=== PATIENT | female | born 1965 | race Caucasian/White ===

== ENCOUNTER 2021-03-16 08:50 | Emergency (ER) | payer OTHER, SELFPAY ==
--- NOTE | ~2021-03-16 | CT_ITS ---
EXAMINATION: CT ABDOMEN AND PELVIS WITH CONTRAST CLINICAL INFORMATION: Lower abdominal pain. COMPARISON: CT abdomen and pelvis with IV contrast 04/05/2018 TECHNIQUE: Multidetector volumetric images were obtained from the superior aspect of the liver through the pubic symphysis following administration 85 mL of Omnipaque 350 intravenous contrast. Sagittal and coronal reformatted images were obtained on the technologist's workstation. Oral contrast: No This CT examination was performed using dose optimization techniques as appropriate, variously including the following: *Automated exposure control *Adjustment of mA and/or kV according to patient size (this includes techniques or standardized protocols for targeted exams where dose is matched to indication/reason for exam; i.e. extremities or head) *Use of iterative reconstruction technique DLP: 342 mGy-cm FINDINGS: LUNG BASES: The visualized lung bases are unremarkable. LIVER, GALLBLADDER, AND BILIARY TREE: The liver is normal in size, shape, and attenuation. No focal hepatic lesion or biliary ductal dilatation is present. The gallbladder is unremarkable with no evidence of radiopaque gallstones, gallbladder wall thickening, or obvious pericholecystic inflammatory changes. PANCREAS: Unremarkable. SPLEEN: There is a 7 mm accessory splenule at the tip of the spleen.. ADRENAL GLANDS: Unremarkable. KIDNEYS AND URETERS: The kidneys are normal in size, shape, and attenuation. No hydronephrosis, hydroureter, or calculi seen. No perinephric stranding. BLADDER: Unremarkable. GASTROINTESTINAL TRACT: There is scattered colonic diverticulosis. There is mild mural thickening in numerous calculi seen in the sigmoid colon with mild fat stranding in the presacral space and left pelvic space suspicious for diverticulitis. There is no free air or air-fluid collection to suspect any perforation or abscess. Minimal free fluid is seen in the pelvis ABDOMINAL WALL: A small umbilical hernia containing fat is noted. LYMPH NODES: Normal. VASCULAR: Unremarkable. PELVIC VISCERA: There is minimal free fluid in the left pelvis. The uterus is anteverted and appears unremarkable. Previously seen subserosal fibroid is not well appreciated on this exam. No solid adnexal mass seen. OSSEOUS STRUCTURES: There is mild ventral spondylosis throughout the lumbar spine. CT/CT abdomen pelvis w con IMPRESSION: Colonic diverticulosis with mild mural thickening involving the sigmoid colon and mild fat stranding. Indication is minimal free fluid in the left pelvis. Findings are suspicious for diverticulitis. There is no free air or air-fluid collection to suspect perforation or abscess. No bowel obstruction seen.
[2021-03-16 08:55] VITALS: BP 137/83; PULSE 93; RESP 16; TEMP 36.9; O2SAT 99; BMI 22.1
--- NOTE | 2021-03-16 09:38 | ED.ABDPAIN ---
HPI - Abdominal Pain General Chief Complaint: Abdominal Pain Stated Complaint: abd pain Time Seen by Provider: 03/16/21 09:24 Source: patient Mode of arrival: ambulatory Limitations: no limitations History of Present Illness HPI narrative: 55-year-old female with a past medical history of diverticulitis here with complaints of lower abdominal pain for 2 weeks. No nausea, vomiting, diarrhea, urinary symptoms, fevers or chills. Feels similar to previous diverticulitis flares in the past Related Data Previous Rx's Medication Instructions Recorded fluconazole 150 mg tablet 150 mg PO Q3D #2 tab 03/16/21 (Diflucan) levofloxacin 750 mg tablet 750 mg PO DAILY 7 Days #7 tab 03/16/21 metronidazole 500 mg tablet 500 mg PO BID 7 Days #14 tab 03/16/21 ondansetron 4 mg disintegrating 4 mg PO Q6H PRN #10 tab 03/16/21 tablet oxycodone 5 mg tablet 5 mg PO Q8H PRN #10 tab 03/16/21 Allergies Allergy/AdvReac Type Severity Reaction Status Date / Time latex [LATEX] Allergy Intermediate HIVES Verified 03/16/21 08:57 peanut [PEANUT] AdvReac Mild COLD Verified 03/16/21 08:57 SORES peanuts Allergy Unknown hives Uncoded 05/23/16 00:00 Review of Systems Review of Systems Yes all other systems are reviewed and are negative Constitutional: Reports no additional constitutional complaints, Denies body ache(s), Denies chills, Denies fever(s), Denies headache(s) and Denies weakness Eyes: Reports no additional eye complaints and Denies change in vision Reports system reviewed and no additional complaints, except as documented, Denies dizziness, Denies headache(s), Denies nasal congestion, Denies nasal discharge and Denies neck pain Cardiovascular: Reports no additional cardiovascular complaints, Denies chest pain, Denies leg edema and Denies dyspnea Respiratory: Reports no additional respiratory complaints, Denies cough and Denies dyspnea Gastrointestinal: Reports no additional gastrointestinal complaints, Reports abdominal pain, Denies diarrhea, Denies nausea and Denies vomiting Genitourinary: Reports no additional female genitourinary complaints and Denies urinary incontinence Musculoskeletal: Reports no additional musculoskeletal complaints, Denies back pain, Denies arthralgias, Denies joint swelling, Denies neck pain, Denies numbness and Denies tingling Skin/Breast: Reports system reviewed and no additional complaints, except as docu and Denies rash Reports system reviewed and no additional complaints, except as documented, Denies Abnormal speech present, Denies dizziness, Denies headache(s), Denies numbness, Denies tingling and Denies weakness Physical Exam Vital Signs: Vital Signs: Last Vital Signs Temp 98.4 F 03/16/21 08:55 Pulse 93 03/16/21 08:55 Resp 16 03/16/21 08:55 BP 137/83 03/16/21 08:55 Pulse Ox 99 03/16/21 08:55 Body Mass Index 22.1 Const: General: cooperative, healthy appearing, comfortable and no acute distress Orientation/consciousness: patient oriented x3 Limitations: no limitations HENMT: Head: Yes normal to inspection Ears: hearing grossly normal bilaterally General nose exam: Normal external nose present Face and sinus: Yes normal facial exam Mouth: Normal oral and palatal mucosa present Throat: Yes posterior oropharynx normal Eyes: General: appearance normal, both eyes and all related structures Pupils: Equal, round and reactive pupils present Neck: Neck: Yes normal visual inspection Chest: Chest palpation & inspection: normal inspection of the chest Resp: Effort & Inspection: normal respiratory effort Auscultation: clear to auscultation bilaterally Cardio: Rate: regular rate Rhythm: regular rhythm Peripheral pulses: Peripheral pulses 2+ throughout GI: Inspection: Yes normal to inspection Palpation (GI): Soft to palpation and Tenderness to palpation present (GI) (Bilateral lower quadrants with guarding. No rebound) Auscultation: normal bowel sounds Back/Spine/Pelvis: Thoracic/Lumbar Spine: thoracic and lumbar spine normal to inspection Skin: General skin exam: no rashes or lesions noted Neuro: General: patient oriented x3, no focal motor deficits and normal sensation to monofilament Cranial nerves: Yes Equal, round and reactive pupils present Cognition (Neuro): normal cognition Speech: No Abnormal speech present Gait exam (Neuro): Normal gait present Motor exam (neuro): 5/5 motor strength present throughout Extrem: General: Yes normal to inspection Course Course Course Narrative: 55-year-old female here with lower abdominal pain for 2 weeks. History of diverticulitis and feels similar. On exam has tenderness. Will check labs, UA, CT 1240-CT scan consistent with diverticulitis. No evidence of perforation. Labs are normal. Pain well controlled. Tolerating p.o. with no vomiting. Will discharge patient home with antibiotics. Requesting Diflucan as she gets recurrent yeast infections. Reviewed worrisome signs and symptoms when to return to the emergency department. Comfortable discharge home. MDM - Abdominal Pain Differential Diagnosis Differential diagnosis: Likely abdominal pain and diverticulitis Medical Records Attestation: I reviewed the patient's medical records. Lab Data Attestation: I reviewed the patient's lab results. Result diagrams: 03/16/21 10:40 03/16/21 10:40 Labs: Lab Results 03/16/21 03/16/21 03/16/21 Range/Units 10:40 10:40 10:40 WBC 10.2 (4.8-10.8) X10*3/uL RBC 4.56 (4.20-5.50) X10*6/uL Hgb 13.5 (12.0-16.0) g/dl Hct 42.1 (37-47) % MCV 92.3 (80-98) fL MCH 29.6 (27.0-33.0) pg MCHC 32.1 (31.0-35.0) g/dl RDW 12.3 (11.0-16.0) % Plt Count 419 H (160-400) X10*3/uL MPV 9.6 (9.4-12.3) fL Immature Gran % (Auto) 0.4 (0.0-0.4) % Neut % (Auto) 74.8 H (45-73) % Lymph % (Auto) 12.3 L (20-40) % [place] % (Auto) 10.0 (2-11) % Eos % (Auto) 1.9 (0-4) % Baso % (Auto) 0.6 (0-2) % Lymph # (Auto) 1.3 (1.2-4.9) X10*3/uL [place] # (Auto) 1.0 (0.1-1.2) X10*3/uL Eos # (Auto) 0.2 (0.0-0.4) X10*3/uL Baso # (Auto) 0.1 (0.0-0.2) X10*3/uL Abs Immat Gran (auto) 0.04 H (0.00-0.03) X10*3/uL Absolute Neuts (auto) 7.7 (2.0-8.3) X10*3/uL Absolute Nucleated RBC 0.000 (0.0-0.012) X10*3/uL Nucleated RBC % (auto) 0.0 (0.0-0.2) /100WBC Sodium 138 (135-145) mmol/L Potassium 4.0 (3.3-5.1) mmol/L Chloride 103 (96-108) mmol/L Carbon Dioxide 28 (22-29) mmol/L Anion Gap 11 L (12-20) BUN 9 (9-16) mg/dL Creatinine 0.85 (0.5-1.4) mg/dL Estim Creat Clear Calc 62.6 Estimated GFR > 60 Random Glucose 92 (60-115) mg/dL Lactic Acid 0.8 (0.5-2.0) mmol/L Calcium 9.3 (8.4-10.2) mg/dL Total Bilirubin 0.7 (0.0-1.0) mg/dL Direct Bilirubin 0.3 (0.0-0.5) mg/dL AST 15 (5-31) U/L ALT 16 (0-31) U/L Alkaline Phosphatase 73 (39-117) U/L Total Protein 7.6 (6.5-8.0) g/dL Albumin 4.4 (3.5-5.0) g/dL Urine Color Urine Appearance Urine pH (5.0-8.0) Ur Specific [place] (1.005-1.025) Urine Protein (NEG-TRACE) MG/DL Urine Glucose (UA) (NEG) MG/DL Urine Ketones (NEG) MG/DL Urine Blood (NEG) Urine Nitrite (NEG) Ur Leukocyte Esterase (NEG) Urine Test (NEGATIVE) 03/16/21 03/16/21 Range/Units 10:40 10:40 WBC (4.8-10.8) X10*3/uL RBC (4.20-5.50) X10*6/uL Hgb (12.0-16.0) g/dl Hct (37-47) % MCV (80-98) fL MCH (27.0-33.0) pg MCHC (31.0-35.0) g/dl RDW (11.0-16.0) % Plt Count (160-400) X10*3/uL MPV (9.4-12.3) fL Immature Gran % (Auto) (0.0-0.4) % Neut % (Auto) (45-73) % Lymph % (Auto) (20-40) % [place] % (Auto) (2-11) % Eos % (Auto) (0-4) % Baso % (Auto) (0-2) % Lymph # (Auto) (1.2-4.9) X10*3/uL [place] # (Auto) (0.1-1.2) X10*3/uL Eos # (Auto) (0.0-0.4) X10*3/uL Baso # (Auto) (0.0-0.2) X10*3/uL Abs Immat Gran (auto) (0.00-0.03) X10*3/uL Absolute Neuts (auto) (2.0-8.3) X10*3/uL Absolute Nucleated RBC (0.0-0.012) X10*3/uL Nucleated RBC % (auto) (0.0-0.2) /100WBC Sodium (135-145) mmol/L Potassium (3.3-5.1) mmol/L Chloride (96-108) mmol/L Carbon Dioxide (22-29) mmol/L Anion Gap (12-20) BUN (9-16) mg/dL Creatinine (0.5-1.4) mg/dL Estim Creat Clear Calc Estimated GFR Random Glucose (60-115) mg/dL Lactic Acid (0.5-2.0) mmol/L Calcium (8.4-10.2) mg/dL Total Bilirubin (0.0-1.0) mg/dL Direct Bilirubin (0.0-0.5) mg/dL AST (5-31) U/L ALT (0-31) U/L Alkaline Phosphatase (39-117) U/L Total Protein (6.5-8.0) g/dL Albumin (3.5-5.0) g/dL Urine Color YELLOW Urine Appearance CLEAR Urine pH 6.5 (5.0-8.0) Ur Specific [place] 1.010 (1.005-1.025) Urine Protein NEG (NEG-TRACE) MG/DL Urine Glucose (UA) NEG (NEG) MG/DL Urine Ketones NEG (NEG) MG/DL Urine Blood NEG (NEG) Urine Nitrite NEG (NEG) Ur Leukocyte Esterase NEG (NEG) Urine Test NEGATIVE (NEGATIVE) Imaging Data CT scan - abdomen: Attestation: I personally reviewed and interpreted this imaging study as follows: Radiologist's impression: IMPRESSION: Colonic diverticulosis with mild mural thickening involving the sigmoid colon and mild fat stranding. Indication is minimal free fluid in the left pelvis. Findings are suspicious for diverticulitis. There is no free air or air-fluid collection to suspect perforation or abscess. No bowel obstruction seen. Discharge Plan Discharge Clinical Impression: Diverticulitis Patient Disposition: Home, Self-Care Instructions: Diverticulitis (ED), Diverticulitis Diet (ED) Additional Instructions: Return for fever, 2 or more vomiting episodes, severe pain Prescriptions: New metronidazole 500 mg tablet 500 mg PO BID 7 Days Qty: 14 RF: 0 levofloxacin 750 mg tablet 750 mg PO DAILY 7 Days Qty: 7 RF: 0 ondansetron 4 mg tablet,disintegrating 4 mg PO Q6H PRN (Reason: nausea and vomiting) Qty: 10 RF: 0 fluconazole [Diflucan] 150 mg tablet 150 mg PO Q3D Qty: 2 RF: 0 oxycodone 5 mg tablet 5 mg PO Q8H PRN (Reason: pain) Qty: 10 RF: 0 Referrals: Arina Joe MD [Primary Care Provider] - 2 days Stand Alone Forms: Work/School Release [facility] Past Medical History Attestation statement: The following information was validated with the patient. Source: old records reviewed and nursing notes reviewed Medical History (Updated 03/16/21 @ 12:28 by Cheyanne Cardenas NP) Diverticulitis Surgical History (Updated 03/16/21 @ 09:40 by Cheyanne Cardenas NP) H/O hernia repair Social History Social History Advance Directives: No
[2021-03-16 10:46] LABS: MANUAL DIFF FLAG NO
[2021-03-16] MEDS: ondansetron HCL 4 MG/2 ML VIAL IVPUSH (10:46)
[2021-03-16] MEDS: Morphine Sulfate 4 MG/ML CARTRIDGE IVPUSH (10:46)
[2021-03-16 10:48] LABS: Appearance Urine CLEAR; Color Urine YELLOW; Glucose Urine UA NEG (NEG); Leukocyte Esterase Urine NEG (NEG); Nitrite Urine NEG (NEG); PH 6.5 (5.0-8.0); Urine Blood NEG (NEG); Urine Ketones NEG (NEG); Urine Protein NEG (NEG-TRACE)
[2021-03-16 10:51] LABS: Basophils Absolute Auto 0.1 X10*3/uL (0.0-0.2); Basophils Percent Auto 0.6 % (0-2); Eosinophils Absolute Auto 0.2 X10*3/uL (0.0-0.4); Eosinophils Percent Auto 1.9 % (0-4); Hematocrit 42.1 % (37-47); Hemoglobin 13.5 g/dl (12.0-16.0); Imm Gran Abs Auto 0.04 X10*3/uL (0.00-0.03); Imm Gran Pct Auto 0.4 % (0.0-0.4); Lymphocytes Absolute Auto 1.3 X10*3/uL (1.2-4.9); Lymphocytes Percent Auto 12.3 % (20-40); Mean Corpuscular HGB Conc 32.1 g/dl (31.0-35.0); Mean Corpuscular Hemoglobin 29.6 pg (27.0-33.0); Mean Corpuscular Volume 92.3 fL (80-98); Mean Platelet Volume 9.6 fL (9.4-12.3); Neutrophils Absolute Auto 7.7 X10*3/uL (2.0-8.3); Neutrophils Percent Auto 74.8 % (45-73); Platelet Count 419 X10*3/uL (160-400); Red Blood Count 4.56 X10*6/uL (4.20-5.50); Red Cell Distribution Width 12.3 % (11.0-16.0); UPreg QC Valid YES; Urine Pregnancy NEGATIVE (NEGATIVE); White Blood Count 10.2 X10*3/uL (4.8-10.8)
[2021-03-16 11:00] LABS: Lactic Acid 0.8 mmol/L (0.5-2.0)
[2021-03-16 11:04] LABS: Alanine Aminotransferase 16 U/L (0-31); Albumin Level 4.4 g/dL (3.5-5.0); Alkaline Phosphatase 73 U/L (39-117); Anion Gap 11 (12-20); Aspartate Amino Transferase 15 U/L (5-31); Bilirubin Direct 0.3 mg/dL (0.0-0.5); Bilirubin Total 0.7 mg/dL (0.0-1.0); Blood Urea Nitrogen 9 mg/dL (9-16); Calcium 9.3 mg/dL (8.4-10.2); Carbon Dioxide 28 mmol/L (22-29); Chloride 103 mmol/L (96-108); Creatinine Clr Calc Pharmacy 62.6; Estimated Glomerular Filt Rate > 60; Glucose Random 92 mg/dL (60-115); Sodium 138 mmol/L (135-145); Total Protein 7.6 g/dL (6.5-8.0)
[2021-03-16] MEDS: iohexoL 350 MG/ML 100 ML INFUS..BTL IV (11:28)
== END 2021-03-16 12:42 | disposition home or self-care (01) ==
PROVIDERS: Nurse Practitioner Family; Emergency Provider Emergency Medicine; PCP Internal Medicine
DX: K57.32 Diverticulitis of large intestine without perforation or abscess without bleeding (principal); R10.30 Lower abdominal pain, unspecified; Z79.899 Other long term (current) drug therapy
CPT/HCPCS: 36415; 74177; 80048; 80076; 81003; 81025; 83605; 85025; 87040; 96374; 96375; 99283; 99284; J2270; J2405; Q9967

== ENCOUNTER 2021-06-01 08:10 | Inpatient (IN) | payer OTHER, SELFPAY ==
[2021-06-01] VITALS (18 sets, daily range): BP systolic 102–137; BP diastolic 53–83; PULSE 69–118; RESP 15–22; TEMP 36.6–38.5; O2SAT 97–100; BMI 21.2
--- NOTE | ~2021-06-01 | CT_ITS ---
EXAMINATION: CT ABDOMEN AND PELVIS WITH CONTRAST CLINICAL INFORMATION: Suprapubic/left lower quadrant pain. History of diverticulitis. COMPARISON: CT of the abdomen and pelvis 03/16/2021. TECHNIQUE: Multidetector volumetric images were obtained from the superior aspect of the liver through the pubic symphysis following administration 85 mL of Omnipaque 350 intravenous contrast. Sagittal and coronal reformatted images were obtained on the technologist's workstation. Oral contrast: No This CT examination was performed using dose optimization techniques as appropriate, variously including the following: *Automated exposure control *Adjustment of mA and/or kV according to patient size (this includes techniques or standardized protocols for targeted exams where dose is matched to indication/reason for exam; i.e. extremities or head) *Use of iterative reconstruction technique DLP: 347 mGy-cm FINDINGS: LUNG BASES: The visualized lung bases are unremarkable. LIVER, GALLBLADDER, AND BILIARY TREE: The liver is normal in size, shape, and attenuation. No focal hepatic lesion or biliary ductal dilatation is present. The gallbladder is unremarkable with no evidence of radiopaque gallstones, gallbladder wall thickening, or obvious pericholecystic inflammatory changes. PANCREAS: Unremarkable. SPLEEN: Unremarkable. ADRENAL GLANDS: Unremarkable. KIDNEYS AND URETERS: The kidneys are normal in size, shape, and attenuation. No hydronephrosis, hydroureter, or calculi seen. No perinephric stranding. BLADDER: Unremarkable. GASTROINTESTINAL TRACT: There is extensive sigmoid diverticulosis. There is no definite wall thickening. However, there is a localized fluid collection in the right hemipelvis adjacent to the sigmoid colon with a few bubbles of air suspicious for a localized perforated diverticulitis with small abscess. This fluid collection measures approximately 2.3 x 2.8 x 1.4 cm. There are additional scattered bubbles of free air throughout the abdomen, including around the liver. There is a small hiatal hernia. The stomach and small bowel are unremarkable. ABDOMINAL WALL: No significant hernia is appreciated. LYMPH NODES: Normal. VASCULAR: Unremarkable. PELVIC VISCERA: Unremarkable. OSSEOUS STRUCTURES: Mild lumbar spondylosis and mild osteoarthritis of both hips are again noted. CT/CT abdomen pelvis w con IMPRESSION: Findings, as described above, suspicious for a localized perforated sigmoid diverticulitis with a small adjacent abscess in the right hemipelvis and scattered bubbles of free air in the abdomen. This Critical Result was discussed with Mary Levy MD on 06/01/2021 at 11:27am.
[2021-06-01 08:36] LABS: MANUAL DIFF FLAG NO
[2021-06-01 08:37] LABS: Basophils Percent Auto 0.1 % (0-2); Hematocrit 43.3 % (37.0-47.0); Hemoglobin 14.3 g/dl (12.0-16.0); Imm Gran Abs Auto 0.02 X10*3/uL (0.00-0.03); Imm Gran Pct Auto 0.3 % (0.0-0.4); Lymphocytes Absolute Auto 0.9 X10*3/uL (1.2-4.9); Mean Corpuscular Hemoglobin 29.8 pg (27.0-33.0); Mean Corpuscular Volume 90.2 fL (80.0-98.0); Mean Platelet Volume 10.5 fL (9.4-12.3); Monocytes Absolute Auto 0.6 X10*3/uL (0.1-1.2); Monocytes Percent Auto 8.7 % (2-11); Neutrophils Absolute Auto 5.6 x10*3/uL (2.0-8.3); Neutrophils Percent Auto 78.9 % (45-73); Platelet Count 214 X10*3/uL (160-400); Red Cell Distribution Width 13.4 % (11.0-16.0); White Blood Count 7.1 X10*3/uL (4.8-10.8)
[2021-06-01 08:53] LABS: COVID-19 Test Positive (Negative)
[2021-06-01 08:54] LABS: Anion Gap 13 (12-20); Blood Urea Nitrogen 14 mg/dL (9-16); Carbon Dioxide 23 mmol/L (22-29); Chloride 103 mmol/L (96-108); Creatinine Clr Calc Pharmacy 54.7; Estimated Glomerular Filt Rate > 60; Glucose Random 129 mg/dL (60-115); Potassium 3.7 mmol/L (3.3-5.1); Sodium 135 mmol/L (135-145)
[2021-06-01 09:01] LABS: Troponin-I High Sensitivity < 3.5 ng/L (<3.5-17.0)
--- NOTE | 2021-06-01 09:01 | ED_ITS ---
HPI - Abdominal Pain General Chief Complaint: Syncope Stated Complaint: ABD PAIN X'S 3 DAYS, SYNC EPISODE THIS AM W/LOC Time Seen by Provider: 06/01/21 08:51 Source: patient Mode of arrival: ambulatory Limitations: no limitations History of Present Illness HPI narrative: Patient comes to the emergency room complaining of abdominal pain. Patient states it started approximately 3 days ago, complaining of intense cramping. Earlier this morning, patient states that she passed out due to the pain in the suprapubic area and left lower quadrant. Patient has history of diverticulitis. Patient complaining of nausea, no vomiting or diarrhea. Related Data Home Medications Medication Instructions Recorded Confirmed bupropion HCl 150 mg 24 hr tablet, 1 tab PO BEDTIME 06/01/21 06/01/21 extended release bupropion HCl 300 mg 24 hr tablet, 1 tab PO BEDTIME 06/01/21 06/01/21 extended release loratadine 10 mg tablet 10 mg PO DAILY 06/01/21 06/01/21 Allergies Allergy/AdvReac Type Severity Reaction Status Date / Time latex [LATEX] Allergy Intermediate HIVES Verified 03/16/21 08:57 peanut [PEANUT] AdvReac Mild COLD Verified 03/16/21 08:57 SORES peanuts Allergy Unknown hives Uncoded 05/23/16 00:00 Review of Systems Review of Systems Constitutional : No Weight loss, No Fever, No Chills, No Night Sweats, No Fatigue, No Malaise ENT/Mouth : No Hearing loss, No Ear Pain, No Nasal Congestion, No Sinus Pain, No Hoarseness, No sore throat, No Rhinorrhea, No Swallowing Difficulty Eyes: No Eye Pain, No Swelling, No Redness, No Foreign Body, No Discharge, No Vision Changes Cardiovascular : No Chest Pain, No SOB, No Dyspnea on Exertion, No Orthopnea, No Edema, No Palpitations Respiratory : No Cough, No Sputum, No Wheezing, No Smoke Exposure, No Dyspnea Gastrointestinal : Complaining of nausea, No Vomiting, No Diarrhea, No Constipation, complaining of suprapubic and left lower quadrant pain, No Hematochezia, No Melena Genitourinary : no irregular bleeding, No Dysuria, No Urinary Frequency, No Hematuria, No Urinary Incontinence, No Urgency, No Flank Pain, No Urinary Flow Changes, No Hesitancy Musculoskeletal : No joint pain, No Myalgias, No Joint Swelling Skin : No Skin Lesions, No rash Neuro : No Weakness, No Numbness, No Paresthesias, No Loss of Consciousness, No Dizziness, No Headache Psych : No Anxiety/Panic, No Depression, No SI/HI/AH/VH, No Social Issues, Heme/Lymph: No Bruising, No Bleeding,No Lymphadenopathy Endocrine : No Polyuria, No Polydipsia, No Temperature Intolerance Physical Exam Vital Signs: Vital Signs: Last Vital Signs Temp 101.3 F H 06/01/21 09:22 Pulse 84 06/01/21 13:15 Resp 18 06/01/21 13:15 BP 112/67 06/01/21 13:15 Pulse Ox 97 06/01/21 13:15 BMI result Body Mass Index 21.2 Const: Other: Appearance: Alert. Oriented X3. Seems to have significant abdominal pain Eyes: Pupils equal, round and reactive to light. ENT: Pharynx normal. Neck: Normal inspection. Neck supple. No lymph nodes noted. No crepitus CVS: Normal heart rate and rhythm. Pulses normal. Normal S1 and S2 Respiratory: No respiratory distress. Breath sounds normal. No Wheezing. No ral es Abdomen: Soft , pain to palpation in suprapubic and left lower quadrant, no rebound, no guarding No rigidity. No distention. Skin: Skin warmer a normal temperatureand dry. Normal skin color. Normal skin turgor. Extremities: No lower extremity edema. No lower extremity edema. No Lacerations. No Rash Neuro: Oriented X 3. No motor deficit. No sensory deficit. Moving all extermities. No slurred speech. Course Course Course Narrative: Initial temperature 99.5 degrees. On physical exam patient feels warmer than 99.5, rectal temperature shows a temperature of 101.3F Patient's COVID test is positive. Likely the source of patient's fever. Patient has no upper respiratory symptoms. All of her labs are pending. Patient is receiving IV fluids, Zofran and morphine for abdominal pain 1129: radiology report shows free air, small bubbles in the abdomen, likely a small abscesses adjacent to the sigmoid colon. Patient was started on Zosyn, surgery consult has been requested 11:38: I discussed the patient with Dr. Wilson patient was admitted by surgery patient syncopal episode likely vasovagal secondary to pain MDM - Abdominal Pain Lab Data Result diagrams: 06/01/21 08:32 06/01/21 08:32 Labs: Lab Results 06/01/21 06/01/21 06/01/21 Range/Units 08:32 08:32 08:32 WBC 7.1 (4.8-10.8) X10*3/uL RBC 4.80 (4.20-5.50) X10*6/uL Hgb 14.3 (12.0-16.0) g/dl Hct 43.3 (37.0-47.0) % MCV 90.2 (80.0-98.0) fL MCH 29.8 (27.0-33.0) pg MCHC 33.0 (31.0-35.0) g/dl RDW 13.4 (11.0-16.0) % Plt Count 214 (160-400) X10*3/uL MPV 10.5 (9.4-12.3) fL Immature Gran % (Auto) 0.3 (0.0-0.4) % Neut % (Auto) 78.9 H (45-73) % Lymph % (Auto) 12.0 L (20-40) % [place] % (Auto) 8.7 (2-11) % Eos % (Auto) 0.0 (0-4) % Baso % (Auto) 0.1 (0-2) % Lymph # (Auto) 0.9 L (1.2-4.9) X10*3/uL [place] # (Auto) 0.6 (0.1-1.2) X10*3/uL Eos # (Auto) 0.0 (0.0-0.4) X10*3/uL Baso # (Auto) 0.0 (0.0-0.2) X10*3/uL Abs Immat Gran (auto) 0.02 (0.00-0.03) X10*3/uL Absolute Neuts (auto) 5.6 (2.0-8.3) x10*3/uL Absolute Nucleated RBC 0.000 (0.0-0.012) X10*3/uL Nucleated RBC % (auto) 0.0 (0.0-0.2) /100WBC Sodium 135 (135-145) mmol/L Potassium 3.7 (3.3-5.1) mmol/L Chloride 103 (96-108) mmol/L Carbon Dioxide 23 (22-29) mmol/L Anion Gap 13 (12-20) BUN 14 (9-16) mg/dL Creatinine 0.96 (0.5-1.4) mg/dL Estim Creat Clear Calc 54.7 Estimated GFR > 60 Random Glucose 129 H (60-115) mg/dL Lactic Acid (0.5-2.0) mmol/L Calcium 9.0 (8.4-10.2) mg/dL Total Bilirubin 0.5 (0.0-1.0) mg/dL Direct Bilirubin 0.2 (0.0-0.5) mg/dL AST 21 (5-31) U/L ALT 23 (0-31) U/L Alkaline Phosphatase 47 D (39-117) U/L Troponin I High Sens < 3.5 (<3.5-17.0) ng/L Total Protein 7.0 (6.5-8.0) g/dL Albumin 4.1 (3.5-5.0) g/dL Lipase 40 (8-78) U/L Urine Color Urine Appearance Urine pH (5.0-8.0) Ur Specific [place] (1.005-1.025) Urine Protein (NEG-TRACE) MG/DL Urine Glucose (UA) (NEG) MG/DL Urine Ketones (NEG) MG/DL Urine Blood (NEG) Urine Nitrite (NEG) Ur Leukocyte Esterase (NEG) Urine RBC (0) /HPF Urine WBC (0-4) /HPF Ur Squamous Epith Cells /LPF Ur Renal Epithelial Cell /LPF Amorphous Sediment /LPF Urine Bacteria /LPF Hyaline Casts /LPF Granular Casts /LPF Urine Mucus /LPF COVID-19 (LEXI) (Negative) COVID-19 Clin Com 06/01/21 06/01/21 06/01/21 Range/Units 08:36 09:54 10:06 WBC (4.8-10.8) X10*3/uL RBC (4.20-5.50) X10*6/uL Hgb (12.0-16.0) g/dl Hct (37.0-47.0) % MCV (80.0-98.0) fL MCH (27.0-33.0) pg MCHC (31.0-35.0) g/dl RDW (11.0-16.0) % Plt Count (160-400) X10*3/uL MPV (9.4-12.3) fL Immature Gran % (Auto) (0.0-0.4) % Neut % (Auto) (45-73) % Lymph % (Auto) (20-40) % [place] % (Auto) (2-11) % Eos % (Auto) (0-4) % Baso % (Auto) (0-2) % Lymph # (Auto) (1.2-4.9) X10*3/uL [place] # (Auto) (0.1-1.2) X10*3/uL Eos # (Auto) (0.0-0.4) X10*3/uL Baso # (Auto) (0.0-0.2) X10*3/uL Abs Immat Gran (auto) (0.00-0.03) X10*3/uL Absolute Neuts (auto) (2.0-8.3) x10*3/uL Absolute Nucleated RBC (0.0-0.012) X10*3/uL Nucleated RBC % (auto) (0.0-0.2) /100WBC Sodium (135-145) mmol/L Potassium (3.3-5.1) mmol/L Chloride (96-108) mmol/L Carbon Dioxide (22-29) mmol/L Anion Gap (12-20) BUN (9-16) mg/dL Creatinine (0.5-1.4) mg/dL Estim Creat Clear Calc Estimated GFR Random Glucose (60-115) mg/dL Lactic Acid 0.9 (0.5-2.0) mmol/L Calcium (8.4-10.2) mg/dL Total Bilirubin (0.0-1.0) mg/dL Direct Bilirubin (0.0-0.5) mg/dL AST (5-31) U/L ALT (0-31) U/L Alkaline Phosphatase (39-117) U/L Troponin I High Sens (<3.5-17.0) ng/L Total Protein (6.5-8.0) g/dL Albumin (3.5-5.0) g/dL Lipase (8-78) U/L Urine Color DK YELLOW Urine Appearance HAZY Urine pH 6.0 (5.0-8.0) Ur Specific [place] 1.025 (1.005-1.025) Urine Protein 2+ H (NEG-TRACE) MG/DL Urine Glucose (UA) NEG (NEG) MG/DL Urine Ketones 15 (NEG) MG/DL Urine Blood NEG (NEG) Urine Nitrite NEG (NEG) Ur Leukocyte Esterase NEG (NEG) Urine RBC 0-2 (0) /HPF Urine WBC 0-2 (0-4) /HPF Ur Squamous Epith Cells TRACE /LPF Ur Renal Epithelial Cell TRACE /LPF Amorphous Sediment 1+ /LPF Urine Bacteria NONE /LPF Hyaline Casts 0-2 /LPF Granular Casts 0-2 /LPF Urine Mucus 1+ /LPF COVID-19 (LEXI) Positive A (Negative) COVID-19 Clin Com See Note Imaging Data CT scan - abdomen: Radiologist's impression: FINDINGS: LUNG BASES: The visualized lung bases are unremarkable.? LIVER, GALLBLADDER, AND BILIARY TREE: The liver is normal in size, shape, and attenuation. No focal hepatic lesion or biliary ductal dilatation is present. The gallbladder is unremarkable with no evidence of radiopaque gallstones, gallbladder wall thickening, or obvious pericholecystic inflammatory changes.? PANCREAS: Unremarkable.? SPLEEN: Unremarkable.? ADRENAL GLANDS: Unremarkable.? KIDNEYS AND URETERS: The kidneys are normal in size, shape, and attenuation. No hydronephrosis, hydroureter, or calculi seen. No perinephric stranding. ? BLADDER: Unremarkable.? GASTROINTESTINAL TRACT: There is extensive sigmoid diverticulosis. There is no definite wall thickening. However, there is a localized fluid collection in the right hemipelvis adjacent to the sigmoid colon with a few bubbles of air suspicious for a localized perforated diverticulitis with small abscess. This fluid collection measures approximately 2.3 x 2.8 x 1.4 cm. There are additional scattered bubbles of free air throughout the abdomen, including around the liver. There is a small hiatal hernia. The stomach and small bowel are unremarkable.? ABDOMINAL WALL: No significant hernia is appreciated.? LYMPH NODES: Normal. VASCULAR: Unremarkable. PELVIC VISCERA: Unremarkable.? OSSEOUS STRUCTURES: Mild lumbar spondylosis and mild osteoarthritis of both hips are again noted.? CT/CT abdomen pelvis w con IMPRESSION: Findings, as described above, suspicious for a localized perforated sigmoid diverticulitis with a small adjacent abscess in the right hemipelvis and scattered bubbles of free air in the abdomen. Discharge Plan Discharge Clinical Impression: Diverticulitis of colon with perforation, Vasovagal syncope Patient Disposition: Admitted As Inpatient Interventions: Admission Worksheet (ED) Last Done: 06/01/21 12:45 PMFSH Past Medical History Medical History (Updated 06/01/21 @ 16:09 by Mary Levy MD) Depression Diverticulitis Surgical History H/O hernia repair Social History Social History Patient Tobacco Use Status: Never used Tobacco Use of substances other than those prescribed or required for medical reasons: No Advance Directives: No Advance Directives Information Provided: Yes
[2021-06-01 09:14] LABS: Alanine Aminotransferase 23 U/L (0-31); Albumin Level 4.1 g/dL (3.5-5.0); Alkaline Phosphatase 47 U/L (39-117); Aspartate Amino Transferase 21 U/L (5-31); Bilirubin Direct 0.2 mg/dL (0.0-0.5); Bilirubin Total 0.5 mg/dL (0.0-1.0); Lipase 40 U/L (8-78)
--- NOTE | 2021-06-01 09:30 | ECG_ITS ---
Test Reason : syncope Blood Pressure : / mmHG Vent. Rate : 088 BPM Atrial Rate : 088 BPM P-R Int : 140 ms QRS Dur : 080 ms QT Int : 346 ms P-R-T Axes : 053 076 057 degrees QTc Int : 418 ms Normal sinus rhythm Normal ECG No previous ECGs available Referred By: Mary Levy Electronically Signed By:Justin Lentz
--- NOTE | 2021-06-01 09:36 | PC.NURSE ---
Off unit to CT scan
[2021-06-01] MEDS: iohexoL 350 MG/ML 100 ML INFUS..BTL 85 ML IV (09:40)
[2021-06-01 10:03] LABS: Appearance Urine HAZY; Color Urine DK YELLOW; Glucose Urine UA NEG (NEG); Leukocyte Esterase Urine NEG (NEG); Nitrite Urine NEG (NEG); Specific Gravity - Urine 1.025 (1.005-1.025); UACC Culture Trigger NO; Urine Blood NEG (NEG); Urine Ketones 15 MG/DL (NEG); Urine Protein 2+ MG/DL (NEG-TRACE)
[2021-06-01] MEDS: Morphine Sulfate 4 MG/ML CARTRIDGE IVPUSH (10:09)
[2021-06-01] MEDS: ondansetron HCL 4 MG/2 ML VIAL IVPUSH (10:09)
[2021-06-01] MEDS: 0.9 % Sodium Chloride 2,000 ML 999 ML IVCONT (10:09)
[2021-06-01] MEDS: Acetaminophen Supp 650 MG SUPP.RECT PR (10:10)
[2021-06-01 10:16] LABS: Amorphous Sediment Urine 1+ /LPF; Granular Casts Urine 0-2 /LPF; Hyaline Casts Urine 0-2 /LPF; Mucus Urine 1+ /LPF; RBC Urine 0-2 /HPF (0); Renal Epithelial Cells Urine TRACE /LPF; Squamous Epithelial Cell Urine TRACE /LPF; WBC Urine 0-2 /HPF (0-4)
[2021-06-01 10:21] LABS: Lactic Acid 0.9 mmol/L (0.5-2.0)
--- NOTE | 2021-06-01 11:53 | ECG_ITS ---
Test Reason : ABD PAIN Blood Pressure : / mmHG Vent. Rate : 083 BPM Atrial Rate : 083 BPM P-R Int : 124 ms QRS Dur : 084 ms QT Int : 372 ms P-R-T Axes : 037 080 047 degrees QTc Int : 437 ms Normal sinus rhythm Normal ECG When compared with ECG of 01-JUN-2021 09:24, No significant change was found Referred By: Gibran Wilson Electronically Signed By:Justin Lentz
[2021-06-01] MEDS: Piperacillin Sodium/Tazobactam 3.375 GM in 0.9 % Sodium Chloride 50 ML IV ×2 (12:39→19:47)
--- NOTE | 2021-06-01 12:56 | PM.HPGS ---
History of Present Illness History of Present Illness Date of Service: 06/02/21 Chief complaint: Perforated diverticulitis Narrative: Sherie Llanes is a 56 year old female with history of diverticulitis, came to the emergency room this morning because of lower abdominal pain. She states that this has been going on for about 3 days now. This seemed to be worsening however. She denies any diarrhea constipation. She denies GI bleed. She does admit to having chills at home. Review of her records actually show that she was seen in the ED last March, for acute diverticulitis of the sigmoid colon. She admitted to the hospital at that time. She says she had a colonoscopy in the past and this was unremarkable. She says she 1st an episode of acute diverticulitis about 2-3 years ago. She says that this is probably her 3rd episode as far she can recall. Review of Systems Constitutional: Constitutional: Reports chills and Reports fever(s) Cardiovascular: Cardiovascular: Denies chest pain, Reports syncope, Denies dyspnea and Denies dyspnea on exertion Respiratory: Respiratory: Denies cough, Denies dyspnea and Denies dyspnea on exertion Gastrointestinal: Gastrointestinal: Denies hematochezia and Denies change in bowel habits Genitourinary: Genitourinary: Denies hematuria Musculoskeletal: Musculoskeletal: Denies back pain and Denies limited range of motion Neurologic: Reports syncope, Denies focal weakness and Denies convulsions Psychiatric: Psychiatric: Denies depression and Denies mood swings PMFSH Past Medical History Medical History (Updated 06/01/21 @ 16:09 by Mary Levy MD) Depression Diverticulitis Functional capacity: independent ambulation Surgical History Surgical History H/O hernia repair Social History Social History Household Members: Family Housing: House Do you presently have visiting nurse or other home services: No Patient Tobacco Use Status: Never used Tobacco service: No Current occupational status: employed Meds Allergies Allergy/AdvReac Type Severity Reaction Status Date / Time latex [LATEX] Allergy Intermediate HIVES Verified 03/16/21 08:57 peanut [PEANUT] AdvReac Mild COLD Verified 03/16/21 08:57 SORES peanuts Allergy Unknown hives Uncoded 05/23/16 00:00 Active Medications: Current Medications Lactated Ringer's (Lr) 1,000 mls @ 100 mls/hr IVCONT .Q10H SHERIE Sodium Chloride (0.9 % Sodium Chloride Flush 3 Ml Syringe) 3 ml IVFLUSH QSHIFT HSERIE Home Medications Medication Instructions Recorded Confirmed Last Taken Type bupropion HCl 150 mg 24 hr tablet, 1 tab PO BEDTIME 06/01/21 06/01/21 Unknown History extended release bupropion HCl 300 mg 24 hr tablet, 1 tab PO BEDTIME 06/01/21 06/01/21 Unknown History extended release loratadine 10 mg tablet 10 mg PO DAILY 06/01/21 06/01/21 Unknown History Physical Exam Vital Signs: Vital Signs: Last Vital Signs Temp 101.3 F H 06/01/21 09:22 Pulse 91 06/01/21 10:11 Resp 16 06/01/21 10:11 BP 125/70 06/01/21 10:11 Pulse Ox 97 06/01/21 10:11 BMI result Body Mass Index 21.2 Const: General: no acute distress Orientation/consciousness: patient oriented x3 Neck: Neck: Yes no lymphadenopathy Resp: Auscultation: clear to auscultation bilaterally Cardio: Rhythm: regular rhythm GI: Other: significant tenderness on the lower abdomen with some guarding Palpation (GI): Soft to palpation, Tenderness to palpation present (GI) and Guarding due to palpation present (GI) Neuro: General: patient oriented x3 Results Results Labs: Short CBC 06/01/21 Range/Units 08:32 WBC 7.1 (4.8-10.8) X10*3/uL Hgb 14.3 (12.0-16.0) g/dl Hct 43.3 (37.0-47.0) % Plt Count 214 (160-400) X10*3/uL BMP 06/01/21 08:32 Sodium 135 Potassium 3.7 Chloride 103 Carbon Dioxide 23 BUN 14 Creatinine 0.96 Calcium 9.0 Liver Function 06/01/21 Range/Units 08:32 Total Bilirubin 0.5 (0.0-1.0) mg/dL Direct Bilirubin 0.2 (0.0-0.5) mg/dL AST 21 (5-31) U/L ALT 23 (0-31) U/L Alkaline Phosphatase 47 D (39-117) U/L Albumin 4.1 (3.5-5.0) g/dL Urine 06/01/21 Range/Units 09:54 Urine Color DK YELLOW Urine Appearance HAZY Urine pH 6.0 (5.0-8.0) Ur Specific [place] 1.025 (1.005-1.025) Urine Protein 2+ H (NEG-TRACE) MG/DL Urine Glucose (UA) NEG (NEG) MG/DL Abdomen CT scan report/results: report reviewed and image reviewed CT scan - pelvis: report reviewed and image reviewed Assessment and Plan (1) Diverticulitis of colon with perforation: Status: Acute 56-year-old female in the ER for lower abdominal pain. I have reviewed her CAT scan with the radiologist and this shows changes in the sigmoid consistent with diverticulitis along with a small abscess. Furthermore, there are multiple locus of air in the upper abdomen assisted with perforation. She really does not have significant leukocytosis. Her pulse rate is 91. She however significantly tender in lower abdomen along with some guarding. Furthermore, this is her 3rd episode of diverticulitis. In view of her significant tenderness the multiple locules of air in the upper abdomen, I told her that it would be best to proceed with laparotomy, sigmoid resection and likely stoma. I reviewed with her the technique of this procedure. I had a lengthy discussion with her about the risks including but not limited to bleeding, infections, injury to the urinary tract, injury to other organs including the rest of the bowel, stoma complications, inherent risks of anesthesia, as well as the benefits and alternatives. She understands and agrees to proceed. We are going to proceed with laparotomy as soon as the OR is ready. The patient is also COVID positive tested here in the ER. She denies significant respiratory complaints. I had discussed the plan with the patient's mother Kim at [phone] Quality Stroke Does the patient have a stroke diagnosis?: No VTE Prior VTE?: No VTE Risk Level:: Medical - moderate - high VTE Device Contraindication: N/A - Device Ordered VTE Drug Contraindication: N/A - Med Ordered Procedures Date of Service Date of Service: 06/01/21
--- NOTE | 2021-06-01 13:20 | PC.NURSE ---
Pt's daughter Paulina: [phone]
--- NOTE | 2021-06-01 14:28 | PC.NURSE ---
Pt to OR at this time, update provided to pt's daughter with Pt's permission.
--- NOTE | 2021-06-01 14:56 | P.CONAN_ITS ---
HPI - Anesthesia Eval Consult details Narrative: 56 F with perforated sigmoid diverticulitis . Covid postive . h/o Syncope with LOC . PMFSH Active Problems Active Problems: All Active Problems (Updated 06/01/21 @ 12:58 by Gibran Wilson MD) Depression (Acute) Diverticulitis of colon with perforation (Acute) Past Medical History Medical History (Updated 06/01/21 @ 16:09 by Mary Levy MD) Depression Diverticulitis Functional capacity: independent ambulation Family History Family history of problems with anesthesia: No Surgical History Surgical History H/O hernia repair History of Problems with Anesthesia: No Social History Social History Patient Tobacco Use Status: Never used Tobacco Use of substances other than those prescribed or required for medical reasons: No Advance Directives: No Advance Directives Information Provided: Yes Meds Allergies Allergy/AdvReac Type Severity Reaction Status Date / Time latex [LATEX] Allergy Intermediate HIVES Verified 03/16/21 08:57 peanut [PEANUT] AdvReac Mild COLD Verified 03/16/21 08:57 SORES peanuts Allergy Unknown hives Uncoded 05/23/16 00:00 Active Medications: Current Medications Lactated Ringer's (Lr) 1,000 mls @ 100 mls/hr IVCONT .Q10H [facility] Last Admin: 06/01/21 14:34 Dose: Not Given Documented by: Pharmacy Consult (Consult Rx Perform Med Rec) 1 each MISCELLANE ONCE PRN PRN Reason: Consult order Sodium Chloride (0.9 % Sodium Chloride Flush 3 Ml Syringe) 3 ml IVFLUSH QSHIFT [facility] Home Medications Medication Instructions Recorded Confirmed Last Taken Type bupropion HCl 150 mg 24 hr tablet, 1 tab PO BEDTIME 06/01/21 06/01/21 Unknown History extended release bupropion HCl 300 mg 24 hr tablet, 1 tab PO BEDTIME 06/01/21 06/01/21 Unknown History extended release loratadine 10 mg tablet 10 mg PO DAILY 06/01/21 06/01/21 Unknown History Exam Exam Date and Time: June 01, 2021 1456 Height,Weight and Vital Signs: Height 5 ft 3 in Weight 54.431 kg Last Vital Signs Temp 101.3 F H 06/01/21 09:22 Pulse 84 06/01/21 13:15 Resp 18 06/01/21 13:15 BP 112/67 06/01/21 13:15 Pulse Ox 97 06/01/21 13:15 Pertinent Lab Results Pertinent Lab Results: Laboratory Tests 06/01/21 06/01/21 06/01/21 08:32 08:32 08:32 WBC 7.1 RBC 4.80 Hgb 14.3 Hct 43.3 MCV 90.2 MCH 29.8 MCHC 33.0 RDW 13.4 Plt Count 214 MPV 10.5 Immature Gran % (Auto) 0.3 Neut % (Auto) 78.9 H Lymph % (Auto) 12.0 L [place] % (Auto) 8.7 Eos % (Auto) 0.0 Baso % (Auto) 0.1 Lymph # (Auto) 0.9 L [place] # (Auto) 0.6 Eos # (Auto) 0.0 Baso # (Auto) 0.0 Abs Immat Gran (auto) 0.02 Absolute Neuts (auto) 5.6 Absolute Nucleated RBC 0.000 Nucleated RBC % (auto) 0.0 Sodium 135 Potassium 3.7 Chloride 103 Carbon Dioxide 23 Anion Gap 13 BUN 14 Creatinine 0.96 Estim Creat Clear Calc 54.7 Estimated GFR > 60 Random Glucose 129 H Lactic Acid Calcium 9.0 Total Bilirubin 0.5 Direct Bilirubin 0.2 AST 21 ALT 23 Alkaline Phosphatase 47 D Troponin I High Sens < 3.5 Total Protein 7.0 Albumin 4.1 Lipase 40 Urine Color Urine Appearance Urine pH Ur Specific [place] Urine Protein Urine Glucose (UA) Urine Ketones Urine Blood Urine Nitrite Ur Leukocyte Esterase Urine RBC Urine WBC Ur Squamous Epith Cells Ur Renal Epithelial Cell Amorphous Sediment Urine Bacteria Hyaline Casts Granular Casts Urine Mucus COVID-19 (LEXI) COVID-19 Clin Com 06/01/21 06/01/21 06/01/21 08:36 09:54 10:06 WBC RBC Hgb Hct MCV MCH MCHC RDW Plt Count MPV Immature Gran % (Auto) Neut % (Auto) Lymph % (Auto) [place] % (Auto) Eos % (Auto) Baso % (Auto) Lymph # (Auto) [place] # (Auto) Eos # (Auto) Baso # (Auto) Abs Immat Gran (auto) Absolute Neuts (auto) Absolute Nucleated RBC Nucleated RBC % (auto) Sodium Potassium Chloride Carbon Dioxide Anion Gap BUN Creatinine Estim Creat Clear Calc Estimated GFR Random Glucose Lactic Acid 0.9 Calcium Total Bilirubin Direct Bilirubin AST ALT Alkaline Phosphatase Troponin I High Sens Total Protein Albumin Lipase Urine Color DK YELLOW Urine Appearance HAZY Urine pH 6.0 Ur Specific [place] 1.025 Urine Protein 2+ H Urine Glucose (UA) NEG Urine Ketones 15 Urine Blood NEG Urine Nitrite NEG Ur Leukocyte Esterase NEG Urine RBC 0-2 Urine WBC 0-2 Ur Squamous Epith Cells TRACE Ur Renal Epithelial Cell TRACE Amorphous Sediment 1+ Urine Bacteria NONE Hyaline Casts 0-2 Granular Casts 0-2 Urine Mucus 1+ COVID-19 (LEXI) Positive A COVID-19 Clin Com See Note Airway Mallampati Class: II TM Dist: >3cm Loose/Missing/Broken Teeth: Yes Heart: rrr Lungs: bl breath sounds Assessment and Plan Final Anesthetic Review Family History of Problems with Anesthesia: No History of Problems with Anesthesia: No NPO: Yes ASA Class: III and Emergency Patient Risk: High Procedure Risk: Intermediate Anesthetic Plan Anesthetic Plan: GA Disposition: Inp. Admit - Standard Bed
--- NOTE | 2021-06-01 15:58 | W.PM.OPN ---
Operative Note Operative Note Date of Service: 06/01/21 Narrative: Preop diagnosis: Perforated diverticulitis Postop diagnosis: Perforated diverticulitis, sigmoid Procedure: Laparotomy, sigmoid resection, end colostomy Surgeon: Gibran Wilson MD pharmaceutical assistant: ANGELI Teixeira The patient is a 56-year-old female who came to the emergency room this morning because of lower abdominal pain x3 days. Her CAT scan showed acute diverticulitis, likely with an abscess along with multiple locules of air in the upper abdomen consistent with perforated diverticulitis. I reviewed her imaging. The radiologist. She was also very tender to touch on examination on the lower abdomen. I therefore recommended were to proceed with laparotomy and likely sigmoid resection and end-colostomy. She understood the technique of the planned procedure. She was aware of the risks, benefits, and alternatives . She was brought to the operating room and placed supine on the table under general anesthesia via endotracheal tube. The patient was COVID positive on testing so COVID precautions were undertaken. The abdomen is prepped and draped in the usual sterile fashion. A Garzon catheter was inserted.A surgical time-out was done. The Patient received Cefotan 2 g IV preoperatively . A low midline incision was made on the skin using blade 10. And this was carried down through the full-thickness of skin subcutaneous fat with electrocautery. I incised the midline of the fascia as well and entered the peritoneum. I extended the incision to optimize the length of the skin incision. Bookwalter retractors were then positioned for optimal retraction. Examination of the abdominal cavity revealed murky peritoneal fluid in the pelvis. Furthermore, there was note of a strong odor of stool from the colon consistent with her perforation. The cecum was low-lying so we had to retract this with lap pads. The sigmoid was seen and this was pulled up into the field. The proximal sigmoid appeared uninflamed. However, the distal sigmoid showed significant inflammatory changes with marked edema, erythema, fibrinous exudates as well as murky fluid surrounding this. I was able to pull up the sigmoid as this was very redundant. By examining the mid to distal sigmoid, I was able to visualize what appeared to be small perforation surrounded by significant inflammatory pericolonic fat, withfibrinous exudates. There was note of what appeared to be an abscess cavity as well in the distal sigmoid near the presacral area on the right side. I suctioned this purulent appearing fluid and cultures were taken. I was able to identify the normal looking colon the mid sigmoid. I shows this as my point of transection as this appeared to be supple and was far enough from the perforated area. I created a mesenteric defect. I divided this with the GI 60 mm stapler through this mesenteric defect. I then proceeded to divide the attached mesentery of the distal sigmoid using the LigaSure to mobilize this. I also incised the thickened and inflamed peritoneum on both the left and the right side of the mesentery to allow more mobilization. I followed this incision of the peritoneum to divide the indurated and inflamed mesosigmoid using the LigaSure going distally. I was able to get past this indurated segment. However, distally, there was still note of a lot of fibrinous exudates likely reactive because of the perforation and adjacent abscess. Furthermore, the distal sigmoid was folded on itself towards the rectum so I had to release this as well with gentle dissection with electrocautery. I was able to therefore put the entire distal sigmoid at the rectosigmoid on stretch. I was able to therefore expose the entire indurated area. I continued to further divide the distal mesosigmoid until I was at the sacral curve. I was able to therefore feel for the full area of the distal sigmoid at the rectosigmoid. I divided this by clamping the proximal aspect with a bowel clamp and using the TA 60 mm stapler distally. This was divided distal to the clamp and proximal to stapler using a knife. The disease sigmoid was therefore sent as a specimen as well. There was note of some oozing from the staple line of the rectosigmoid and had to apply [id number] Dexon 3-0 sutures to control this. Once hemostasis was ensured, I proceeded to then inspect the proximal sigmoid. This was supple and did not have any significant inflammatory changes. We had enough length of the proximal sigmoid to bring out a stoma. Examined adjacent cecum earlier and this appeared to be unremarkable except for some reactive hyperemia. There were no other abscess collections. There was some localized peritonitis in the pelvis . In view of the presence of purulent fluid earlier, I positioned a 7 ALESIA drain in the pelvis just adjacent to the staple line of the rectosigmoid. This ALESIA drain brought out through an exit site at right lower quadrant and was secured to the skin with nylon 3-0 ring sutures. I copiously irrigated the pelvis then I observed for hemostasis. Once hemostasis was ensured, I proceeded to then remove the packings to bring out our colostomy. I excise a discoid piece of skin on the left lower quadrant that had been marked earlier using a blade 10. I then cauterized through the subcutaneous layer down to the fascia, and incised the fascia all the way through the rectus to create our opening for the stoma. I was able to pull up the staple line of the sigmoid with a [place] clamp through this opening. Again we had adequate length and there was no evidence of any twisting of this loop. I decided to mature the stoma after closure of the abdominal wall. We therefore changed gloves.I observed for hemostasis again in the pelvis. Once this was confirmed, I closed the fascia with a running Maxon 1 stitch. I irrigated the subcutaneous layer copiously. We then closed the skin with skin xavier. We protected the midline incision with a blue towel. I then proceeded to mature the stoma. I excised the staple line with electrocautery. I secured the wall of the sigmoid stoma to the subdermal layer with a circumferential row of Dexon 3-0 sutures. I then proceeded to insert an index finger through the and this was patent past the fascial level. The incision was infiltrated with Marcaine 0.5% for postop analgesia. Dressings were applied. A stoma appliance was also placed. The procedure was then completed. The patient tolerated the procedure well. There were no immediate complications noted. Initial and final counts of sponges and instruments were correct. Estimated blood loss was about 100 cc . The patient was extubated without difficulty. Recovery was done in the OR itself because of the patient being COVID positive.
--- NOTE | 2021-06-01 17:23 | PM.EVENT ---
Event Note Date of Service: 06/01/21 Event Note: patient seen postop - underwent laparotomy, sigmoid resection and end colostomy for perforated diverticulitis earlier appears to have adequate pain control stable vital signs abdomen soft stoma viable ALESIA drain - dark blood, acceptable amount continue pain management good urine output patient's mother updated
[2021-06-01] MEDS: 0.9 % Sodium Chloride Flush 3 ML SYRINGE IVFLUSH (19:46)
[2021-06-01] MEDS: Ketorolac Tromethamine 30 MG/ML VIAL 15 MG IVPUSH (19:46)
[2021-06-01] MEDS: buPROPion HCl XL 300 MG TAB.ER.24H PO (19:47)
[2021-06-01 20:00] LABS: Blood Urea Nitrogen 7 mg/dL (9-16); Creatinine Clr Calc Pharmacy 60.4; Estimated Glomerular Filt Rate > 60; Glucose Random 112 mg/dL (60-115)
[2021-06-01 20:11] LABS: Anion Gap 8 (12-20); Calcium 8.2 mg/dL (8.4-10.2); Carbon Dioxide 28 mmol/L (22-29); Chloride 106 mmol/L (96-108); Potassium 4.2 mmol/L (3.3-5.1); Sodium 138 mmol/L (135-145)
[2021-06-01] MEDS: Lactated Ringers 1,000 ML 100 ML IVCONT (21:24)
[2021-06-02] VITALS (10 sets, daily range): BP systolic 101–122; BP diastolic 58–73; PULSE 71–89; RESP 18–20; TEMP 36.6–37.3; O2SAT 96–99
[2021-06-02] MEDS: Piperacillin Sodium/Tazobactam 3.375 GM in 0.9 % Sodium Chloride 50 ML IV ×4 (01:30→20:27)
[2021-06-02] MEDS: Ketorolac Tromethamine 30 MG/ML VIAL 15 MG IVPUSH ×4 (01:31→20:28)
[2021-06-02] MEDS: 0.9 % Sodium Chloride Flush 3 ML SYRINGE IVFLUSH ×2 (01:31→07:24)
[2021-06-02] MEDS: Morphine Sulfate 4 MG/ML CARTRIDGE 3 MG IVPUSH ×3 (05:07→13:51)
[2021-06-02 06:25] LABS: Hematocrit 35.6 % (37.0-47.0); Hemoglobin 11.4 g/dl (12.0-16.0); Mean Corpuscular Hemoglobin 29.5 pg (27.0-33.0); Mean Corpuscular Volume 92.2 fL (80.0-98.0); Mean Platelet Volume 10.8 fL (9.4-12.3); Platelet Count 151 X10*3/uL (160-400); Red Blood Count 3.86 X10*6/uL (4.20-5.50); Red Cell Distribution Width 13.6 % (11.0-16.0); White Blood Count 7.4 X10*3/uL (4.8-10.8)
[2021-06-02] MEDS: Lactated Ringers 1,000 ML 100 ML IVCONT ×2 (06:35→20:26)
--- NOTE | 2021-06-02 07:00 | PC.NURSE ---
Addendum entered by Edmund Guzman RN 06/02/21 07:52: Morphine given for abd pain at at approx 0500 with good affect, as well as scheduled IV tylenol and toradol. Original Note: shift eval 11p-7a: ALESIA drainage at approx midnight 60ml bloody drainage, 40ml same color at 0500. Patient c/o abd tenderness - bowel sounds absent at this time. midline lower abd dressing small stain. Incen spirom - patient educated - able to do 1750ml - done x4. Minimal amt serosang drainage from new colostomy - stoma beefy red / moist.
--- NOTE | 2021-06-02 08:34 | MHC.CM.PN ---
Patient does not have a cell # listed and she did not answer at her room Ext. [phone]; CM spoke with S.O./Chris at [phone]. Patient lives in a house with her S.O. and adult Daughters and she is functionally independent and working. Home/no services is the goal for dc and CM has initiated and will follow for dc planning. PCP is Dr. Arina Joe.
[2021-06-02] MEDS: Heparin Sodium,Porcine 5,000 UNIT/ML VIAL 5000 UNIT SUBCUT ×2 (08:43→20:27)
--- NOTE | 2021-06-02 10:14 | HO.POSTANES ---
Post Anesthesia Evaluation Post Anesthesia Evaluation Vital Signs: Vital Signs Temp Pulse Resp BP Pulse Ox 06/02/21 07:43 98.9 F 73 18 102/65 98 06/02/21 05:38 71 18 122/70 06/02/21 05:00 18 112/66 06/02/21 03:53 98.9 F 77 20 101/60 99 06/02/21 00:00 98.2 F 76 18 107/64 96 Anesthesia: General Endotracheal-GETA Mental Status: Awake Pain Control: Satisfactory Nausea/Vomiting: None Hydration: Adequate Anesthesia-Related Issues: No Anes. Related Issues
--- NOTE | 2021-06-02 10:33 | P.CDIC_ITS ---
CDI Concurrent Query Documentation Clarification: PHYSICIAN'S DOCUMENTATION REQUEST Date of Query: 06/02/21 1036 Patient Name: Sherie Llanes Admit Date: 06/01/21 Dear Doctor, A review of the medical record indicates additional documentation may be needed. Please review below and update the documentation accordingly. Risk Factors/Clinical Indicators/Treatments Per Operative report 06/01/21: distal sigmoid showed significant inflammatory changes with marked edema, erythema, fibrinous Jose as well as murky fluid surrounding this. By examining the mid to distal sigmoid, able to visualize appeared to be small perforation surrounded by significant inflammatory pericolonic fat, in fibrinous exudates. Based on the above, could you clarify in the Progress Notes the appropriate diagnosis, if significant, that supports the above abnormalities and additional evaluation, monitoring, and/or treatment rendered: * Diverticulosis of colon with perforation * Diverticulosis of colon with perforation and peritonitis * Other (please specify) * Unable to determine Use of terms such as suspected, likely, concern for, or probable (associated with a specific diagnosis that is being evaluated, monitored, or treated as if it exists) are acceptable and can be coded in the inpatient setting, when documented at the time of discharge. Thank you, Kacie Jauregui RN Extension: [phone] Please use your independent medical judgment in providing your response. THIS QUERY IS PART OF THE PERMANENT MEDICAL RECORD Provider Response: Other (Diverticulitis with perforation and abscess) Other Diagnosis: Diverticulitis with perforation and abscess
--- NOTE | 2021-06-02 12:23 | PM.PNGS ---
Subjective Subjective Date of Service: 06/02/21 Interval history: Says she feels ?okay? Seems to have adequate pain control Admits to being sore on incisions Says she feels better than yesterday Physical Exam Vital Signs: Vital Signs: Last Vital Signs Temp 99.2 F 06/02/21 11:19 Pulse 74 06/02/21 11:19 Resp 18 06/02/21 11:19 BP 109/63 06/02/21 11:19 Pulse Ox 99 06/02/21 11:19 BMI result Body Mass Index 21.2 Const: General: comfortable and no acute distress Orientation/consciousness: patient oriented x3 Resp: Effort & Inspection: normal respiratory effort Cardio: Rate: regular rate GI: Other: Soft, dressings dry, ALESIA drain very scanty output serosanguineous, stoma viable, healthy looking, no significant output yet Neuro: General: patient oriented x3 Objective Data Active Medications Bupropion HCl (Bupropion Hcl Xl 300 Mg Tab.Er.24h) 300 mg PO BEDTIME [facility] Last Admin: 06/01/21 19:47 Dose: 300 mg Documented by: LITTLE Heparin Sodium (Porcine) (Heparin Sodium,Porcine 5,000 Unit/Ml Vial) 5,000 unit SUBCUT Q12H [facility] Last Admin: 06/02/21 08:43 Dose: 5,000 unit Documented by: BETH Lactated Ringer's (Lr) 1,000 mls @ 100 mls/hr IVCONT .Q10H [facility] Last Admin: 06/02/21 06:35 Dose: 100 mls/hr Documented by: HANNA Promethazine HCl 12.5 mg/ (Sodium Chloride) 50.5 mls @ 202 mls/hr IV ONCE PRN PRN Reason: Nausea and Vomiting Piperacillin Sod/Tazobactam (Sod 3.375 gm/ Sodium Chloride) 50 mls @ 100 mls/hr IV Q6H [facility] Last Infusion: 06/02/21 08:00 Dose: 0 mls/hr Documented by: BETH Acetaminophen (Ofirmev) 1,000 mg in 100 mls @ 400 mls/hr IV Q6H [facility] Stop: 06/02/21 19:14 Last Admin: 06/02/21 12:15 Dose: 400 mls/hr Documented by: BETH Ketorolac Tromethamine (Ketorolac Tromethamine 30 Mg/Ml Vial) 15 mg IVPUSH Q6H [facility] Last Admin: 06/02/21 08:43 Dose: 15 mg Documented by: BETH Morphine Sulfate (Morphine Sulfate 4 Mg/Ml Cartridge) 3 mg IVPUSH Q3H PRN; Protocol PRN Reason: Pain, Severe (Pain Scale 7-10) Last Admin: 06/02/21 10:01 Dose: 3 mg Documented by: BETH Ondansetron HCl (Ondansetron Hcl 4 Mg/2 Ml Vial) 4 mg IVPUSH Q8H PRN PRN Reason: Nausea Oxycodone HCl (Oxycodone Hcl Immed Release 5 Mg Tablet) 5 mg PO Q4H PRN PRN Reason: Pain, Moderate (Pain Scale 4-6 Oxycodone HCl (Oxycodone Hcl Immed Release 5 Mg Tablet) 10 mg PO Q4H PRN PRN Reason: Pain, Severe (Pain Scale 7-10) Pharmacy Consult (Consult Rx Perform Med Rec) 1 each MISCELLANE ONCE PRN PRN Reason: Consult order Sodium Chloride (0.9 % Sodium Chloride Flush 3 Ml Syringe) 3 ml IVFLUSH QSHIFT [facility] Last Admin: 06/02/21 07:24 Dose: 3 ml Documented by: BETH Labs CBC & Chem 7: 06/02/21 06:06 06/01/21 19:10 Labs: Laboratory Results - last 24 hr 06/01/21 06/02/21 19:10 06:06 MCV 92.2 MCH 29.5 MCHC 32.0 RDW 13.6 Plt Count 151 L D MPV 10.8 Absolute Nucleated RBC 0.000 Nucleated RBC % (auto) 0.0 Anion Gap 8 L Estim Creat Clear Calc 60.4 Estimated GFR > 60 Random Glucose 112 Calcium 8.2 L D Microbiology Microbiology Results: Microbiology 06/01/21 10:06 Blood Culture - Preliminary Blood - Venous No growth after 24 hours. 06/01/21 09:54 Blood Culture - Preliminary Blood - Venous No growth after 24 hours. 06/01/21 14:45 Gram Stain - Final Peritoneum Routine Culture - Preliminary No growth to date. Procedures Date of Service Date of Service: 06/02/21 Progress Note: A&P Assessment and plan (1) Diverticulitis of colon with perforation: Status: Acute Assessment and Plan: Status post Shayy's procedure. Pain management Continue IV Zosyn Clear liquids Await return of GI function Likely DC Garzon later Out of bed to chair Instructed on spirometry Fall Risk Details Current Medications: Current Medications Bupropion HCl (Bupropion Hcl Xl 300 Mg Tab.Er.24h) 300 mg PO BEDTIME [facility] Last Admin: 06/01/21 19:47 Dose: 300 mg Documented by: Heparin Sodium (Porcine) (Heparin Sodium,Porcine 5,000 Unit/Ml Vial) 5,000 unit SUBCUT Q12H [facility] Last Admin: 06/02/21 08:43 Dose: 5,000 unit Documented by: Lactated Ringer's (Lr) 1,000 mls @ 100 mls/hr IVCONT .Q10H [facility] Last Admin: 06/02/21 06:35 Dose: 100 mls/hr Documented by: Promethazine HCl 12.5 mg/ (Sodium Chloride) 50.5 mls @ 202 mls/hr IV ONCE PRN PRN Reason: Nausea and Vomiting Piperacillin Sod/Tazobactam (Sod 3.375 gm/ Sodium Chloride) 50 mls @ 100 mls/hr IV Q6H [facility] Last Infusion: 06/02/21 08:00 Dose: Infused Documented by: Acetaminophen (Ofirmev) 1,000 mg in 100 mls @ 400 mls/hr IV Q6H [facility] Stop: 06/02/21 19:14 Last Admin: 06/02/21 12:15 Dose: 400 mls/hr Documented by: Ketorolac Tromethamine (Ketorolac Tromethamine 30 Mg/Ml Vial) 15 mg IVPUSH Q6H [facility] Last Admin: 06/02/21 08:43 Dose: 15 mg Documented by: Morphine Sulfate (Morphine Sulfate 4 Mg/Ml Cartridge) 3 mg IVPUSH Q3H PRN; Protocol PRN Reason: Pain, Severe (Pain Scale 7-10) Last Admin: 06/02/21 10:01 Dose: 3 mg Documented by: Ondansetron HCl (Ondansetron Hcl 4 Mg/2 Ml Vial) 4 mg IVPUSH Q8H PRN PRN Reason: Nausea Oxycodone HCl (Oxycodone Hcl Immed Release 5 Mg Tablet) 5 mg PO Q4H PRN PRN Reason: Pain, Moderate (Pain Scale 4-6 Oxycodone HCl (Oxycodone Hcl Immed Release 5 Mg Tablet) 10 mg PO Q4H PRN PRN Reason: Pain, Severe (Pain Scale 7-10) Pharmacy Consult (Consult Rx Perform Med Rec) 1 each MISCELLANE ONCE PRN PRN Reason: Consult order Sodium Chloride (0.9 % Sodium Chloride Flush 3 Ml Syringe) 3 ml IVFLUSH [facility] Last Admin: 06/02/21 07:24 Dose: 3 ml Documented by: Time Spent With Patient Time: Total time spent is greater than 50% in coordination of care (as documented) at patient's floor/unit and/or counseling patient: Time with patient: 15 - 24 minutes Quality Stroke Does the patient have a stroke diagnosis?: No VTE Prior VTE?: No VTE Risk Level:: Medical - moderate - high VTE Device Contraindication: N/A - Device Ordered VTE Drug Contraindication: N/A - Med Ordered
--- NOTE | 2021-06-02 14:10 | PM.EVENT ---
Event Note Date of Service: 06/02/21 Event Note: Seen on afternoon rounds She has incisional pain but otherwise well controlled Tolerating clear liquids Stable vital signs Abdomen soft Stoma viable looking, no output yet, ALESIA drain serosanguineous Good urine output DC Garzon Out of bed to chair Doing well postoperatively so for
--- NOTE | 2021-06-02 17:11 | PC.NURSE ---
Took over care of patient at 17:10. Pt A&OX3. Pleasant and cooperative. Speech is clear and appropriate. LS-Dim. Pt denies cough/sob at this time. Pt tolerating diet. Abdominal dressing-CD&I. ALESIA drain intact with serosanguineous fluid. Ostomy intact with serosanguineous drainage. Stoma healthy red. Pt ambulating in room with steady gait. No c/o pain/N/V. IV fluids infusing as ordered. Will continue to monitor.
[2021-06-02] MEDS: buPROPion HCl XL 300 MG TAB.ER.24H PO (20:28)
[2021-06-02] MEDS: oxyCODONE HCl Immed Release 5 MG TABLET 10 MG PO (21:25)
[2021-06-03] MEDS: Piperacillin Sodium/Tazobactam 3.375 GM in 0.9 % Sodium Chloride 50 ML IV ×4 (01:52→19:19)
[2021-06-03 03:35] VITALS: BP 113/67; PULSE 79; RESP 18; TEMP 37.1; O2SAT 97
[2021-06-03] MEDS: Ketorolac Tromethamine 30 MG/ML VIAL 15 MG IVPUSH ×4 (03:35→19:18)
[2021-06-03] MEDS: Lactated Ringers 1,000 ML 100 ML IVCONT ×3 (03:37→22:44)
[2021-06-03 07:13] VITALS: BP 135/79; PULSE 100; RESP 18; TEMP 36.6; O2SAT 96
--- NOTE | 2021-06-03 08:40 | PM.PNGS ---
Subjective Subjective Date of Service: 06/07/21 Interval history: Complaints of incisional pain Describes passageof small amounts of flatus periodically from her stoma Voiding freely without Garzon catheter Tolerating clear liquids Physical Exam Vital Signs: Vital Signs: Last Vital Signs Temp 97.8 F 06/03/21 07:13 Pulse 100 06/03/21 07:13 Resp 18 06/03/21 07:13 BP 135/79 06/03/21 07:13 Pulse Ox 96 06/03/21 07:13 BMI result Body Mass Index 21.2 Const: General: comfortable and no acute distress Resp: Effort & Inspection: normal respiratory effort Cardio: Rate: regular rate GI: Other: Colostomy viable, with mild edema, small amount of stool, ALESIA drain with scanty old blood, dressings dry Palpation (GI): Soft to palpation, not firm, no guarding and not rigid Objective Data Active Medications Bupropion HCl (Bupropion Hcl Xl 300 Mg Tab.Er.24h) 300 mg PO BEDTIME [facility] Last Admin: 06/02/21 20:28 Dose: 300 mg Documented by: RAYMOND Heparin Sodium (Porcine) (Heparin Sodium,Porcine 5,000 Unit/Ml Vial) 5,000 unit SUBCUT Q12H [facility] Last Admin: 06/02/21 20:27 Dose: 5,000 unit Documented by: RAYMOND Lactated Ringer's (Lr) 1,000 mls @ 100 mls/hr IVCONT .Q10H [facility] Last Admin: 06/03/21 03:37 Dose: 100 mls/hr Documented by: RAYMOND Promethazine HCl 12.5 mg/ (Sodium Chloride) 50.5 mls @ 202 mls/hr IV ONCE PRN PRN Reason: Nausea and Vomiting Piperacillin Sod/Tazobactam (Sod 3.375 gm/ Sodium Chloride) 50 mls @ 100 mls/hr IV Q6H [facility] Last Infusion: 06/03/21 02:28 Dose: 0 mls/hr Documented by: RAYMOND Ketorolac Tromethamine (Ketorolac Tromethamine 30 Mg/Ml Vial) 15 mg IVPUSH Q6H [facility] Last Admin: 06/03/21 03:35 Dose: 15 mg Documented by: RAYMOND Morphine Sulfate (Morphine Sulfate 4 Mg/Ml Cartridge) 3 mg IVPUSH Q3H PRN; Protocol PRN Reason: Pain, Severe (Pain Scale 7-10) Last Admin: 06/02/21 13:51 Dose: 3 mg Documented by: BETH Ondansetron HCl (Ondansetron Hcl 4 Mg/2 Ml Vial) 4 mg IVPUSH Q8H PRN PRN Reason: Nausea Oxycodone HCl (Oxycodone Hcl Immed Release 5 Mg Tablet) 5 mg PO Q4H PRN PRN Reason: Pain, Moderate (Pain Scale 4-6 Oxycodone HCl (Oxycodone Hcl Immed Release 5 Mg Tablet) 10 mg PO Q4H PRN PRN Reason: Pain, Severe (Pain Scale 7-10) Last Admin: 06/02/21 21:25 Dose: 10 mg Documented by: RAYMOND Pharmacy Consult (Consult Rx Perform Med Rec) 1 each MISCELLANE ONCE PRN PRN Reason: Consult order Sodium Chloride (0.9 % Sodium Chloride Flush 3 Ml Syringe) [facility] Last Admin: 06/03/21 00:13 Dose: Not Given Documented by: RAYMOND Non-Admin Reason: IV Running Labs CBC & Chem 7: 06/02/21 06:06 06/04/21 05:51 Microbiology Microbiology Results: Microbiology 06/01/21 10:06 Blood Culture - Preliminary Blood - Venous No growth after 24 hours. 06/01/21 09:54 Blood Culture - Preliminary Blood - Venous No growth after 24 hours. 06/01/21 14:45 Gram Stain - Final Peritoneum Routine Culture - Preliminary No growth to date. Procedures Date of Service Date of Service: 06/03/21 Progress Note: A&P Assessment and plan (1) Diverticulitis of colon with perforation: Status: Acute Assessment and Plan: Status post Shayy's procedure Small amount of stool and flatus noted from her ostomy She looks well clinically Possibly advance diet later on today Out of bed and ambulate Incentive spirometry Continue IV antibiotics Dressing change today Fall Risk Details Current Medications: Current Medications Bupropion HCl (Bupropion Hcl Xl 300 Mg Tab.Er.24h) 300 mg PO BEDTIME [facility] Last Admin: 06/02/21 20:28 Dose: 300 mg Documented by: Heparin Sodium (Porcine) (Heparin Sodium,Porcine 5,000 Unit/Ml Vial) 5,000 unit SUBCUT Q12H [facility] Last Admin: 06/02/21 20:27 Dose: 5,000 unit Documented by: Lactated Ringer's (Lr) 1,000 mls @ 100 mls/hr IVCONT .Q10H [facility] Last Admin: 06/03/21 03:37 Dose: 100 mls/hr Documented by: Promethazine HCl 12.5 mg/ (Sodium Chloride) 50.5 mls @ 202 mls/hr IV ONCE PRN PRN Reason: Nausea and Vomiting Piperacillin Sod/Tazobactam (Sod 3.375 gm/ Sodium Chloride) 50 mls @ 100 mls/hr IV Q6H [facility] Last Infusion: 06/03/21 02:28 Dose: Infused Documented by: Ketorolac Tromethamine (Ketorolac Tromethamine 30 Mg/Ml Vial) 15 mg IVPUSH Q6H [facility] Last Admin: 06/03/21 03:35 Dose: 15 mg Documented by: Morphine Sulfate (Morphine Sulfate 4 Mg/Ml Cartridge) 3 mg IVPUSH Q3H PRN; Protocol PRN Reason: Pain, Severe (Pain Scale 7-10) Last Admin: 06/02/21 13:51 Dose: 3 mg Documented by: Ondansetron HCl (Ondansetron Hcl 4 Mg/2 Ml Vial) 4 mg IVPUSH Q8H PRN PRN Reason: Nausea Oxycodone HCl (Oxycodone Hcl Immed Release 5 Mg Tablet) 5 mg PO Q4H PRN PRN Reason: Pain, Moderate (Pain Scale 4-6 Oxycodone HCl (Oxycodone Hcl Immed Release 5 Mg Tablet) 10 mg PO Q4H PRN PRN Reason: Pain, Severe (Pain Scale 7-10) Last Admin: 06/02/21 21:25 Dose: 10 mg Documented by: Pharmacy Consult (Consult Rx Perform Med Rec) 1 each MISCELLANE ONCE PRN PRN Reason: Consult order Sodium Chloride (0.9 % Sodium Chloride Flush 3 Ml Syringe) 3 ml IVFLUSH QSHIFT [facility] Last Admin: 06/03/21 00:13 Dose: Not Given Documented by: Time Spent With Patient Time: Total time spent is greater than 50% in coordination of care (as documented) at patient's floor/unit and/or counseling patient: Time with patient: 15 - 24 minutes Quality Stroke Does the patient have a stroke diagnosis?: No VTE Prior VTE?: No VTE Risk Level:: Medical - moderate - high VTE Device Contraindication: N/A - Device Ordered VTE Drug Contraindication: N/A - Med Ordered
[2021-06-03] MEDS: Heparin Sodium,Porcine 5,000 UNIT/ML VIAL 5000 UNIT SUBCUT ×2 (09:17→19:18)
[2021-06-03] MEDS: 0.9 % Sodium Chloride Flush 3 ML SYRINGE IVFLUSH ×3 (09:18→19:19)
[2021-06-03] MEDS: oxyCODONE HCl Immed Release 5 MG TABLET PO (10:56)
[2021-06-03 11:24] VITALS: BP 125/76; PULSE 81; RESP 16; TEMP 37.3; O2SAT 99
[2021-06-03 16:00] VITALS: BP 125/62; PULSE 82; RESP 19; TEMP 37.1; O2SAT 98
[2021-06-03] MEDS: buPROPion HCl XL 300 MG TAB.ER.24H PO (19:19)
[2021-06-03 19:33] VITALS: BP 145/90; PULSE 76; RESP 18; TEMP 36.4; O2SAT 100
[2021-06-03 23:46] VITALS: BP 137/74; PULSE 79; RESP 18; TEMP 36.7; O2SAT 97
[2021-06-04] MEDS: oxyCODONE HCl Immed Release 5 MG TABLET PO (00:24)
[2021-06-04] MEDS: Piperacillin Sodium/Tazobactam 3.375 GM in 0.9 % Sodium Chloride 50 ML IV ×4 (00:25→20:33)
[2021-06-04 03:51] VITALS: BP 140/76; PULSE 80; RESP 18; TEMP 36.8; O2SAT 98
[2021-06-04 07:01] LABS: Anion Gap 10 (12-20); Blood Urea Nitrogen 5 mg/dL (9-16); Calcium 7.9 mg/dL (8.4-10.2); Carbon Dioxide 28 mmol/L (22-29); Chloride 105 mmol/L (96-108); Creatinine Clr Calc Pharmacy 93.8; Estimated Glomerular Filt Rate > 60; Glucose Random 83 mg/dL (60-115); Potassium 3.5 mmol/L (3.3-5.1); Sodium 139 mmol/L (135-145)
[2021-06-04 08:00] VITALS: BP 128/71; PULSE 76; RESP 18; TEMP 37.9; O2SAT 99
[2021-06-04] MEDS: Heparin Sodium,Porcine 5,000 UNIT/ML VIAL 5000 UNIT SUBCUT ×2 (09:01→20:33)
[2021-06-04] MEDS: Ketorolac Tromethamine 30 MG/ML VIAL 15 MG IVPUSH ×3 (09:01→20:33)
[2021-06-04] MEDS: 0.9 % Sodium Chloride Flush 3 ML SYRINGE IVFLUSH (09:02)
[2021-06-04] MEDS: Lactated Ringers 1,000 ML 100 ML IVCONT (10:05)
--- NOTE | 2021-06-04 10:39 | PM.PNGS ---
Subjective Subjective Date of Service: 06/04/21 Interval history: Patient reports incisional soreness. Ostomy producing gas and stool (liquid brown). She is tolerating clear liquid diet without nausea or vomiting. Physical Exam Vital Signs: Vital Signs: Last Vital Signs Temp 100.2 F 06/04/21 08:00 Pulse 76 06/04/21 08:00 Resp 18 06/04/21 08:00 BP 128/71 06/04/21 08:00 Pulse Ox 99 06/04/21 08:00 BMI result Body Mass Index 21.2 Const: General: no acute distress Nutritional Appearance: well nourished Orientation/consciousness: patient oriented x3 Limitations: no limitations Resp: Effort & Inspection: normal respiratory effort GI: Other: Midline incision is clean and intact. Small amount of ecchymosis noted around the incision ostomy in the left lower quadrant is patent and functioning well. Liquid stool noted within the bag. ALESIA drain is draining serosanguineous output. Dressings changed. Skin: Other: Warm, dry, no rash or erythema Neuro: General: patient oriented x3 Extrem: General: Yes no clubbing, cyanosis or edema Objective Data Active Medications Bupropion HCl (Bupropion Hcl Xl 300 Mg Tab.Er.24h) 300 mg PO BEDTIME [facility] Last Admin: 06/03/21 19:19 Dose: 300 mg Documented by: CARLOS Heparin Sodium (Porcine) (Heparin Sodium,Porcine 5,000 Unit/Ml Vial) 5,000 unit SUBCUT Q12H [facility] Last Admin: 06/04/21 09:01 Dose: 5,000 unit Documented by: HAYDEN Lactated Ringer's (Lr) 1,000 mls @ 100 mls/hr IVCONT .Q10H [facility] Last Admin: 06/04/21 10:05 Dose: 100 mls/hr Documented by: HAYDEN Promethazine HCl 12.5 mg/ (Sodium Chloride) 50.5 mls @ 202 mls/hr IV ONCE PRN PRN Reason: Nausea and Vomiting Piperacillin Sod/Tazobactam (Sod 3.375 gm/ Sodium Chloride) 50 mls @ 100 mls/hr IV Q6H [facility] Last Infusion: 06/04/21 10:21 Dose: 0 mls/hr Documented by: HAYDEN Ketorolac Tromethamine (Ketorolac Tromethamine 30 Mg/Ml Vial) 15 mg IVPUSH Q6H [facility] Last Admin: 06/04/21 09:01 Dose: 15 mg Documented by: HAYDEN Morphine Sulfate (Morphine Sulfate 4 Mg/Ml Cartridge) 3 mg IVPUSH Q3H PRN; Protocol PRN Reason: Pain, Severe (Pain Scale 7-10) Last Admin: 06/02/21 13:51 Dose: 3 mg Documented by: BETH Ondansetron HCl (Ondansetron Hcl 4 Mg/2 Ml Vial) 4 mg IVPUSH Q8H PRN PRN Reason: Nausea Oxycodone HCl (Oxycodone Hcl Immed Release 5 Mg Tablet) 5 mg PO Q4H PRN PRN Reason: Pain, Moderate (Pain Scale 4-6 Last Admin: 06/04/21 00:24 Dose: 5 mg Documented by: MICHELLE Oxycodone HCl (Oxycodone Hcl Immed Release 5 Mg Tablet) 10 mg PO Q4H PRN PRN Reason: Pain, Severe (Pain Scale 7-10) Last Admin: 06/02/21 21:25 Dose: 10 mg Documented by: RAYMOND Pharmacy Consult (Consult Rx Perform Med Rec) 1 each MISCELLANE ONCE PRN PRN Reason: Consult order Sodium Chloride (0.9 % Sodium Chloride Flush 3 Ml Syringe) 3 ml IVFLUSH QSHIFT [facility] Last Admin: 06/04/21 09:02 Dose: 3 ml Documented by: HAYDEN Labs CBC & Chem 7: 06/02/21 06:06 06/04/21 05:51 Labs: Laboratory Results - last 24 hr 06/04/21 05:51 Anion Gap 10 L Estim Creat Clear Calc 93.8 Estimated GFR > 60 Random Glucose 83 Calcium 7.9 L Microbiology Microbiology Results: Microbiology 06/01/21 10:06 Blood Culture - Preliminary Blood - Venous No growth after 48 hours. 06/01/21 09:54 Blood Culture - Preliminary Blood - Venous No growth after 48 hours. 06/01/21 14:45 Gram Stain - Final Peritoneum Routine Culture - Final Procedures Date of Service Date of Service: 06/04/21 Progress Note: A&P Assessment and plan (1) Diverticulitis of colon with perforation: Status: Acute (2) COVID-19: Status: Acute Assessment and Plan: 56-year-old female patient presenting with sigmoid diverticulitis with perforation status post Shayy procedure. She is tolerating a clear liquid in started passing liquid stool from her ostomy. Abdomen is soft incisional tenderness. The incision remains clean and intact. ALESIA is producing serosanguineous output. Plan to advance diet to a low residue/soft diet. Patient was encouraged to get out of bed and ambulate in her room. Should also continue incentive spirometry every hour while awake. Fall Risk Details Current Medications: Current Medications Bupropion HCl (Bupropion Hcl Xl 300 Mg Tab.Er.24h) 300 mg PO BEDTIME [facility] Last Admin: 06/03/21 19:19 Dose: 300 mg Documented by: Heparin Sodium (Porcine) (Heparin Sodium,Porcine 5,000 Unit/Ml Vial) 5,000 unit SUBCUT Q12H [facility] Last Admin: 06/04/21 09:01 Dose: 5,000 unit Documented by: Lactated Ringer's (Lr) 1,000 mls @ 100 mls/hr IVCONT .Q10H [facility] Last Admin: 06/04/21 10:05 Dose: 100 mls/hr Documented by: Promethazine HCl 12.5 mg/ (Sodium Chloride) 50.5 mls @ 202 mls/hr IV ONCE PRN PRN Reason: Nausea and Vomiting Piperacillin Sod/Tazobactam (Sod 3.375 gm/ Sodium Chloride) 50 mls @ 100 mls/hr IV Q6H [facility] Last Infusion: 06/04/21 10:21 Dose: Infused Documented by: Ketorolac Tromethamine (Ketorolac Tromethamine 30 Mg/Ml Vial) 15 mg IVPUSH Q6H [facility] Last Admin: 06/04/21 09:01 Dose: 15 mg Documented by: Morphine Sulfate (Morphine Sulfate 4 Mg/Ml Cartridge) 3 mg IVPUSH Q3H PRN; Protocol PRN Reason: Pain, Severe (Pain Scale 7-10) Last Admin: 06/02/21 13:51 Dose: 3 mg Documented by: Ondansetron HCl (Ondansetron Hcl 4 Mg/2 Ml Vial) 4 mg IVPUSH Q8H PRN PRN Reason: Nausea Oxycodone HCl (Oxycodone Hcl Immed Release 5 Mg Tablet) 5 mg PO Q4H PRN PRN Reason: Pain, Moderate (Pain Scale 4-6 Last Admin: 06/04/21 00:24 Dose: 5 mg Documented by: Oxycodone HCl (Oxycodone Hcl Immed Release 5 Mg Tablet) 10 mg PO Q4H PRN PRN Reason: Pain, Severe (Pain Scale 7-10) Last Admin: 06/02/21 21:25 Dose: 10 mg Documented by: Pharmacy Consult (Consult Rx Perform Med Rec) 1 each MISCELLANE ONCE PRN PRN Reason: Consult order Sodium Chloride (0.9 % Sodium Chloride Flush 3 Ml Syringe) 3 ml IVFLUSH [facility] Last Admin: 06/04/21 09:02 Dose: 3 ml Documented by: Time Spent With Patient Time: Total time spent is greater than 50% in coordination of care (as documented) at patient's floor/unit and/or counseling patient: Time with patient: 15 - 24 minutes Quality Stroke Does the patient have a stroke diagnosis?: No VTE Prior VTE?: No VTE Risk Level:: Medical - moderate - high VTE Device Contraindication: N/A - Device Ordered VTE Drug Contraindication: N/A - Med Ordered
[2021-06-04 11:25] VITALS: BP 139/73; PULSE 74; RESP 18; TEMP 37; O2SAT 97
[2021-06-04 15:48] VITALS: BP 127/75; PULSE 82; RESP 18; TEMP 37.3; O2SAT 97
[2021-06-04 20:00] VITALS: BP 142/82; PULSE 77; RESP 18; TEMP 37.2; O2SAT 97
[2021-06-04] MEDS: buPROPion HCl XL 300 MG TAB.ER.24H PO (20:33)
[2021-06-04 23:56] VITALS: BP 132/66; PULSE 80; RESP 18; TEMP 37; O2SAT 98
[2021-06-05] MEDS: Piperacillin Sodium/Tazobactam 3.375 GM in 0.9 % Sodium Chloride 50 ML IV ×4 (03:16→21:03)
[2021-06-05] MEDS: Ketorolac Tromethamine 30 MG/ML VIAL 15 MG IVPUSH ×4 (03:16→21:03)
[2021-06-05 03:52] VITALS: BP 115/66; PULSE 76; RESP 17; TEMP 37.2; O2SAT 96
[2021-06-05 08:00] VITALS: BP 131/78; PULSE 85; RESP 18; TEMP 36.7; O2SAT 98
[2021-06-05] MEDS: Heparin Sodium,Porcine 5,000 UNIT/ML VIAL 5000 UNIT SUBCUT ×2 (08:52→21:03)
[2021-06-05] MEDS: 0.9 % Sodium Chloride Flush 3 ML SYRINGE IVFLUSH ×3 (08:52→21:03)
--- NOTE | 2021-06-05 11:39 | PM.PNGS ---
Subjective Subjective Date of Service: 06/05/21 Interval history: The patient was able to tolerate some solid food yesterday although not much of an appetite. Denies nausea or vomiting. Abdominal pain mainly in the incision area. Ostomy is producing liquid brown stool. Physical Exam Vital Signs: Vital Signs: Last Vital Signs Temp 98.1 F 06/05/21 08:00 Pulse 85 06/05/21 08:00 Resp 18 06/05/21 08:00 BP 131/78 06/05/21 08:00 Pulse Ox 98 06/05/21 08:00 BMI result Body Mass Index 21.2 Const: General: no acute distress Orientation/consciousness: patient oriented x3 Resp: Other: Able to inspire 2500 mL of air with the incentive spirometer. Effort & Inspection: normal respiratory effort, no audible wheezes, no cough and no respiratory distress GI: Other: Soft, midline incision is clean, dry, and intact without erythema but small amount of ecchymosis. Ostomy is patent and functioning properly. ALESIA drain with serosanguineous discharge, approximately 35 cc last 24 hours. Neuro: General: patient oriented x3 Extrem: General: No edema Objective Data Active Medications Bupropion HCl (Bupropion Hcl Xl 300 Mg Tab.Er.24h) 300 mg PO BEDTIME [facility] Last Admin: 06/04/21 20:33 Dose: 300 mg Documented by: CELIO Heparin Sodium (Porcine) (Heparin Sodium,Porcine 5,000 Unit/Ml Vial) 5,000 unit SUBCUT Q12H [facility] Last Admin: 06/05/21 08:52 Dose: 5,000 unit Documented by: ENA Promethazine HCl 12.5 mg/ (Sodium Chloride) 50.5 mls @ 202 mls/hr IV ONCE PRN PRN Reason: Nausea and Vomiting Piperacillin Sod/Tazobactam (Sod 3.375 gm/ Sodium Chloride) 50 mls @ 100 mls/hr IV Q6H [facility] Last Admin: 06/05/21 08:52 Dose: 100 mls/hr Documented by: ENA Ketorolac Tromethamine (Ketorolac Tromethamine 30 Mg/Ml Vial) 15 mg IVPUSH Q6H [facility] Last Admin: 06/05/21 08:52 Dose: 15 mg Documented by: ENA Morphine Sulfate (Morphine Sulfate 4 Mg/Ml Cartridge) 3 mg IVPUSH Q3H PRN; Protocol PRN Reason: Pain, Severe (Pain Scale 7-10) Last Admin: 06/02/21 13:51 Dose: 3 mg Documented by: BETH Ondansetron HCl (Ondansetron Hcl 4 Mg/2 Ml Vial) 4 mg IVPUSH Q8H PRN PRN Reason: Nausea Oxycodone HCl (Oxycodone Hcl Immed Release 5 Mg Tablet) 5 mg PO Q4H PRN PRN Reason: Pain, Moderate (Pain Scale 4-6 Last Admin: 06/04/21 00:24 Dose: 5 mg Documented by: MICHELLE Oxycodone HCl (Oxycodone Hcl Immed Release 5 Mg Tablet) 10 mg PO Q4H PRN PRN Reason: Pain, Severe (Pain Scale 7-10) Last Admin: 06/02/21 21:25 Dose: 10 mg Documented by: RAYMOND Pharmacy Consult (Consult Rx Perform Med Rec) 1 each MISCELLANE ONCE PRN PRN Reason: Consult order Sodium Chloride (0.9 % Sodium Chloride Flush 3 Ml Syringe) [facility] Last Admin: 06/05/21 08:52 Dose: 3 ml Documented by: MEREDITH Labs CBC & Chem 7: 06/02/21 06:06 06/04/21 05:51 Procedures Date of Service Date of Service: 06/05/21 Progress Note: A&P Assessment and plan (1) Diverticulitis of colon with perforation: Status: Acute (2) Status post Shayy's procedure: Status: Acute Assessment and Plan: 56-year-old female patient status post Shayy procedure for perforated sigmoid diverticulitis. Patient is feeling improved and tolerating some solid food although her appetite is still fairly low. Will continue to monitor ALESIA and ostomy output. I encouraged out of bed and ambulation. She was doing great with the incentive spirometry. No respiratory/COVID symptoms at this time. Will need instructions on ostomy care prior to discharge. Visiting nurses anticipated as well. Fall Risk Details Current Medications: Current Medications Bupropion HCl (Bupropion Hcl Xl 300 Mg Tab.Er.24h) 300 mg PO BEDTIME [facility] Last Admin: 06/04/21 20:33 Dose: 300 mg Documented by: Heparin Sodium (Porcine) (Heparin Sodium,Porcine 5,000 Unit/Ml Vial) 5,000 unit SUBCUT Q12H [facility] Last Admin: 06/05/21 08:52 Dose: 5,000 unit Documented by: Promethazine HCl 12.5 mg/ (Sodium Chloride) 50.5 mls @ 202 mls/hr IV ONCE PRN PRN Reason: Nausea and Vomiting Piperacillin Sod/Tazobactam (Sod 3.375 gm/ Sodium Chloride) 50 mls @ 100 mls/hr IV Q6H [facility] Last Admin: 06/05/21 08:52 Dose: 100 mls/hr Documented by: Ketorolac Tromethamine (Ketorolac Tromethamine 30 Mg/Ml Vial) 15 mg IVPUSH Q6H [facility] Last Admin: 06/05/21 08:52 Dose: 15 mg Documented by: Morphine Sulfate (Morphine Sulfate 4 Mg/Ml Cartridge) 3 mg IVPUSH Q3H PRN; Protocol PRN Reason: Pain, Severe (Pain Scale 7-10) Last Admin: 06/02/21 13:51 Dose: 3 mg Documented by: Ondansetron HCl (Ondansetron Hcl 4 Mg/2 Ml Vial) 4 mg IVPUSH Q8H PRN PRN Reason: Nausea Oxycodone HCl (Oxycodone Hcl Immed Release 5 Mg Tablet) 5 mg PO Q4H PRN PRN Reason: Pain, Moderate (Pain Scale 4-6 Last Admin: 06/04/21 00:24 Dose: 5 mg Documented by: Oxycodone HCl (Oxycodone Hcl Immed Release 5 Mg Tablet) 10 mg PO Q4H PRN PRN Reason: Pain, Severe (Pain Scale 7-10) Last Admin: 06/02/21 21:25 Dose: 10 mg Documented by: Pharmacy Consult (Consult Rx Perform Med Rec) 1 each MISCELLANE ONCE PRN PRN Reason: Consult order Sodium Chloride (0.9 % Sodium Chloride Flush 3 Ml Syringe) 3 ml IVFLUSH QSHIFT [facility] Last Admin: 06/05/21 08:52 Dose: 3 ml Documented by: Time Spent With Patient Time: Total time spent is greater than 50% in coordination of care (as documented) at patient's floor/unit and/or counseling patient: Time with patient: 15 - 24 minutes Quality Stroke Does the patient have a stroke diagnosis?: No VTE Prior VTE?: No VTE Risk Level:: Medical - moderate - high VTE Device Contraindication: N/A - Device Ordered VTE Drug Contraindication: N/A - Med Ordered
[2021-06-05 16:00] VITALS: BP 142/89; PULSE 89; RESP 18; TEMP 37.4; O2SAT 99
[2021-06-05 20:00] VITALS: BP 142/63; PULSE 79; RESP 18; TEMP 37.1; O2SAT 98
[2021-06-05] MEDS: buPROPion HCl XL 300 MG TAB.ER.24H PO (21:03)
[2021-06-05 23:43] VITALS: BP 124/74; PULSE 85; RESP 18; TEMP 36.1; O2SAT 96
[2021-06-06] MEDS: Ketorolac Tromethamine 30 MG/ML VIAL 15 MG IVPUSH ×4 (03:15→20:06)
[2021-06-06] MEDS: Piperacillin Sodium/Tazobactam 3.375 GM in 0.9 % Sodium Chloride 50 ML IV ×4 (03:15→20:06)
[2021-06-06 08:00] VITALS: BP 128/76; PULSE 91; RESP 20; TEMP 37.4; O2SAT 95
--- NOTE | 2021-06-06 08:54 | PM.PNGS ---
Subjective Subjective Date of Service: 06/06/21 Interval history: Patient feels well today decreased abdominal pain. Ostomy reducing liquid stool and gas. Denies any new complaints. Would like to take a shower. Physical Exam Vital Signs: Vital Signs: Last Vital Signs Temp 99.4 F 06/06/21 08:00 Pulse 91 06/06/21 08:00 Resp 20 06/06/21 08:00 BP 128/76 06/06/21 08:00 Pulse Ox 95 06/06/21 08:00 BMI result Body Mass Index 21.2 Const: General: cooperative and no acute distress Nutritional Appearance: well nourished Orientation/consciousness: patient oriented x3 Limitations: no limitations Resp: Other: Breathing comfortably on room air, no shortness of breath GI: Other: Wounds clean, dry, and intact. Shimon-Carter with minimal discharge. ALESIA drain was removed today and dry sterile dressing applied. Ostomy is patent and functioning well. Skin: Other: Warm, dry, no rash Neuro: General: patient oriented x3 Extrem: Other: No edema Objective Data Active Medications Bupropion HCl (Bupropion Hcl Xl 300 Mg Tab.Er.24h) 300 mg PO BEDTIME [facility] Last Admin: 06/05/21 21:03 Dose: 300 mg Documented by: CELIO Heparin Sodium (Porcine) (Heparin Sodium,Porcine 5,000 Unit/Ml Vial) 5,000 unit SUBCUT Q12H [facility] Last Admin: 06/05/21 21:03 Dose: 5,000 unit Documented by: CELIO Promethazine HCl 12.5 mg/ (Sodium Chloride) 50.5 mls @ 202 mls/hr IV ONCE PRN PRN Reason: Nausea and Vomiting Piperacillin Sod/Tazobactam (Sod 3.375 gm/ Sodium Chloride) 50 mls @ 100 mls/hr IV Q6H [facility] Last Infusion: 06/06/21 04:00 Dose: 0 mls/hr Documented by: CELIO Ketorolac Tromethamine (Ketorolac Tromethamine 30 Mg/Ml Vial) 15 mg IVPUSH Q6H [facility] Last Admin: 06/06/21 03:15 Dose: 15 mg Documented by: CELIO Morphine Sulfate (Morphine Sulfate 4 Mg/Ml Cartridge) 3 mg IVPUSH Q3H PRN; Protocol PRN Reason: Pain, Severe (Pain Scale 7-10) Last Admin: 06/02/21 13:51 Dose: 3 mg Documented by: BETH Ondansetron HCl (Ondansetron Hcl 4 Mg/2 Ml Vial) 4 mg IVPUSH Q8H PRN PRN Reason: Nausea Oxycodone HCl (Oxycodone Hcl Immed Release 5 Mg Tablet) 5 mg PO Q4H PRN PRN Reason: Pain, Moderate (Pain Scale 4-6 Last Admin: 06/04/21 00:24 Dose: 5 mg Documented by: MICHELLE Oxycodone HCl (Oxycodone Hcl Immed Release 5 Mg Tablet) 10 mg PO Q4H PRN PRN Reason: Pain, Severe (Pain Scale 7-10) Last Admin: 06/02/21 21:25 Dose: 10 mg Documented by: RAYMOND Pharmacy Consult (Consult Rx Perform Med Rec) 1 each MISCELLANE ONCE PRN PRN Reason: Consult order Sodium Chloride (0.9 % Sodium Chloride Flush 3 Ml Syringe) 3 ml IVFLUSH QSHIFT [facility] Last Admin: 06/05/21 21:03 Dose: 3 ml Documented by: CELIO Labs CBC & Chem 7: 06/02/21 06:06 06/04/21 05:51 Procedures Date of Service Date of Service: 06/06/21 Progress Note: A&P Assessment and plan (1) Status post Shayy's procedure: Status: Acute (2) Diverticulitis of colon with perforation: Status: Acute Assessment and Plan: Patient continues to improve following Shayy procedure for perforated sigmoid diverticulitis. Her wounds are clean and intact. Ostomy is functioning well. ALESIA producing minimal serous fluid there for the tube was removed today. The patient may shower today. She will need instruction on ostomy care. Possible discharge in a.m.. Fall Risk Details Current Medications: Current Medications Bupropion HCl (Bupropion Hcl Xl 300 Mg Tab.Er.24h) 300 mg PO BEDTIME [facility] Last Admin: 06/05/21 21:03 Dose: 300 mg Documented by: Heparin Sodium (Porcine) (Heparin Sodium,Porcine 5,000 Unit/Ml Vial) 5,000 unit SUBCUT Q12H [facility] Last Admin: 06/05/21 21:03 Dose: 5,000 unit Documented by: Promethazine HCl 12.5 mg/ (Sodium Chloride) 50.5 mls @ 202 mls/hr IV ONCE PRN PRN Reason: Nausea and Vomiting Piperacillin Sod/Tazobactam (Sod 3.375 gm/ Sodium Chloride) 50 mls @ 100 mls/hr IV Q6H [facility] Last Infusion: 06/06/21 04:00 Dose: Infused Documented by: Ketorolac Tromethamine (Ketorolac Tromethamine 30 Mg/Ml Vial) 15 mg IVPUSH Q6H [facility] Last Admin: 06/06/21 03:15 Dose: 15 mg Documented by: Morphine Sulfate (Morphine Sulfate 4 Mg/Ml Cartridge) 3 mg IVPUSH Q3H PRN; Protocol PRN Reason: Pain, Severe (Pain Scale 7-10) Last Admin: 06/02/21 13:51 Dose: 3 mg Documented by: Ondansetron HCl (Ondansetron Hcl 4 Mg/2 Ml Vial) 4 mg IVPUSH Q8H PRN PRN Reason: Nausea Oxycodone HCl (Oxycodone Hcl Immed Release 5 Mg Tablet) 5 mg PO Q4H PRN PRN Reason: Pain, Moderate (Pain Scale 4-6 Last Admin: 06/04/21 00:24 Dose: 5 mg Documented by: Oxycodone HCl (Oxycodone Hcl Immed Release 5 Mg Tablet) 10 mg PO Q4H PRN PRN Reason: Pain, Severe (Pain Scale 7-10) Last Admin: 06/02/21 21:25 Dose: 10 mg Documented by: Pharmacy Consult (Consult Rx Perform Med Rec) 1 each MISCELLANE ONCE PRN PRN Reason: Consult order Sodium Chloride (0.9 % Sodium Chloride Flush 3 Ml Syringe) 3 ml IVFLUSH QSHIFT [facility] Last Admin: 06/05/21 21:03 Dose: 3 ml Documented by: Time Spent With Patient Time: Total time spent is greater than 50% in coordination of care (as documented) at patient's floor/unit and/or counseling patient: Time with patient: 15 - 24 minutes Quality Stroke Does the patient have a stroke diagnosis?: No VTE Prior VTE?: No VTE Risk Level:: Medical - moderate - high VTE Device Contraindication: N/A - Device Ordered VTE Drug Contraindication: N/A - Med Ordered
[2021-06-06] MEDS: Heparin Sodium,Porcine 5,000 UNIT/ML VIAL 5000 UNIT SUBCUT ×2 (09:28→22:56)
[2021-06-06] MEDS: 0.9 % Sodium Chloride Flush 3 ML SYRINGE IVFLUSH ×3 (09:28→20:06)
[2021-06-06 12:00] VITALS: BP 134/75; PULSE 83; RESP 20; TEMP 37.3; O2SAT 99
[2021-06-06 15:59] VITALS: BP 125/80; PULSE 82; RESP 18; TEMP 36.9; O2SAT 98
[2021-06-06 19:16] VITALS: BP 124/62; PULSE 76; RESP 18; TEMP 37.1; O2SAT 100
[2021-06-06] MEDS: buPROPion HCl XL 300 MG TAB.ER.24H PO (20:06)
[2021-06-07] VITALS: BP 112/72; PULSE 90; RESP 18; TEMP 36.6; O2SAT 96
[2021-06-07] MEDS: Piperacillin Sodium/Tazobactam 3.375 GM in 0.9 % Sodium Chloride 50 ML IV ×2 (01:30→10:16)
[2021-06-07 03:41] VITALS: BP 120/68; PULSE 81; RESP 18; TEMP 37.1; O2SAT 98
[2021-06-07 07:56] VITALS: BP 134/75; PULSE 88; RESP 17; TEMP 37; O2SAT 97
--- NOTE | 2021-06-07 09:45 | P.PNGS_ITS ---
Subjective Subjective Date of Service: 06/07/21 Interval history: Feels better Pain on incisions much improved Tolerating diet Stoma functioning Physical Exam Vital Signs: Vital Signs: Last Vital Signs Temp 98.6 F 06/07/21 07:56 Pulse 88 06/07/21 07:56 Resp 17 06/07/21 07:56 BP 134/75 06/07/21 07:56 Pulse Ox 97 06/07/21 07:56 BMI result Body Mass Index 21.2 Const: General: comfortable and no acute distress Resp: Effort & Inspection: normal respiratory effort Cardio: Rhythm: regular rhythm GI: Other: Incision on the midline swell healed, stoma functioning well, ALEISA drain is out Palpation (GI): Soft to palpation, not firm and no guarding Objective Data Active Medications Bupropion HCl (Bupropion Hcl Xl 300 Mg Tab.Er.24h) 300 mg PO BEDTIME [facility] Last Admin: 06/06/21 20:06 Dose: 300 mg Documented by: QUINTON Heparin Sodium (Porcine) (Heparin Sodium,Porcine 5,000 Unit/Ml Vial) 5,000 unit SUBCUT Q12H [facility] Last Admin: 06/06/21 22:56 Dose: 5,000 unit Documented by: QUINTON Promethazine HCl 12.5 mg/ (Sodium Chloride) 50.5 mls @ 202 mls/hr IV ONCE PRN PRN Reason: Nausea and Vomiting Piperacillin Sod/Tazobactam (Sod 3.375 gm/ Sodium Chloride) 50 mls @ 100 mls/hr IV Q6H [facility] Last Infusion: 06/07/21 02:19 Dose: 0 mls/hr Documented by: QUINTON Ondansetron HCl (Ondansetron Hcl 4 Mg/2 Ml Vial) 4 mg IVPUSH Q8H PRN PRN Reason: Nausea Pharmacy Consult (Consult Rx Perform Med Rec) 1 each MISCELLANE ONCE PRN PRN Reason: Consult order Sodium Chloride (0.9 % Sodium Chloride Flush 3 Ml Syringe) 3 ml IVFLUSH QSHIFT [facility] Last Admin: 06/06/21 20:06 Dose: 3 ml Documented by: QUINTON Labs CBC & Chem 7: 06/02/21 06:06 06/04/21 05:51 Microbiology Microbiology Results: Microbiology 06/01/21 10:06 Blood Culture - Final Blood - Venous No growth after 5 days. 06/01/21 09:54 Blood Culture - Final Blood - Venous No growth after 5 days. Procedures Date of Service Date of Service: 06/07/21 Progress Note: A&P Assessment and plan (1) Diverticulitis of colon with perforation: Status: Acute Assessment and Plan: Status post Shayy's procedure. Good GI function. 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 Fall Risk Details Current Medications: Current Medications Bupropion HCl (Bupropion Hcl Xl 300 Mg Tab.Er.24h) 300 mg PO BEDTIME [facility] Last Admin: 06/06/21 20:06 Dose: 300 mg Documented by: Heparin Sodium (Porcine) (Heparin Sodium,Porcine 5,000 Unit/Ml Vial) 5,000 unit SUBCUT Q12H [facility] Last Admin: 06/06/21 22:56 Dose: 5,000 unit Documented by: Promethazine HCl 12.5 mg/ (Sodium Chloride) 50.5 mls @ 202 mls/hr IV ONCE PRN PRN Reason: Nausea and Vomiting Piperacillin Sod/Tazobactam (Sod 3.375 gm/ Sodium Chloride) 50 mls @ 100 mls/hr IV Q6H [facility] Last Infusion: 06/07/21 02:19 Dose: Infused Documented by: Ondansetron HCl (Ondansetron Hcl 4 Mg/2 Ml Vial) 4 mg IVPUSH Q8H PRN PRN Reason: Nausea Pharmacy Consult (Consult Rx Perform Med Rec) 1 each MISCELLANE ONCE PRN PRN Reason: Consult order Sodium Chloride (0.9 % Sodium Chloride Flush 3 Ml Syringe) 3 ml IVFLUSH QSHIFT [facility] Last Admin: 06/06/21 20:06 Dose: 3 ml Documented by: Time Spent With Patient Time: Total time spent is greater than 50% in coordination of care (as documented) at patient's floor/unit and/or counseling patient: Time with patient: 15 - 24 minutes Quality Stroke Does the patient have a stroke diagnosis?: No VTE Prior VTE?: No VTE Risk Level:: Medical - moderate - high VTE Device Contraindication: N/A - Device Ordered VTE Drug Contraindication: N/A - Med Ordered
[2021-06-07] MEDS: Heparin Sodium,Porcine 5,000 UNIT/ML VIAL 5000 UNIT SUBCUT (10:11)
[2021-06-07] MEDS: 0.9 % Sodium Chloride Flush 3 ML SYRINGE IVFLUSH (10:16)
[2021-06-07 11:23] VITALS: BP 104/70; PULSE 99; RESP 18; TEMP 37.6; O2SAT 98
--- NOTE | 2021-06-07 12:07 | PC.NURSE ---
removed ostomy appliance and showed patient how to cut hole (to the 37.5 [place] line), cleanse skin around, applied skin prep and place pouch back on. patient states she understands and could replicate procedure.
--- NOTE | 2021-06-07 12:19 | W.MHC.F2F ---
Service Date Service Date: 06/07/21 Encounter Date of encounter: 06/07/21 Reasons for Services Signs and symptoms assessed: has colostomy after laparotomy and sigmoid resection for perforated diverticulitis Reason for group home: wound care and postoperative assessment and/or care Homebound: Leaving the home is medically contraindicated at this time without the asist of a device and/or another person due th the listed conditions above and below. Certification: Based on the above findings, I certify that this patient is confined to the home and needs intermittent group home care, physical therapy and/or speech therapy, or continues to need occupational therapy. The patient is under my care, and I have initiated the establishment of the plan of care. The patient will be followed by a physician who will periodically review the plan of care.
--- NOTE | 2021-06-07 13:01 | MHC.CM.PN ---
Female 56 Covid+ Perf Divertic s/p surgery w ostomy. She is discharged home today with Family. [facility] will provide homecare services. Discharhe info + F2F has been sent. BLS is booked as a WILL call.
--- NOTE | 2021-06-07 13:54 | PM.DS ---
DS: Providers Provider Date of Service: 06/07/21 Date of admission: 06/01/21 12:11 Primary care physician: Arina Joe MD Attending physician on admission: Gibran Wilson DS: Diagnosis Discharge Diagnosis (1) Diverticulitis of colon with perforation: Status: Acute DS: Summary Hospital Course Hospital Course: BRIEF HPI: Sherie Llanes is a 56 year old female? with history of diverticulitis, came to the emergency room this morning because of lower abdominal pain.? She states that this has been going on for about 3 days now.? This seemed to be worsening however.? She denies any diarrhea constipation.? She denies GI bleed.? She does admit to having chills at home.?Review of her records actually show that she was seen in the ED last March, for acute diverticulitis of the sigmoid colon.? She admitted to the hospital at that time. She says she had a colonoscopy in the past and this was unremarkable. She says she 1st an episode of acute diverticulitis about 2-3 years ago.? She says that this is probably her 3rd episode as far she can recall. CAT scan showed changes in the sigmoid consistent with diverticulitis along with a small abscess with multiple foci of air in the upper abdomen? consistent with perforation.? She was significantly tender in lower abdomen with some guarding. HOSPITAL COURSE: ?She was admitted to the surgical service for further treatment of the perforated diverticulitis. ?In view of her significant tenderness and the multiple locules of air in the upper abdomen, it was recommended to proceed with laparotomy, sigmoid resection and likely stoma.? She agreed to proceed. She was added onto the OR schedule emergently. She was started on IV zosyn, IVF and kept NPO. The patient was also COVID positive, asymptomatic and proper precautions were taken. On 06/01/21, a laparotomy, sigmoid resection, end colostomy was performed by Dr. Wilson without complication. The distal sigmoid showed significant inflammatory changes with marked edema, erythema, fibrinous exudate as well as murky fluid surrounding this. A ALESIA drain was placed intraoperatively. The patient tolerated the procedure well, was recovered and transferred to [facility] (covid precautions floor). She had an uncomplicated recovery course. She was doing well on POD #1. Her pain control was adequate with PRN IV/PO analgesics. She was tolerating clear liquids. Her nguyen was removed. She was ambulated. She began passing flatus via her ostomy on POD #2. Her abdomen remained benign with a clean incision and viable appearing ostomy. She was advanced to solid low residue diet on POD #3. Her ostomy began producing both flatus and stool. Her activity was increased. Her pain remained controlled on PO analgesics over the next few post operative days. Her ALESIA drain had scanty serous output and was removed. COlostomy education was performed. On the day of discharge, she was tolerating a solid diet with good pain control with a clean incision and well functioning colostomy. She completed 6 days of IV zosyn and was discharged to home with VNA services on a PO course of Augmentin BID. She is to follow up in the office with Dr. Wilson in 2 weeks for staple removal. Status at Discharge Functional status at discharge: independent ambulation Overall status at discharge: patient is progressing back to baseline Time Spent with Patient Time attestation: Total time spent providing and/or coordinating discharge services: Discharge coordination time: Greater than 30 minutes Quality: Stroke Does the patient have a stroke diagnosis?: No Physical Exam Vital Signs: Vital Signs: Last Vital Signs Temp 99.6 F 01/03/22 11:23 Pulse 99 /03/22 11:23 Resp 18 /03/22 11:23 BP 104/70 /03/22 11:23 Pulse Ox 98 /03/22 11:23 BMI result Body Mass Index 21.2 Const: General: comfortable, no acute distress and alert Orientation/consciousness: patient oriented x3 Resp: Effort & Inspection: normal respiratory effort GI: Other: ostomy pink, appliance intact Inspection: No distended and Yes incision (clean) Palpation (GI): Soft to palpation and no guarding Skin: General skin exam: no rashes or lesions noted Neuro: General: patient oriented x3 Extrem: General: Yes no clubbing, cyanosis or edema DS: Data Data Completed and Pending Completed studies during hospitalization [Text1]: 06/01/21 15:17 Surgical [PTH] Routine Colon, sigmoid, segmental resection:? Diverticular-associated segmental colitis. Discharge Plan Discharge Patient Disposition: Home Health Service Discharge Diagnosis: perforated diverticulitis s/p noel procedure Referrals: Ross IRIZARRYA [Outside] - 1 Week Gibran Wilson MD [Physician] - 2 Weeks Arina Joe MD [Primary Care Provider] - 1 Week Discharge Medications: New amoxicillin-pot clavulanate [Augmentin] 500-125 mg tablet 1 tab PO BID Qty: 10 RF: 0 (DME) colostomy bag, non-sterile 1 1/2 (12 ) misc See Rx Instructions .Route Qty: 10 RF: 2 Continued loratadine 10 mg Tablet 10 mg PO DAILY RF: 0 bupropion HCl 300 mg tablet extended release 24 hr 1 tab PO BEDTIME RF: 0 bupropion HCl 150 mg tablet extended release 24 hr 1 tab PO BEDTIME RF: 0 Discharge Orders: Discharge Order (Routine); Ordered 06/07/21 Ordered By: Gibran Wilson Diet: advance to usual diet Activity on Discharge: No heavy lifting Stand Alone Forms: Patient Portal Discharge page Activity Restrictions/Additional Instructions: If the incision area is tender, you may apply an ice pack for short intervals (No more than 20 minutes on, followed by at least 20 minutes off). Do not apply heat. Do not use creams, lotions, or topical antibiotics unless instructed to do so by your surgeon. These can cause infection or allergic reaction. Ok to shower. You have xavier closing your incision and these will be removed approximately 10-14 days after surgery. colostomy appliance: COLOPLAST #[id number] apply to colostomy q3-4 days and PRN NO HEAVY LIFTING (>10lbs). Follow up in office. ([phone]) Call Your Doctor If: -Your temperature exceeds 101.5? F -You experience excessive pain or swelling -You have an unexpected reaction to medication -You have excessive bleeding -You experience continued vomiting/nausea -Your incision begins to separate -Your incision shows signs of infection such as increased redness, swelling, excessive pain, drainage (light blood or clear fluid is normal) or heat Care Plan Goals: Return to baseline health and gradual return to activity following recovery period. Health Concerns: Perforated diverticulitis Plan of Treatment: S/p noel procedure Home with VNA PO abx F/u in office with Dr. Wilson Assessment: Doing well post op
[2021-06-07] MEDS: Acetaminophen 325 MG TABLET 650 MG PO (15:14)
--- NOTE | 2021-06-07 15:35 | PM.EVENT ---
Event Note Date of Service: 06/07/21 Event Note: Patient been doing well Was scheduled to be discharged this afternoon with visiting nurse ORQUIDEA however had backed out and would not be able to see her industrial sales manager is still trying to find says for the patient help her with stoma care at home Patient therefore is not to go home today as she is not comfortable with going home without visiting nurse services
[2021-06-07 15:45] VITALS: BP 131/80; PULSE 96; RESP 18; TEMP 36.6; O2SAT 99
== END 2021-06-07 17:00 | disposition home health service (06) | DRG 231 ==
LOC: HO.ED 12:25 → HO.EDOVER 12:40 → HO.IMC 17:34
PROVIDERS: Admitting Provider Surgery; Emergency Provider Emergency Medicine; PCP Internal Medicine; Visit Provider Surgery
PROC: 0DBN0ZZ Excision of Sigmoid Colon, Open Approach (ICD-10-PCS; CPT 49000; principal; 2021-06-01 14:30)
DX: K57.20 Diverticulitis of large intestine with perforation and abscess without bleeding (principal); U07.1 COVID-19; R55 Syncope and collapse; Z91.040 Latex allergy status; Z79.899 Other long term (current) drug therapy
CPT/HCPCS: 36415; 74177; 80048; 80076; 81001; 81003; 83605; 83690; 84484; 85025; 85027; 87040; 87071; 87205; 87635; 88307; 93005; 96361; 96365; 96375; 99024; 99285; J0131; J1100; J1170; J1885; J2250; J2270; J2370; J2405; J2543; J2550; J3010; Q9967

== ENCOUNTER 2021-06-09 09:07 | Emergency (ER) | payer OTHER, SELFPAY ==
[2021-06-09 09:43] VITALS: BP 120/80; BP 125/93; PULSE 92; RESP 16; TEMP 37.1; O2SAT 100; O2SAT 98; BMI 21.2
--- NOTE | 2021-06-09 10:35 | PM.CNGS ---
History of Present Illness Consult details Consult date: 06/09/21 Narrative: 56-year-old female who is known to me, here in the ER because of redness and drainage from her incision. She underwent emergency laparotomy, and Shayy's procedure for perforated diverticulitis last June 01, 2021. She was discharged from the hospital last June 07, 2020. She says she got out of bed this morning and notice bloody drainage from her incision along with some redness. She otherwise says that her stoma has been functioning well. She had tested positive for COVID prior to admission last week but has remained asymptomatic. Review of Systems Constitutional: Constitutional: Reports chills and Denies fever(s) Cardiovascular: Cardiovascular: Denies chest pain, Denies dyspnea and Denies dyspnea on exertion Respiratory: Respiratory: Denies cough, Denies dyspnea and Denies dyspnea on exertion Gastrointestinal: Gastrointestinal: Denies hematochezia and Denies change in bowel habits Genitourinary: Genitourinary: Denies hematuria Musculoskeletal: Musculoskeletal: Denies back pain and Denies limited range of motion Neurologic: Denies focal weakness and Denies convulsions Psychiatric: Psychiatric: Denies depression and Denies mood swings PMFSH Past Medical History Medical History Depression Diverticulitis Thyroid disease Surgical History Surgical History H/O hernia repair S/P colostomy Status post Shayy's procedure Social History Social History Household Members: Family Housing: House Do you presently have visiting nurse or other home services: No Patient Tobacco Use Status: Never used Tobacco Advance Directives: No Advance Directives Information Provided: No Patient : No service: No Current occupational status: employed Meds Allergies Allergy/AdvReac Type Severity Reaction Status Date / Time latex [LATEX] Allergy Intermediate HIVES Verified 03/16/21 08:57 peanut [PEANUT] AdvReac Mild COLD Verified 03/16/21 08:57 SORES peanuts Allergy Unknown hives Uncoded 05/23/16 00:00 Home Medications Medication Instructions Recorded Confirmed Last Taken Type bupropion HCl 150 mg 24 hr tablet, 1 tab PO BEDTIME 06/01/21 06/01/21 Unknown History extended release bupropion HCl 300 mg 24 hr tablet, 1 tab PO BEDTIME 06/01/21 06/01/21 Unknown History extended release loratadine 10 mg tablet 10 mg PO DAILY 06/01/21 06/01/21 Unknown History Physical Exam Vital Signs: Vital Signs: Last Vital Signs Temp 98.8 F 06/09/21 09:43 Pulse 92 06/09/21 09:43 Resp 16 06/09/21 09:43 BP 125/93 H 06/09/21 09:43 Pulse Ox 98 06/09/21 09:43 BMI result Body Mass Index 21.2 Const: Other: Appears anxious General: comfortable and no acute distress Resp: Effort & Inspection: normal respiratory effort GI: Other: Stoma functioning well, some redness around the midline incision mostly on the lower part, no fluctuance, scanty serosanguineous bloody drainage Results Labs Labs: All other labs normal. Assessment and Plan (1) Status post Shayy's procedure: Status: Acute She has some redness on her incision at lower aspect. I therefore released two skin xavier and probed the incision with a Q-tip. Thin serosanguineous fluid was drained. There was no pus. I applied dry gauze dressings. I instructed her to do dressing changes 2 to 3 times a day or as needed. She is still on oral antibiotics with Augmentin from postop so she is to continue this. I will see her again in the office next week. Overall, she appears to be doing very well postoperatively. Procedures Date of Service Date of Service: 06/09/21
--- NOTE | 2021-06-09 10:45 | ED.RECABL ---
HPI - Recheck/Abnormal Lab/Rx General Chief Complaint: General Medical Stated Complaint: BLEEDING FROM SURG SITE,+COVID 11 DAYS AGO Time Seen by Provider: 06/09/21 09:25 Source: patient and EMS Mode of arrival: EMS Limitations: no limitations History of Present Illness HPI narrative: 56-year-old female with a past medical history of diverticulitis who is now status post emergent Laparotomy and Shayy's procedure for perforated diverticulitis last 06/01/[address] Wilson. She was discharged from the hospital on 06/07/2020 and she reports she was feeling fine up until yesterday when she woke up she noticed some mild redness/swelling and bloody drainage from her incision site. Therefore she came here for further evaluation treatment. She denies any fevers, chills, purulent drainage or any other symptoms. She is currently on antibiotics prescribed by Dr. Wilson and is taking as prescribed. She reports that she does not have any pain medications she does not believe she was ever prescribed any pain medications. MD complaint: wound re-check Initial visit (ago): day(s) (8) Initial visit for: other (See above) Returns today for: wound recheck and request for prescription Symptoms since prior visit: worsening pain, worsening swelling, worsening redness and worsening discharge Associated symptoms: none Treatments prior to arrival: other (See above) Related Data Home Medications Medication Instructions Recorded Confirmed bupropion HCl 150 mg 24 hr tablet, 1 tab PO BEDTIME 06/01/21 06/01/21 extended release bupropion HCl 300 mg 24 hr tablet, 1 tab PO BEDTIME 06/01/21 06/01/21 extended release loratadine 10 mg tablet 10 mg PO DAILY 06/01/21 06/01/21 Previous Rx's Medication Instructions Recorded amoxicillin 500 mg-potassium 1 tab PO BID #10 tab 06/07/21 clavulanate 125 mg tablet (Augmentin) colostomy bag, non-sterile #20 ea 06/08/21 skin protectants, misc. (No Sting See Rx Instructions TOPICAL 06/08/21 Barrier Film) .COMPLEX #30 ea oxycodone 5 mg tablet 5 mg PO Q6H PRN #30 tab 06/09/21 Allergies Allergy/AdvReac Type Severity Reaction Status Date / Time latex [LATEX] Allergy Intermediate HIVES Verified 03/16/21 08:57 peanut [PEANUT] AdvReac Mild COLD Verified 03/16/21 08:57 SORES peanuts Allergy Unknown hives Uncoded 05/23/16 00:00 Review of Systems Review of Systems: Constitutional : Denies history of same, Denies any other sites involved, Denies IV drug use, Denies history of MRSA, Denies swollen glands, Denies injury, Denies Fever, Denies Chills, + Sig Pain, Denies Systemic symptoms Cardiovascular : No Chest Pain, No SOB Respiratory : No Dyspnea Gastrointestinal : No abdominal pain Musculoskeletal : No Joint Swelling Skin : + skin wound with mild surrounding erythema/bloody drainage, No skin abscess, No Foreign bodies, No spreading rash, Denies bites Neuro : No Weakness, No Numbness/tingling Psych : No SI/HI/thoughts of self injury Yes all other systems are reviewed and are negative [facility] Past Medical History Attestation statement: The following information was validated with the patient. Medical History Depression Diverticulitis Thyroid disease Surgical History H/O hernia repair S/P colostomy Status post Shayy's procedure Social History Social History Household Members: Family Housing: House Do you presently have visiting nurse or other home services: No Patient Tobacco Use Status: Never used Tobacco Advance Directives: No Advance Directives Information Provided: No Patient : No service: No Current occupational status: employed Physical Exam Vital Signs: Vital Signs: Last Vital Signs Temp 98.8 F 06/09/21 09:43 Pulse 92 06/09/21 09:43 Resp 16 06/09/21 09:43 BP 125/93 H 06/09/21 09:43 Pulse Ox 98 06/09/21 09:43 BMI result Body Mass Index 21.2 vital signs have been reviewed as normal and appeared to be correct. Blood pressure normal. Heart rate normal. Respiration rate normal. Temperature normal. Oxygen saturation normal. Appearance: Alert. Oriented X3. No acute distress. Head: Normal external exam. Normocephalic. Eyes: PERRLA. EOMI. Conjunctiva and sclera normal. Eyelids normal. ENT: Pharynx normal. Uvula midline. Moist mucous membranes. Neck: Normal inspection. Neck supple. FROM. No adenopathy. No meningeal signs. CVS: Normal heart rate and rhythm. Heart sound normal. No murmurs noted. Pulses normal throughout. Respiratory: No respiratory distress. Painless inspiration. Breath sounds normal. No wheezes/rales/rhonchi noted. Chest nontender. No accessory muscle usage noted or decreased air movement noted. Abdomen: See picture below stoma in place and functioning well. At the midline incision mostly in the lower part patient has mild redness/tenderness all patient and bloody drainage. No purulent drainage is noted on my exam. The rest of the abdomen is soft and nontender. Nondistended. No rigidity. Bowel sounds normal in all 4 quadrants. No distention noted. No organomegaly noted. No visible injury noted. No rebound tenderness. Negative Rovsing sign. Negative obturator's sign. Negative psoas sign. Negative Jasso sign. Back: No CVA tenderness. Full range of motion noted. Skin: Skin warm and dry. Normal skin color. Normal skin turgor. No rashes/lesions/lacerations noted. Extremities: Extremities exhibit normal range of motion. Extremities nontender. Neuro: Oriented X 3. No motor deficit. No sensory deficit. Reflexes normal. Normal steady gait. Course Course Course Narrative: 56-year-old female with a past medical history of diverticulitis who is now status post emergent Laparotomy and Shayy's procedure for perforated diverticulitis last 06/01/[address] Wilson. She was discharged from the hospital on 06/07/2020 and she reports she was feeling fine up until yesterday when she woke up she noticed some mild redness/swelling and bloody drainage from her incision site. Therefore she came here for further evaluation treatment. She denies any fevers, chills, purulent drainage or any other symptoms. She is currently on antibiotics prescribed by Dr. Wilson and is taking as prescribed. She reports that she does not have any pain medications she does not believe she was ever prescribed any pain medications. Dr. Wilson came and evaluated the patient and he removed 2 skin xavier and probed the incision with a Q-tip and it was only thin serosanguineous fluid was drained no purulent drainage was noted. Therefore he apply dry gauzes and he instructed her to change the dressing 2 to 3 times a day or as needed. He also instructed her to continue taking her Augmentin prescribed postop period and I will discharge her with pain meds per Dr. Wilson order. Along with instructions to follow-up as an outpatient basis as scheduled. Patient understands agrees with this plan. MDM - Recheck/Abnormal Lab/Rx Medical Records Attestation: I reviewed the patient's medical records. Discharge Plan Discharge Clinical Impression: Status post Shayy's procedure Patient Disposition: Home, Self-Care Instructions: Colostomy Care (ED), Colectomy Diet (ED), Colectomy (DC) Prescriptions: New oxycodone 5 mg tablet 5 mg PO Q6H PRN (Reason: pain) Qty: 30 RF: 0 No Action No Sting Barrier Film Pads, Medicated See Rx Instructions topical .COMPLEX Qty: 30 RF: 3 (DME) colostomy bag, non-sterile 1 1/2 (12 ) misc See Rx Instructions .Route Qty: 20 RF: 3 loratadine 10 mg Tablet 10 mg PO DAILY RF: 0 bupropion HCl 300 mg tablet extended release 24 hr 1 tab PO BEDTIME RF: 0 bupropion HCl 150 mg tablet extended release 24 hr 1 tab PO BEDTIME RF: 0 amoxicillin-pot clavulanate [Augmentin] 500-125 mg tablet 1 tab PO BID Qty: 10 RF: 0 Referrals: Gibran Wilson MD [Physician] - 2 days (As previously scheduled) Arina Joe MD [Primary Care Provider] - 2 days
== END 2021-06-09 12:24 | disposition home or self-care (01) ==
PROVIDERS: Emergency Provider Emergency Medicine; PCP Internal Medicine
DX: L76.82 Other postprocedural complications of skin and subcutaneous tissue (principal); Y83.8 Other surgical procedures as the cause of abnormal reaction of the patient, or of later complication, without mention of misadventure at the time of the procedure; Y92.009 Unspecified place in unspecified non-institutional (private) residence as the place of occurrence of the external cause; Z87.19 Personal history of other diseases of the digestive system
CPT/HCPCS: 99283

== ENCOUNTER → 2021-06-16 11:11 | Outpatient (BNVA) | payer OTHER, SELFPAY | PROVIDERS: PCP Internal Medicine; Visit Provider Surgery | DX: Z48.815 Encounter for surgical aftercare following surgery on the digestive system (principal); Z87.19 Personal history of other diseases of the digestive system | CPT/HCPCS: 99212 ==

== ENCOUNTER 2021-07-08 10:01 | Outpatient (REF) | payer OTHER, SELFPAY ==
[2021-07-08 11:31] LABS: Hematocrit 41.5 % (37.0-47.0); Hemoglobin 13.3 g/dl (12.0-16.0); Mean Corpuscular Hemoglobin 29.7 pg (27.0-33.0); Mean Corpuscular Volume 92.6 fL (80.0-98.0); Mean Platelet Volume 10.1 fL (9.4-12.3); Platelet Count 283 X10*3/uL (160-400); Red Blood Count 4.48 X10*6/uL (4.20-5.50); Red Cell Distribution Width 13.2 % (11.0-16.0); White Blood Count 4.9 X10*3/uL (4.8-10.8)
== END 2021-07-08 10:02 | disposition home or self-care (01) ==
LOC: HO.LAB 10:01
PROVIDERS: PCP Internal Medicine; Referring Provider Internal Medicine; Visit Provider Surgery
DX: Z93.3 Colostomy status (principal)
CPT/HCPCS: 36415; 85027; 99212

== ENCOUNTER → 2021-08-09 15:21 | Outpatient (BNVA) | payer OTHER, SELFPAY | PROVIDERS: PCP Internal Medicine; Referring Provider Internal Medicine; Visit Provider Surgery | DX: Z48.815 Encounter for surgical aftercare following surgery on the digestive system (principal); K57.90 Diverticulosis of intestine, part unspecified, without perforation or abscess without bleeding; Z93.3 Colostomy status | CPT/HCPCS: 99212 ==

== ENCOUNTER 2021-10-08 06:22 | Day surgery (SDC) | payer OTHER, SELFPAY ==
[2021-10-04 09:23] VITALS: BMI 21.0
--- NOTE | 2021-10-07 09:40 | HO.ANESPROP2 ---
Documented by User: Faith Perdue NP 10/07/21 09:43 HPI - Anesthesia Eval Consult details Narrative: 56yo F for Colonoscopy via rectum and stoma,poss polypectomy s/p xie 05/2021 with GA-ETT 7 (perf divertic) PMFSH Active Problems Active Problems: All Active Problems (Updated 10/04/21 @ 09:21 by Sabrina Vick RN) Diverticulitis of colon with perforation (Acute) COVID-19 (Acute) Status post Shayy's procedure (Acute) Depression (Acute) Past Medical History Medical History (Updated 10/04/21 @ 09:21 by Sabrina Vick RN) Depression Diverticulitis History of COVID-19 Thyroid disease Family History Family history of problems with anesthesia: No Surgical History Surgical History (Updated 10/04/21 @ 09:21 by Sabrina Vick RN) H/O hernia repair S/P colostomy Status post Shayy's procedure History of Problems with Anesthesia: No Social History Social History Household Members: Family Housing: House Do you presently have visiting nurse or other home services: No Patient Tobacco Use Status: Former Tobacco user Quit Date: 2011 Tobacco use type: Cigarette Years Smoked: 20 Smoked in Last 30 Days: No Use of substances other than those prescribed or required for medical reasons: No Are you DNR?: No Advance Directives: No Advance Directives Information Provided: Yes service: No Current occupational status: employed Meds Allergies Allergy/AdvReac Type Severity Reaction Status Date / Time latex [LATEX] Allergy Intermediate HIVES Verified 10/08/21 06:30 peanut [PEANUT] AdvReac Mild COLD Verified 10/08/21 06:30 SORES Home Medications Medication Instructions Recorded Confirmed Last Taken Type bupropion HCl 150 mg 24 hr tablet, 1 tab PO BEDTIME 06/01/21 10/04/21 Unknown History extended release bupropion HCl 300 mg 24 hr tablet, 1 tab PO BEDTIME 06/01/21 10/04/21 Unknown History extended release loratadine 10 mg tablet 10 mg PO DAILY PRN 06/01/21 10/04/21 Unknown History Exam Exam Date and Time: October 07, 2021 0940 Height,Weight and Vital Signs: Height 5 ft 3 in Weight 53.977 kg Pertinent Lab Results Pertinent Lab Results: Laboratory Tests 12/31/21 02/03/22 05:51 11:12 WBC 4.9 Hgb 13.3 Hct 41.5 Plt Count 283 D Sodium 139 Potassium 3.5 Chloride 105 Carbon Dioxide 28 BUN 5 L Creatinine 0.56 Assessment and Plan Assessment Anesthesia Assessment: Chart Reviewed Final Anesthetic Review Family History of Problems with Anesthesia: No History of Problems with Anesthesia: No Documented by User: Justin Gupta MD 10/08/21 07:24 [facility] Past Medical History Medical History (Updated 10/04/21 @ 09:21 by Sabrina Vick RN) Depression Diverticulitis History of COVID-19 Thyroid disease Family History Family history of problems with anesthesia: No Surgical History Surgical History (Updated 10/04/21 @ 09:21 by Sabrina Vick RN) H/O hernia repair S/P colostomy Status post Shayy's procedure History of Problems with Anesthesia: No Social History Social History Household Members: Family Housing: House Do you presently have visiting nurse or other home services: No Patient Tobacco Use Status: Former Tobacco user Quit Date: 2011 Tobacco use type: Cigarette Years Smoked: 20 Smoked in Last 30 Days: No Use of substances other than those prescribed or required for medical reasons: No Are you DNR?: No Advance Directives: No Advance Directives Information Provided: Yes service: No Current occupational status: employed Meds Allergies Allergy/AdvReac Type Severity Reaction Status Date / Time latex [LATEX] Allergy Intermediate HIVES Verified 10/08/21 06:30 peanut [PEANUT] AdvReac Mild COLD Verified 10/08/21 06:30 SORES Home Medications Medication Instructions Recorded Confirmed Last Taken Type bupropion HCl 150 mg 24 hr tablet, 1 tab PO BEDTIME 06/01/21 10/04/21 Unknown History extended release bupropion HCl 300 mg 24 hr tablet, 1 tab PO BEDTIME 06/01/21 10/04/21 Unknown History extended release loratadine 10 mg tablet 10 mg PO DAILY PRN 06/01/21 10/04/21 Unknown History Exam Airway Mallampati Class: I TM Dist: >3cm Neck ROM: Full Loose/Missing/Broken Teeth: No Heart: ok Lungs: ok Assessment and Plan Final Anesthetic Review Family History of Problems with Anesthesia: No History of Problems with Anesthesia: No NPO: Yes ASA Class: II Final Preanesthetic Review: No Changes in Pt Med Stat, Meds/Allgs Chart Reviewed, Consent Obtained/Reviewed and Anes Risks/Benef Reviewed Patient Risk: Low Procedure Risk: Low Anesthetic Plan Anesthetic Plan: MAC: and Agree w/ Assess. and Plan Disposition: Standard PACU
[2021-10-08 06:40] VITALS: BP 105/67; PULSE 76; RESP 16; TEMP 36.8; O2SAT 100
[2021-10-08] MEDS: Lactated Ringers 1,000 ML 100 ML IVCONT (06:50)
--- NOTE | 2021-10-08 07:22 | MHC.SHP ---
Pre-Procedural Eval Section A Date of Service: 10/08/21 Section B Chief Complaint: Colostomy status Details of Present Illness: had Shayy's procedure May 2021 for perforated diverticulitis; reversal planned Relevant Family History (Specify if Yes): No Relevant Social History: None Present Medications: see Short Stay Collaborative assessment Medical History: Significant History (depression) Allergies: Allergies Allergy/AdvReac Type Severity Reaction Status Date / Time latex [LATEX] Allergy Intermediate HIVES Verified 10/08/21 06:30 peanut [PEANUT] AdvReac Mild COLD Verified 10/08/21 06:30 SORES Review of Systems Sugical H&P ROS: Negative: Constitution, Cardiovascular, Respiratory, Neurological, Psychiatric, Hem-Onc, Allergic/Immunologic, Gastrointestinal, Genitourinary, Musculoskeletal, Integumentary, Endocrine and Eyes/Ears/Nose/Throat Exam Surgical H&P Exam: Normal: HEENT, Normal: Heart, Normal: Lungs, Normal: Extremities, Normal: Skin and Normal: Neurological and Significant Findings: Abdomen (colostomy on left) Plan Diagnosis/Plan: Unchanged I have reviewed the history and physical and performed a pertinent physical examination on my patient. No changes have occurred unless specified.
--- NOTE | 2021-10-08 07:54 | W.PM.OPN ---
Operative Note Operative Note Date of Service: 10/08/21 Narrative: Preop diagnosis: Status post Shayy's procedure for diverticulitis Postop diagnosis: Status post Shayy's procedure for diverticulitis, with diverticulosis seen in the left colon Procedure: Colonoscopy via the stoma and the rectum Surgeon: Gibran Wilson MD Patient is a 56 year female who had undergone emergency Shayy's procedure for perforated diverticulitis last May,. She is here for colonoscopy via the stoma the rectum in preparation for her reversal. She understood the technique of the procedure as well as the risks, benefits, and alternatives She was brought to the operating room placed in left lateral decubitus position under monitored anesthesia care. A full digital rectal exam was done. There were no palpable anal canal lesions. She did have a lot of stool balls that we had to evacuate. I then inserted the scope gently through the anus and this was advanced with insufflation all the way to the meaning of the pouch. The length of the Shayy's pouch was about 22 cm. I then proceeded to withdraw the scope with careful examination of this entire remaining distal sigmoid and rectum. There were no lesions seen. There was no diverticulosis noted in the pouch. I withdrew the scope completely. The rectal shelf in the anal canal wall both unremarkable We then positioned the patient supine. I gently inserted the scope through the stoma and this was advanced with insufflation all the cecum. The cecum was intubated. The cecum identified by visualization of the ileocecal valve as well as the appendiceal orifice. The cecal mucosa was unremarkable. The scope was gradually withdrawn with careful examination of the entire colonic mucosa being done with scope withdrawal. The patient had adequate bowel prep so it was unlikely that any lesion may have been missed. There was note of occasional diverticuli in the left colon. Otherwise, there were no polyps any lesions seen. The scope was withdrawn completely The patient tolerated the procedure well. There were no complications noted. I will therefore schedule patient for reversal of her colostomy.
[2021-10-08 08:01] VITALS: BP 97/49; PULSE 99; RESP 16; TEMP 36.2; O2SAT 96
[2021-10-08 08:16] VITALS: BP 107/75; PULSE 85; RESP 16; TEMP 36.4; O2SAT 99
[2021-10-08 08:31] VITALS: BP 109/61; PULSE 87; RESP 16; TEMP 36.3; O2SAT 99
== END 2021-10-08 08:56 | disposition home or self-care (01) ==
PROVIDERS: PCP Internal Medicine; Visit Provider Surgery
PROC: 0DJD8ZZ Inspection of Lower Intestinal Tract, Via Natural or Artificial Opening Endoscopic (ICD-10-PCS; CPT 45378; principal; 2021-10-08 07:30)
DX: Z43.3 Encounter for attention to colostomy (principal); Z87.19 Personal history of other diseases of the digestive system; K56.41 Fecal impaction; K57.30 Diverticulosis of large intestine without perforation or abscess without bleeding; E07.9 Disorder of thyroid, unspecified; Z79.899 Other long term (current) drug therapy; Z91.040 Latex allergy status; Z86.16 Personal history of COVID-19; Z87.891 Personal history of nicotine dependence
CPT/HCPCS: 44388; J2250

== ENCOUNTER → 2021-10-20 15:07 | Outpatient (BNVA) | payer OTHER, SELFPAY | PROVIDERS: PCP Internal Medicine; Referring Provider Internal Medicine; Visit Provider Surgery | DX: Z93.3 Colostomy status (principal) | CPT/HCPCS: 99212 ==

== ENCOUNTER 2021-11-30 06:37 | Inpatient (IN) | payer OTHER, SELFPAY ==
[2021-11-15 15:24] VITALS: BMI 20.9
--- NOTE | 2021-11-29 08:11 | P.CONAN_ITS ---
Documented by User: aFith Perdue NP 11/29/21 08:24 HPI - Anesthesia Eval Consult details Narrative: 56yo F for Hand assisted Exploratory Laparoscopy -reversal of colostomy,possible open,possible ileostomy s/p colo 10/2021 with MAC s/p ex lap 05/2021 with GA-ETT 7 PMFSH Active Problems Active Problems: All Active Problems (Updated 10/04/21 @ 09:21 by Sabrina Vick RN) Diverticulitis of colon with perforation (Acute) COVID-19 (Acute) Status post Shayy's procedure (Acute) Depression (Acute) Past Medical History Medical History Diverticulitis History of COVID-19 Thyroid disease Family History Family history of problems with anesthesia: No Surgical History Surgical History (Updated 11/15/21 @ 15:21 by Krysten Perez RN) H/O hernia repair Hx of colonoscopy S/P colostomy History of Problems with Anesthesia: No Social History Social History Household Members: Family Housing: House Are you a primary manager medicare marketing to a significant other at home: Yes (children) Do you presently have visiting nurse or other home services: No Patient Tobacco Use Status: Former Tobacco user Quit Date: 2011 Tobacco use type: Cigarette Years Smoked: 20 Have you been hit, kicked, punched, or otherwise hurt by someone within the past year? If so, by whom?: No Are you DNR?: No Advance Directives: No Advance Directives Information Provided: Yes Advance Directives on File: No Recently lost weight without trying: Yes How much weight loss: 2-13 pounds Patient : No service: No Current occupational status: employed Meds Allergies Allergy/AdvReac Type Severity Reaction Status Date / Time latex [LATEX] Allergy Intermediate HIVES Verified 11/15/21 15:22 peanut [PEANUT] AdvReac Mild COLD Verified 11/15/21 15:22 SORES Home Medications Medication Instructions Recorded Confirmed Last Taken Type bupropion HCl 300 mg 24 hr tablet, 450 mg PO BEDTIME 06/01/21 11/15/21 Unknown History extended release loratadine 10 mg tablet 10 mg PO DAILY PRN Allergic 06/01/21 10/04/21 Unknown History Symptoms bupropion HCl 150 mg 24 hr tablet, 1 tab PO QAM 11/30/21 11/30/21 Unknown History extended release Exam Exam Date and Time: November 29, 2021 0811 Height,Weight and Vital Signs: Height 5 ft 3 in Weight 53.524 kg Narrative Narrative: EKG 05/2021 Vent. Rate : 083 BPM ? ? Atrial Rate : 083 BPM ?? P-R Int : 124 ms? QRS Dur : 084 ms ? ? QT Int : 372 ms ? ? ? P-R-T Axes : 037 080 047 degrees ?? QTc Int : 437 ms ? Normal sinus rhythm Normal ECG When compared with ECG of 01-JUN-2021 09:24, No significant change was found Assessment and Plan Final Anesthetic Review Family History of Problems with Anesthesia: No History of Problems with Anesthesia: No Documented by User: Justin Gupta MD 11/30/21 07:32 [facility] Past Medical History Medical History Diverticulitis History of COVID-19 Thyroid disease Patient : No Family History Family history of problems with anesthesia: No Surgical History Surgical History (Updated 11/15/21 @ 15:21 by Krysten Perez RN) H/O hernia repair Hx of colonoscopy S/P colostomy History of Problems with Anesthesia: No Social History Social History Household Members: Family Housing: House Are you a primary manager medicare marketing to a significant other at home: Yes (children) Do you presently have visiting nurse or other home services: No Patient Tobacco Use Status: Former Tobacco user Quit Date: 2011 Tobacco use type: Cigarette Years Smoked: 20 Have you been hit, kicked, punched, or otherwise hurt by someone within the past year? If so, by whom?: No Are you DNR?: No Advance Directives: No Advance Directives Information Provided: Yes Advance Directives on File: No Recently lost weight without trying: Yes How much weight loss: 2-13 pounds Patient : No service: No Current occupational status: employed Meds Allergies Allergy/AdvReac Type Severity Reaction Status Date / Time latex [LATEX] Allergy Intermediate HIVES Verified 11/15/21 15:22 peanut [PEANUT] AdvReac Mild COLD Verified 11/15/21 15:22 SORES Home Medications Medication Instructions Recorded Confirmed Last Taken Type bupropion HCl 300 mg 24 hr tablet, 450 mg PO BEDTIME 06/01/21 11/15/21 Unknown History extended release loratadine 10 mg tablet 10 mg PO DAILY PRN Allergic 06/01/21 10/04/21 Unknown History Symptoms bupropion HCl 150 mg 24 hr tablet, 1 tab PO QAM 11/30/21 11/30/21 Unknown History extended release Exam Airway Mallampati Class: I TM Dist: >3cm Neck ROM: Full Loose/Missing/Broken Teeth: No Heart: ok Lungs: ok Assessment and Plan Assessment Anesthesia Assessment: Anesthesia Plan Discussed and Chart Reviewed Final Anesthetic Review Family History of Problems with Anesthesia: No History of Problems with Anesthesia: No NPO: Yes ASA Class: II Anesthetic Plan Anesthetic Plan: GA and Agree w/ Assess. and Plan Disposition: Standard PACU
[2021-11-30] VITALS (19 sets, daily range): BP systolic 125–165; BP diastolic 68–88; PULSE 63–81; RESP 11–22; TEMP 36.6–37.7; O2SAT 97–100
[2021-11-30] MEDS: Lactated Ringers 1,000 ML 100 ML IVCONT ×2 (06:39→22:06)
[2021-11-30 06:48] LABS: COVID-19 Test Negative (Negative)
--- NOTE | 2021-11-30 07:17 | PHA.MEDREC ---
Pharmacy Consult ? Medication Reconciliation Pharmacy has completed the medication reconciliation. Patients medications extracted from insurance claims with [facility].
[2021-11-30 07:18] LABS: Hematocrit 41.3 % (37.0-47.0); Hemoglobin 13.5 g/dl (12.0-16.0); Mean Corpuscular HGB Conc 32.7 g/dl (31.0-35.0); Mean Corpuscular Hemoglobin 29.8 pg (27.0-33.0); Mean Corpuscular Volume 91.2 fL (80.0-98.0); Mean Platelet Volume 10.1 fL (9.4-12.3); Platelet Count 283 X10*3/uL (160-400); Red Blood Count 4.53 X10*6/uL (4.20-5.50); Red Cell Distribution Width 12.6 % (11.0-16.0); White Blood Count 4.3 X10*3/uL (4.8-10.8)
[2021-11-30 07:26] LABS: Anion Gap 12 (12-20); Blood Urea Nitrogen 16 mg/dL (9-16); Calcium 9.4 mg/dL (8.4-10.2); Carbon Dioxide 24 mmol/L (22-29); Chloride 107 mmol/L (96-108); Creatinine Clr Calc Pharmacy 64.9; Estimated Glomerular Filt Rate > 60; Glucose Fasting 89 mg/dL (60-99); Potassium 4.2 mmol/L (3.3-5.1); Sodium 139 mmol/L (135-145)
[2021-11-30] MEDS: cefoTEtan disodium 2 GM in 0.9 % Sodium Chloride 50 ML IV (07:50)
--- NOTE | 2021-11-30 10:51 | P.OP_ITS ---
Operative Note Operative Note Date of Service: 11/30/21 Narrative: Preop diagnosis: S/P Shayy's procedure for perforated diverticulitis, with a colostomy in place Postop diagnosis: The same Procedure: Hand assisted laparoscopic reversal of an end-colostomy, end to end anastomosis, lysis of adhesions, intraop flexible sigmoidoscopy Surgeon: Gibran Wilson MD 1St special event assistant: Weston Donahue MD Asst: ANGELI Mccurdy The patient is a 56 year female who had undergone emergency laparotomy and Shayy's procedure for perforated diverticulitis. She is here for reversal of her colostomy. She had a colonoscopy via the stoma in the rectum showing diverticular disease without no other pathology. She understood the technique of hand assisted laparoscopic reversal of the end-colostomy. She was aware of the risks, benefits, and alternatives. She was brought to the operating room. She was placed in modified lithotomy position under general seizure via endotracheal tube. The abdomen was prepped and draped in the usual sterile fashion. The perineum was prepped as well. A Garzon catheter was inserted. A surgical time-out was done The patient received Cefotan 2 g IV preoperatively. I made a short midline infraumbilical incision using blade 15. This was carried down through the full-thickness of the skin subcutaneous fat. The fascia was incised. The peritoneum was entered. There were some adherent omentum in the adjacent fascia whichwe had to carefully lyse. I then positioned the Jakub wound retractor. Attached the port on to this and insufflated the abdomen via a port. A 10 mm 30 degree scope was placed through this as well and with laparoscopic visualization, I inserted a 5/12 mm port in the epigastric area on the midline. I removed the insufflating port as well as the camera and this was moved Through this epigastric port. With laparoscopic visualization, I proceeded to insert my hand through the GelPort. The patient was placed in a steep head-down and right side down position. This allowed us to view the lower abdomen. I was able to visualize the colostomy limb. There was note of some adherent omentum the lower abdomen which we had to carefully lyse as well. We therefore were able to have a good exposure of the pelvis. The uterus was seen. The rectal pouch was markedly adherent to the pelvis with a very shortened mesorectum. However, were able to identify this and visualize the staple line. This was running well to the cavity of the sacrum Once we had this identified, then proceeded to take down the colostomy. I desufflated. I made an elliptical incision around the colostomy on the skin using blade 15. And carried this incision with electrocautery until I reached the fascia. I defined the interface of the bowel wall and the fascia and continued to separate the bowel away from the fascia using a combination of sharp dissection with electrocautery as well as Metzenbaum scissors. There was note of some dense adhesions on the lateral and superior aspect of the colostomy. We had to do a lot of dissection using the Metzenbaum scissors and electrocautery until were able to free up this stoma from the fascia. I was able to reduce this at least partially. I closed the fascia with a running Maxon 1 stitch to allow as to re-insufflated I reinserted the laparoscope. I visualized the colostomy site from within the peritoneum. There was still note of a lot of dense adhesions tethering the col ostomy stump to the fascia so had to do a lot of careful dissection with the laparoscopic scissors as well as the LigaSure. Eventually, I was able to completely free up this old colostomy from the abdominal wall. These enough length to reach down the pelvis. I therefore opened desufflated again and work through the Jakub wound retractor. I pulled up the colostomy. I resected the distal most segment with electrocautery and dissected the attached mesentery with the LigaSure. I had to resect some more length in view of the presence of a few diverticuli in this segment. Eventually, I felt that we had a good stump for our anastomosis. I created a pursestring using a Prolene 2 sutures. Prior to that, had dilated this stump of colon to 8 mm. After placing the string, I positioned the anvil of the 28 mm EEA stapler and tighten the pursestring. I cleaned up the the pursestring of omentum and mesentery with sharp dissection. This appeared healthy and viable with no evidence of ischemia. I then had the 1st special event assistant Dr. Donahue insert the dilator through the rectum. We were able to advance it was the end of the rectal stump. He then inserted the 28 mm EEA apparatus and with careful depletion, were able to advance this all the way to the area of the staple line. We activated the spike. We attached the anvil to the spike and locked this in place. We then proceeded to tighten the EEA apparatus. We made sure that there was no bowel loops caught between the Circular staplers. we tested the end to end anastomosis by insufflating with a bulb syringe. The anastomosis was is in irrigation fluid. There was no bubbling seen with multiple insufflations. There was note of good distension of the proximal colon I then proceeded to do an intraop flexible sigmoidoscopy. Dr. Posada inserted the flexible scope gently passed the anastomosis all the way to about 20 cm. We then withdrew and examined the rest of the distal colon and the anastomosis. The anastomosis appeared intact without any evidence of ischemia or bleeding. We then irrigated the pelvis. I examined the tear abdomen laparoscopically. There was no evidence of any injury or bleeding with the peritoneum. I pulled the omentum down into the pelvis. We desufflated and closed the fascia with a running PDS 0 stitch. I reinforced the closure of the end-colostomy by putting additional figure-eight Maxon 1 sutures. I infiltrated all incisions with Marcaine 0.5% for postop analgesia. The midline incision and the old colostomy incision was closed with skin xavier. I position some at the form packing on the old colostomy incision I laparoscopic examined the incisions from within the abdomen and these all appeared without any bowel caught by the sutures I removed the remaining epigastric port as well as the quadrant port. I closed the skin incisions with xavier as well Dressings were applied. The procedure was then completed The patient tolerated procedure well. There were no complication noted. Initial and final counts of sponges and instruments were correct. Estimated blood loss was about 100 cc The patient was extubated out difficulty and transferred to the recovery room with stable vital signs..
--- NOTE | 2021-11-30 11:10 | P.BOP_ITS ---
Brief Operative Note Date of Service: 11/30/21 Pre-op diagnosis: s/p Shayy's procedure with colostomy Post-op diagnosis: same Procedure: Reversal of Shayy's procedure Surgeon: Gibran Wilson MD Anesthesia: GETA Was an Quilting Machine Helper used for this Procedure?: Yes Quilting Machine Helper: Weston Donahue Estimated blood loss (mL): 100 Condition: stable Disposition: PACU
[2021-11-30] MEDS: Morphine Sulfate 2 MG/ML CARTRIDGE IVPUSH ×2 (12:07→14:29)
[2021-11-30] MEDS: Lactated Ringers 1,000 ML 80 ML IVCONT (12:25)
--- NOTE | 2021-11-30 14:45 | PC.NURSE ---
1445 taking ice chips. no nausea. awake conversing. vss
--- NOTE | 2021-11-30 14:54 | PC.NURSE ---
upon transfer to inpatient medsurg-shadow stain noted to left lower midline dressing. size of golf ball. medsurg rn aware
[2021-11-30] MEDS: oxyCODONE HCl Immed Release 5 MG TABLET PO ×2 (15:41→20:34)
--- NOTE | 2021-11-30 16:59 | PM.EVENT ---
Event Note Date of Service: 11/30/21 Event Note: Seen postop Status post reversal of colostomy earlier today Says she has adequate pain control Looks well Stable vital signs Abdomen soft Good output Pain management Incentive spirometry - patient instructed how to do this Family updated earlierm- daughter Anjana [phone]
[2021-11-30] MEDS: Morphine Sulfate 2 MG/ML CARTRIDGE 3 MG IVPUSH (18:48)
[2021-11-30] MEDS: buPROPion HCl XL 150 MG TAB.ER.24H 450 MG PO (20:34)
[2021-12-01] VITALS (7 sets, daily range): BP systolic 106–146; BP diastolic 62–78; PULSE 72–88; RESP 16–18; TEMP 36.4–37.4; O2SAT 94–99
[2021-12-01] MEDS: Heparin Sodium,Porcine 5,000 UNIT/ML VIAL 5000 UNIT SUBCUT ×3 (05:44→22:22)
[2021-12-01] MEDS: Morphine Sulfate 2 MG/ML CARTRIDGE 3 MG IVPUSH ×4 (05:51→19:55)
[2021-12-01] MEDS: ondansetron HCL 4 MG/2 ML VIAL IVPUSH (05:52)
[2021-12-01 06:18] LABS: MANUAL DIFF FLAG NO
[2021-12-01 06:21] LABS: Basophils Percent Auto 0.2 % (0-2); Hematocrit 38.1 % (37.0-47.0); Hemoglobin 12.5 g/dl (12.0-16.0); Imm Gran Abs Auto 0.04 X10*3/uL (0.00-0.03); Imm Gran Pct Auto 0.4 % (0.0-0.4); Lymphocytes Absolute Auto 0.9 X10*3/uL (1.2-4.9); Lymphocytes Percent Auto 8.3 % (20-40); Mean Corpuscular HGB Conc 32.8 g/dl (31.0-35.0); Mean Corpuscular Hemoglobin 29.8 pg (27.0-33.0); Mean Corpuscular Volume 90.9 fL (80.0-98.0); Mean Platelet Volume 10.1 fL (9.4-12.3); Monocytes Percent Auto 9.4 % (2-11); Neutrophils Percent Auto 81.7 % (45-73); Platelet Count 256 X10*3/uL (160-400); Red Blood Count 4.19 X10*6/uL (4.20-5.50); Red Cell Distribution Width 12.7 % (11.0-16.0)
[2021-12-01] MEDS: Lactated Ringers 1,000 ML 100 ML IVCONT ×2 (06:44→16:07)
[2021-12-01 06:53] LABS: Anion Gap 11 (12-20); Blood Urea Nitrogen 11 mg/dL (9-16); Carbon Dioxide 24 mmol/L (22-29); Chloride 102 mmol/L (96-108); Estimated Glomerular Filt Rate > 60; Glucose Random 107 mg/dL (60-115); Potassium 4.1 mmol/L (3.3-5.1); Sodium 133 mmol/L (135-145)
[2021-12-01 07:24] LABS: Calcium 8.5 mg/dL (8.4-10.2)
--- NOTE | 2021-12-01 08:33 | PM.PNGS ---
Subjective Subjective Date of Service: 12/01/21 Interval history: Says she slept well Denies flatus Pain seems well controlled Physical Exam Vital Signs: Vital Signs: Last Vital Signs Temp 97.9 F 12/01/21 07:43 Pulse 72 12/01/21 07:43 Resp 18 12/01/21 07:43 BP 110/62 12/01/21 07:43 Pulse Ox 99 12/01/21 07:43 O2 Del Method 12/01/21 07:43 O2 Flow Rate 1 12/01/21 07:43 BMI result Body Mass Index 20.9 Const: General: comfortable and no acute distress Resp: Effort & Inspection: normal respiratory effort GI: Other: Soft, dressings dry no guarding rebound Objective Data Active Medications Bupropion HCl (Bupropion Hcl Xl 150 Mg Tab.Er.24h) 150 mg PO DAILY ON LICENSE OF [facility] Last Admin: 11/30/21 15:39 Dose: Not Given Documented By: PING Non-Admin Reason: unknown, not on unit Bupropion HCl (Bupropion Hcl Xl 150 Mg Tab.Er.24h) 450 mg PO BEDTIME ON LICENSE OF [facility] Last Admin: 11/30/21 20:34 Dose: 450 mg Documented By: PING Fentanyl (Fentanyl Citrate/Pf 100 Mcg/2 Ml Vial) 50 mcg IVPUSH Q5M PRN; Protocol PRN Reason: Pain, Severe (Pain Scale 7-10) Heparin Sodium (Porcine) (Heparin Sodium,Porcine 5,000 Unit/Ml Vial) 5,000 unit SUBCUT Q8H ON LICENSE OF [facility] Last Admin: 12/01/21 05:44 Dose: 5,000 unit Documented By: TR Lactated Ringer's (Lr) 1,000 mls @ 100 mls/hr IVCONT .Q10H ON LICENSE OF [facility] Last Admin: 12/01/21 06:44 Dose: 100 mls/hr Documented By: TR Promethazine HCl 12.5 mg/ (Sodium Chloride) 50.5 mls @ 202 mls/hr IV ONCE PRN PRN Reason: Nausea and Vomiting Acetaminophen (Ofirmev) 1,000 mg in 100 mls @ 400 mls/hr IV Q6H ON LICENSE OF [facility] Last Infusion: 12/01/21 06:24 Dose: 0 mls/hr Documented By: TR Lactated Ringer's (Lr) 1,000 mls @ 80 mls/hr IVCONT .[id number] ON LICENSE OF [facility] Last Infusion: 12/01/21 06:45 Dose: 0 mls/hr Documented By: TR Morphine Sulfate (Morphine Sulfate 2 Mg/Ml Cartridge) 2 mg IVPUSH Q5M PRN; Protocol PRN Reason: Pain, Mild (Pain Scale 1-3) Last Admin: 11/30/21 14:29 Dose: 2 mg Documented By: RENETTA Morphine Sulfate (Morphine Sulfate 2 Mg/Ml Cartridge) 3 mg IVPUSH Q3H PRN; Protocol PRN Reason: Pain, Moderate (Pain Scale 4-6 Last Admin: 12/01/21 05:51 Dose: 3 mg Documented By: TR Ondansetron HCl (Ondansetron Hcl 4 Mg/2 Ml Vial) 4 mg IVPUSH ONCE PRN PRN Reason: Nausea and Vomiting Ondansetron HCl (Ondansetron Hcl 4 Mg/2 Ml Vial) 4 mg IVPUSH Q8H PRN PRN Reason: Nausea and Vomiting Last Admin: 12/01/21 05:52 Dose: 4 mg Documented By: TR Oxycodone HCl (Oxycodone Hcl Immed Release 5 Mg Tablet) 5 mg PO Q4H PRN PRN Reason: Pain, Moderate (Pain Scale 4-6 Last Admin: 11/30/21 20:34 Dose: 5 mg Documented By: PING Sodium Chloride (0.9 % Sodium Chloride Flush 3 Ml Syringe) 3 ml IVFLUSH [facility] Last Admin: 12/01/21 00:33 Dose: Not Given Documented By: TR Non-Admin Reason: IV Running Labs CBC & Chem 7: 12/01/21 06:06 12/01/21 06:06 Labs: Laboratory Results - last 24 hr 12/01/21 12/01/21 06:06 06:06 MCV 90.9 MCH 29.8 MCHC 32.8 RDW 12.7 Plt Count 256 MPV 10.1 Immature Gran % (Auto) 0.4 Neut % (Auto) 81.7 H Lymph % (Auto) 8.3 L [place] % (Auto) 9.4 Eos % (Auto) 0.0 Baso % (Auto) 0.2 Lymph # (Auto) 0.9 L [place] # (Auto) 1.0 Eos # (Auto) 0.0 Baso # (Auto) 0.0 Abs Immat Gran (auto) 0.04 H Absolute Neuts (auto) 9.0 H Absolute Nucleated RBC 0.000 Nucleated RBC % (auto) 0.0 Anion Gap 11 L Estim Creat Clear Calc 73.0 Estimated GFR > 60 Random Glucose 107 Calcium 8.5 D Procedures Date of Service Date of Service: 12/01/21 Progress Note: A&P Assessment and plan (1) Status post Shayy's procedure: Status: Acute Assessment and Plan: Status post hand assisted laparoscopic reversal of her colostomy Encouraged to get out of bed,ambulate Incentive spirometry Pain management DC Garzon later today Doing well postop Time Spent With Patient Time: Total time spent is greater than 50% in coordination of care (as documented) at patient's floor/unit and/or counseling patient: Quality Stroke Does the patient have a stroke diagnosis?: No VTE Prior VTE?: No VTE Risk Level:: Medical - moderate - high VTE Device Contraindication: N/A - Device Ordered VTE Drug Contraindication: N/A - Med Ordered
[2021-12-01] MEDS: buPROPion HCl XL 150 MG TAB.ER.24H PO (10:10)
--- NOTE | 2021-12-01 13:57 | MHC.CLN ---
NUTRITION PATIENT ON CLEAR LIQUID DIET. ADDING ENSURE CLEAR TID TO PROVIDE ADDITIONAL 720 KCALS, 24 G PROTEIN.
--- NOTE | 2021-12-01 15:46 | MHC.CM.PN ---
PER SURGICAL, PATIENT WILL BE DC FOR SOME TIME. CASE MANAGEMENT TO VISIT TOMORROW (12/02/21)
--- NOTE | 2021-12-01 18:46 | HO.POSTANES ---
Post Anesthesia Evaluation Post Anesthesia Evaluation Vital Signs: Vital Signs Temp Pulse Resp BP Pulse Ox O2 Del Method O2 Flow Rate 12/01/21 16:00 97.9 F 86 18 106/64 97 Room Air 12/01/21 11:33 97.6 F 88 18 124/75 96 Room Air 12/01/21 07:32 94 Room Air 12/01/21 07:43 97.9 F 72 18 110/62 99 Nasal Cannula 1 Anesthesia: General Endotracheal-GETA Mental Status: Awake Pain Control: Satisfactory Nausea/Vomiting: None Hydration: Adequate Anesthesia-Related Issues: No Anes. Related Issues
[2021-12-01] MEDS: buPROPion HCl XL 150 MG TAB.ER.24H 450 MG PO (19:55)
[2021-12-02] VITALS (7 sets, daily range): BP systolic 113–146; BP diastolic 62–79; PULSE 88–97; RESP 17–18; TEMP 37–37.3; O2SAT 96–98
[2021-12-02] MEDS: Lactated Ringers 1,000 ML 100 ML IVCONT (02:19)
[2021-12-02] MEDS: Morphine Sulfate 2 MG/ML CARTRIDGE 3 MG IVPUSH (04:14)
[2021-12-02] MEDS: Heparin Sodium,Porcine 5,000 UNIT/ML VIAL 5000 UNIT SUBCUT ×3 (05:35→21:30)
--- NOTE | 2021-12-02 09:44 | MHC.CM.PN ---
PATIENT IS FULLY INDEPENDENT SHE LIVES WITH SIGNIFICANT OTHER NO DME OR VNA IN THE HOME. ITS BEEN APPROX 2 YEARS SINCE SHE LAST SAW HER PCP AND SHE IS UNSURE IF SHE WILL NEED VNA AT DC. HCP ON UNIT IN PAPER CHART AND NOW UPLOADED INTO [facility] PATIENT IS NOT VACCINATED AGAINST COVID-19. CASE MANAGEMENT FOLLOWING FOR DC NEEDS.
--- NOTE | 2021-12-02 10:06 | P.PNGS_ITS ---
Subjective Subjective Date of Service: 12/02/21 Interval history: She has been passing flatus Good pain control Feels better this morning Physical Exam Vital Signs: Vital Signs: Last Vital Signs Temp 98.6 F 12/02/21 07:50 Pulse 93 12/02/21 07:50 Resp 18 12/02/21 07:50 BP 128/76 12/02/21 07:50 Pulse Ox 98 12/02/21 07:50 O2 Del Method 12/02/21 07:50 O2 Flow Rate 1 12/01/21 07:43 BMI result Body Mass Index 20.9 Const: General: comfortable and no acute distress Resp: Effort & Inspection: normal respiratory effort Cardio: Rate: regular rate GI: Other: Soft, guarding or rebound, incisions healing well, tenderness on incisions appropriate to postop status Objective Data Active Medications Bupropion HCl (Bupropion Hcl Xl 150 Mg Tab.Er.24h) 150 mg PO DAILY [facility] Last Admin: 12/01/21 10:10 Dose: 150 mg Documented By: BRODY Bupropion HCl (Bupropion Hcl Xl 150 Mg Tab.Er.24h) 450 mg PO BEDTIME [facility] Last Admin: 12/01/21 19:55 Dose: 450 mg Documented By: NATHALY Fentanyl (Fentanyl Citrate/Pf 100 Mcg/2 Ml Vial) 50 mcg IVPUSH Q5M PRN; Protocol PRN Reason: Pain, Severe (Pain Scale 7-10) Heparin Sodium (Porcine) (Heparin Sodium,Porcine 5,000 Unit/Ml Vial) 5,000 unit SUBCUT Q8H [facility] Last Admin: 12/02/21 05:35 Dose: 5,000 unit Documented By: NATHALY Promethazine HCl 12.5 mg/ (Sodium Chloride) 50.5 mls @ 202 mls/hr IV ONCE PRN PRN Reason: Nausea and Vomiting Acetaminophen (Ofirmev) 1,000 mg in 100 mls @ 400 mls/hr IV Q6H [facility] Last Infusion: 12/02/21 05:58 Dose: 0 mls/hr Documented By: NATHALY Lactated Ringer's (Lr) 1,000 mls @ 80 mls/hr IVCONT .[id number] [facility] Last Admin: 12/02/21 02:20 Dose: Not Given Documented By: NATHALY Non-Admin Reason: duplicate order Morphine Sulfate (Morphine Sulfate 2 Mg/Ml Cartridge) 2 mg IVPUSH Q5M PRN; Protocol PRN Reason: Pain, Mild (Pain Scale 1-3) Last Admin: 11/30/21 14:29 Dose: 2 mg Documented By: RENETTA Morphine Sulfate (Morphine Sulfate 2 Mg/Ml Cartridge) 3 mg IVPUSH Q3H PRN; Protocol PRN Reason: Pain, Moderate (Pain Scale 4-6 Last Admin: 12/02/21 04:14 Dose: 3 mg Documented By: NATHALY Ondansetron HCl (Ondansetron Hcl 4 Mg/2 Ml Vial) 4 mg IVPUSH ONCE PRN PRN Reason: Nausea and Vomiting Ondansetron HCl (Ondansetron Hcl 4 Mg/2 Ml Vial) 4 mg IVPUSH Q8H PRN PRN Reason: Nausea and Vomiting Last Admin: 12/01/21 05:52 Dose: 4 mg Documented By: TR Oxycodone HCl (Oxycodone Hcl Immed Release 5 Mg Tablet) 5 mg PO Q4H PRN PRN Reason: Pain, Moderate (Pain Scale 4-6 Last Admin: 11/30/21 20:34 Dose: 5 mg Documented By: PING Sodium Chloride (0.9 % Sodium Chloride Flush 3 Ml Syringe) 3 ml IVFSH [facility] Last Admin: 12/02/21 07:27 Dose: Not Given Documented By: PING Non-Admin Reason: IV Running Labs CBC & Chem 7: 12/01/21 06:06 12/01/21 06:06 Procedures Date of Service Date of Service: 12/02/21 Progress Note: A&P Assessment and plan (1) Status post Shayy's procedure: Status: Acute Assessment and Plan: Status post reversal of colostomy She looks well Has been passing flatus Will try on full liquids later today DC Garzon Ambulate Pain management Time Spent With Patient Time: Total time spent is greater than 50% in coordination of care (as documented) at patient's floor/unit and/or counseling patient: Quality Stroke Does the patient have a stroke diagnosis?: No VTE Prior VTE?: No VTE Risk Level:: Medical - moderate - high VTE Device Contraindication: N/A - Device Ordered VTE Drug Contraindication: N/A - Med Ordered
[2021-12-02] MEDS: oxyCODONE HCl Immed Release 5 MG TABLET PO ×3 (10:40→19:38)
[2021-12-02] MEDS: buPROPion HCl XL 150 MG TAB.ER.24H PO (11:00)
[2021-12-02] MEDS: Lactated Ringers 1,000 ML 80 ML IVCONT (11:01)
[2021-12-02] MEDS: buPROPion HCl XL 150 MG TAB.ER.24H 450 MG PO (21:31)
[2021-12-03] VITALS (7 sets, daily range): BP systolic 125–149; BP diastolic 72–90; PULSE 86–98; RESP 16–18; TEMP 36.1–37.7; O2SAT 94–98
[2021-12-03] MEDS: Lactated Ringers 1,000 ML 80 ML IVCONT (01:25)
[2021-12-03] MEDS: Heparin Sodium,Porcine 5,000 UNIT/ML VIAL 5000 UNIT SUBCUT ×3 (05:13→20:01)
--- NOTE | 2021-12-03 10:10 | P.PNGS_ITS ---
Subjective Subjective Date of Service: 12/03/21 Interval history: Good pain control Passing flatus Says she has been ambulating Physical Exam Vital Signs: Vital Signs: Last Vital Signs Temp 97.6 F 12/03/21 07:49 Pulse 86 12/03/21 07:49 Resp 18 12/03/21 07:49 BP 139/82 12/03/21 07:49 Pulse Ox 97 12/03/21 07:49 O2 Del Method 12/03/21 07:49 O2 Flow Rate 1 12/01/21 07:43 BMI result Body Mass Index 20.9 Const: General: comfortable and no acute distress Resp: Effort & Inspection: normal respiratory effort Cardio: Rate: regular rate GI: Other: Soft, nondistended, no guarding rebound, incisions clean and dry Objective Data Active Medications Bupropion HCl (Bupropion Hcl Xl 150 Mg Tab.Er.24h) 150 mg PO DAILY [facility] Last Admin: 12/02/21 11:00 Dose: 150 mg Documented By: PING Bupropion HCl (Bupropion Hcl Xl 150 Mg Tab.Er.24h) 450 mg PO BEDTIME [facility] Last Admin: 12/02/21 21:31 Dose: 450 mg Documented By: NATHALY Fentanyl (Fentanyl Citrate/Pf 100 Mcg/2 Ml Vial) 50 mcg IVPUSH Q5M PRN; Protocol PRN Reason: Pain, Severe (Pain Scale 7-10) Heparin Sodium (Porcine) (Heparin Sodium,Porcine 5,000 Unit/Ml Vial) 5,000 unit SUBCUT Q8H [facility] Last Admin: 12/03/21 05:13 Dose: 5,000 unit Documented By: NATHALY Promethazine HCl 12.5 mg/ (Sodium Chloride) 50.5 mls @ 202 mls/hr IV ONCE PRN PRN Reason: Nausea and Vomiting Acetaminophen (Ofirmev) 1,000 mg in 100 mls @ 400 mls/hr IV Q6H [facility] Last Infusion: 12/03/21 06:26 Dose: 0 mls/hr Documented By: NATHALY Lactated Ringer's (Lr) 1,000 mls @ 80 mls/hr IVCONT .[id number] [facility] Last Admin: 12/03/21 01:25 Dose: 80 mls/hr Documented By: NATHALY Morphine Sulfate (Morphine Sulfate 2 Mg/Ml Cartridge) 2 mg IVPUSH Q5M PRN; Protocol PRN Reason: Pain, Mild (Pain Scale 1-3) Last Admin: 11/30/21 14:29 Dose: 2 mg Documented By: RENETTA Morphine Sulfate (Morphine Sulfate 2 Mg/Ml Cartridge) 3 mg IVPUSH Q3H PRN; Protocol PRN Reason: Pain, Moderate (Pain Scale 4-6 Last Admin: 12/02/21 04:14 Dose: 3 mg Documented By: NATHALY Ondansetron HCl (Ondansetron Hcl 4 Mg/2 Ml Vial) 4 mg IVPUSH ONCE PRN PRN Reason: Nausea and Vomiting Ondansetron HCl (Ondansetron Hcl 4 Mg/2 Ml Vial) 4 mg IVPUSH Q8H PRN PRN Reason: Nausea and Vomiting Last Admin: 12/01/21 05:52 Dose: 4 mg Documented By: TR Oxycodone HCl (Oxycodone Hcl Immed Release 5 Mg Tablet) 5 mg PO Q4H PRN PRN Reason: Pain, Moderate (Pain Scale 4-6 Last Admin: 12/02/21 19:38 Dose: 5 mg Documented By: NATHALY Sodium Chloride (0.9 % Sodium Chloride Flush 3 Ml Syringe) 3 ml IVFLUSH [facility] Last Admin: 12/03/21 09:19 Dose: Not Given Documented By: PING Non-Admin Reason: IV Running Labs CBC & Chem 7: 12/01/21 06:06 12/01/21 06:06 Procedures Date of Service Date of Service: 12/03/21 Progress Note: A&P Assessment and plan (1) Status post Shayy's procedure: Status: Acute Assessment and Plan: Status post reversal of colostomy Looks well Has been passing flatus Advance diet Encourage ambulation Discharge planning once tolerating diet Time Spent With Patient Time: Total time spent is greater than 50% in coordination of care (as documented) at patient's floor/unit and/or counseling patient: Quality Stroke Does the patient have a stroke diagnosis?: No VTE Prior VTE?: No VTE Risk Level:: Medical - moderate - high VTE Device Contraindication: N/A - Device Ordered VTE Drug Contraindication: N/A - Med Ordered
[2021-12-03] MEDS: oxyCODONE HCl Immed Release 5 MG TABLET PO (11:11)
[2021-12-03] MEDS: buPROPion HCl XL 150 MG TAB.ER.24H PO (11:12)
[2021-12-03] MEDS: 0.9 % Sodium Chloride Flush 3 ML SYRINGE IVFLUSH ×2 (14:59→20:02)
[2021-12-03] MEDS: buPROPion HCl XL 150 MG TAB.ER.24H 450 MG PO (20:01)
[2021-12-04 03:27] VITALS: BP 129/71; PULSE 96; RESP 18; TEMP 37.3; O2SAT 97
[2021-12-04] MEDS: Heparin Sodium,Porcine 5,000 UNIT/ML VIAL 5000 UNIT SUBCUT ×3 (06:09→20:41)
[2021-12-04 08:00] VITALS: BP 122/82; PULSE 88; RESP 16; TEMP 37.5; O2SAT 98
--- NOTE | 2021-12-04 08:37 | P.PNGS_ITS ---
Subjective Subjective Date of Service: 12/04/21 Interval history: feels well passing flatus had small BMs yesterday, a little loose, small amount of blood seen usually very anxious but in good spirits today Physical Exam Vital Signs: Vital Signs: Last Vital Signs Temp 99.5 F 12/04/21 08:00 Pulse 88 12/04/21 08:00 Resp 16 12/04/21 08:00 BP 122/82 12/04/21 08:00 Pulse Ox 98 12/04/21 08:00 O2 Del Method 12/04/21 08:00 O2 Flow Rate 1 12/01/21 07:43 BMI result Body Mass Index 20.9 Const: General: comfortable and no acute distress Resp: Effort & Inspection: normal respiratory effort Cardio: Rate: regular rate GI: Other: incisions clean and dry Palpation (GI): Soft to palpation, not firm and no guarding Objective Data Active Medications Bupropion HCl (Bupropion Hcl Xl 150 Mg Tab.Er.24h) 150 mg PO DAILY [facility] Last Admin: 12/03/21 11:12 Dose: 150 mg Documented By: PING Bupropion HCl (Bupropion Hcl Xl 150 Mg Tab.Er.24h) 450 mg PO BEDTIME [facility] Last Admin: 12/03/21 20:01 Dose: 450 mg Documented By: AMY Fentanyl (Fentanyl Citrate/Pf 100 Mcg/2 Ml Vial) 50 mcg IVPUSH Q5M PRN; Protocol PRN Reason: Pain, Severe (Pain Scale 7-10) Heparin Sodium (Porcine) (Heparin Sodium,Porcine 5,000 Unit/Ml Vial) 5,000 unit SUBCUT Q8H [facility] Last Admin: 12/04/21 06:09 Dose: 5,000 unit Documented By: AMY Promethazine HCl 12.5 mg/ (Sodium Chloride) 50.5 mls @ 202 mls/hr IV ONCE PRN PRN Reason: Nausea and Vomiting Morphine Sulfate (Morphine Sulfate 2 Mg/Ml Cartridge) 2 mg IVPUSH Q5M PRN; Protocol PRN Reason: Pain, Mild (Pain Scale 1-3) Last Admin: 11/30/21 14:29 Dose: 2 mg Documented By: RENETTA Morphine Sulfate (Morphine Sulfate 2 Mg/Ml Cartridge) 3 mg IVPUSH Q3H PRN; Protocol PRN Reason: Pain, Moderate (Pain Scale 4-6 Last Admin: 12/02/21 04:14 Dose: 3 mg Documented By: NATHALY Ondansetron HCl (Ondansetron Hcl 4 Mg/2 Ml Vial) 4 mg IVPUSH ONCE PRN PRN Reason: Nausea and Vomiting Ondansetron HCl (Ondansetron Hcl 4 Mg/2 Ml Vial) 4 mg IVPUSH Q8H PRN PRN Reason: Nausea and Vomiting Last Admin: 12/01/21 05:52 Dose: 4 mg Documented By: TR Oxycodone HCl (Oxycodone Hcl Immed Release 5 Mg Tablet) 5 mg PO Q4H PRN PRN Reason: Pain, Moderate (Pain Scale 4-6 Last Admin: 12/03/21 11:11 Dose: 5 mg Documented By: PING Sodium Chloride (0.9 % Sodium Chloride Flush 3 Ml Syringe) 3 ml IVFLUSH [facility] Last Admin: 12/03/21 20:02 Dose: 3 ml Documented By: ANTOIC Labs CBC & Chem 7: 12/01/21 06:06 12/01/21 06:06 Procedures Date of Service Date of Service: 12/04/21 Progress Note: A&P Assessment and plan (1) Status post Shayy's procedure: Status: Acute Assessment and Plan: S/P reversal of colostomy looks well passing flatus and BMs abd soft, benign incisions clean she is anxious about going home today - says she will go home tomorrow clinically doing very well Time Spent With Patient Time: Total time spent is greater than 50% in coordination of care (as documented) at patient's floor/unit and/or counseling patient: Quality Stroke Does the patient have a stroke diagnosis?: No VTE Prior VTE?: No VTE Risk Level:: Medical - moderate - high VTE Device Contraindication: N/A - Device Ordered VTE Drug Contraindication: N/A - Med Ordered
[2021-12-04] MEDS: buPROPion HCl XL 150 MG TAB.ER.24H PO (09:21)
[2021-12-04] MEDS: 0.9 % Sodium Chloride Flush 3 ML SYRINGE IVFLUSH (09:23)
[2021-12-04 12:00] VITALS: BP 135/82; PULSE 99; RESP 18; TEMP 37; O2SAT 97
[2021-12-04 16:39] VITALS: BP 138/80; PULSE 74; RESP 18; TEMP 37.1; O2SAT 99
[2021-12-04 19:29] VITALS: BP 135/63; PULSE 94; RESP 16; TEMP 36.6; O2SAT 99
[2021-12-04 20:27] VITALS: BP 141/82; PULSE 85; RESP 18; TEMP 37; O2SAT 97
[2021-12-04] MEDS: buPROPion HCl XL 150 MG TAB.ER.24H 450 MG PO (20:40)
[2021-12-04] MEDS: oxyCODONE HCl Immed Release 5 MG TABLET PO (20:40)
[2021-12-05] VITALS: BP 126/63; PULSE 93; RESP 18; TEMP 36.8; O2SAT 98
[2021-12-05] MEDS: 0.9 % Sodium Chloride Flush 3 ML SYRINGE IVFLUSH
[2021-12-05 04:00] VITALS: BP 124/72; PULSE 77; RESP 18; TEMP 36.6; O2SAT 97
[2021-12-05] MEDS: Heparin Sodium,Porcine 5,000 UNIT/ML VIAL 5000 UNIT SUBCUT (05:57)
[2021-12-05 08:00] VITALS: BP 126/73; PULSE 76; RESP 16; TEMP 36.8; O2SAT 98
[2021-12-05] MEDS: buPROPion HCl XL 150 MG TAB.ER.24H PO (08:48)
--- NOTE | 2021-12-05 09:41 | PM.PNGS ---
Subjective Subjective Date of Service: 12/05/21 Interval history: Sherie feels much improved today, tolerating a diet and having loose bowel movements. She denies significant abdominal pain at this time. Physical Exam Vital Signs: Vital Signs: Last Vital Signs Temp 98.3 F 12/05/21 08:00 Pulse 76 12/05/21 08:00 Resp 16 12/05/21 08:00 BP 126/73 12/05/21 08:00 Pulse Ox 98 12/05/21 08:00 O2 Del Method 12/05/21 08:00 O2 Flow Rate 1 12/01/21 07:43 BMI result Body Mass Index 20.9 Const: General: comfortable and no acute distress Nutritional Appearance: well nourished Orientation/consciousness: patient oriented x3 Limitations: no limitations Resp: Effort & Inspection: normal respiratory effort GI: Other: Midline incision and left lower quadrant incision is clean and intact. There is no evidence of underlying abscess. Neuro: General: patient oriented x3 Extrem: Other: No cyanosis, clubbing, or edema. Objective Data Active Medications Bupropion HCl (Bupropion Hcl Xl 150 Mg Tab.Er.24h) 150 mg PO DAILY FOR[facility] Last Admin: 12/05/21 08:48 Dose: 150 mg Documented By: GRIS Bupropion HCl (Bupropion Hcl Xl 150 Mg Tab.Er.24h) 450 mg PO BEDTIME [facility] Last Admin: 12/04/21 20:40 Dose: 450 mg Documented By: KIRILL Heparin Sodium (Porcine) (Heparin Sodium,Porcine 5,000 Unit/Ml Vial) 5,000 unit SUBCUT Q8H [facility] Last Admin: 12/05/21 05:57 Dose: 5,000 unit Documented By: BRANDI Promethazine HCl 12.5 mg/ (Sodium Chloride) 50.5 mls @ 202 mls/hr IV ONCE PRN PRN Reason: Nausea and Vomiting Morphine Sulfate (Morphine Sulfate 2 Mg/Ml Cartridge) 3 mg IVPUSH Q3H PRN; Protocol PRN Reason: Pain, Moderate (Pain Scale 4-6 Last Admin: 12/02/21 04:14 Dose: 3 mg Documented By: NATHALY Ondansetron HCl (Ondansetron Hcl 4 Mg/2 Ml Vial) 4 mg IVPUSH ONCE PRN PRN Reason: Nausea and Vomiting Ondansetron HCl (Ondansetron Hcl 4 Mg/2 Ml Vial) 4 mg IVPUSH Q8H PRN PRN Reason: Nausea and Vomiting Last Admin: 12/01/21 05:52 Dose: 4 mg Documented By: TR Oxycodone HCl (Oxycodone Hcl Immed Release 5 Mg Tablet) 5 mg PO Q4H PRN PRN Reason: Pain, Moderate (Pain Scale 4-6 Last Admin: 12/04/21 20:40 Dose: 5 mg Documented By: KIRILL Sodium Chloride (0.9 % Sodium Chloride Flush 3 Ml Syringe) [facility] Last Admin: 12/05/21 00:00 Dose: 3 ml Documented By: SEXK Labs CBC & Chem 7: 12/01/21 06:06 12/01/21 06:06 Procedures Date of Service Date of Service: 12/05/21 Progress Note: A&P Assessment and plan (1) Diverticulitis of colon with perforation: Status: Acute (2) Status post Shayy's procedure: Status: Acute Plan Patient is s/p closure of colostomy on 11/30/2021. She tolerated the procedure well and is now tolerating a regular diet. She feels ready for discharge to home. Commended no lifting greater than 10 lb. She will follow up with Dr. Wilson in the office for staple removal. She should call for fever, chills, nausea, vomiting, increased abdominal pain or other concerns. She expressed understanding and agrees with the plan. Time Spent With Patient Time: Total time spent is greater than 50% in coordination of care (as documented) at patient's floor/unit and/or counseling patient: Quality Stroke Does the patient have a stroke diagnosis?: No VTE Prior VTE?: No VTE Risk Level:: Medical - moderate - high VTE Device Contraindication: N/A - Device Ordered VTE Drug Contraindication: N/A - Med Ordered
--- NOTE | 2021-12-05 12:58 | MHC.CM.PN ---
PT MEDICALLY CLEARED FOR D/C HOME, NO SERVICES ORDERED, FAMILY FOR TRANSPORT
--- NOTE | 2021-12-10 15:55 | PM.DS ---
DS: Providers Provider Date of Service: 12/05/21 Date of admission: 11/30/21 06:37 Primary care physician: Arina Joe MD DS: Diagnosis Discharge Diagnosis (1) Diverticulitis of colon with perforation: Status: Acute (2) Status post Shayy's procedure: Status: Acute DS: Summary Hospital Course Hospital Course: 56-year-old female with a history of perforated diverticulitis, status post Shayy's procedure last May,, who came in for a scheduled reversal of her colostomy last 11/30/2021. She underwent hand assisted laparoscopic reversal of the end colostomy. She tolerated procedure well. She was started on clear liquids postoperatively. She was maintained on Ofirmev and morphine for pain. She started to pass flatus on her 1st postop day. She was therefore added on full liquids on postop day number 2. She tolerated this well. Her diet was gradually advanced. She continued to have good passage of flatus and had bowel movements on her 3rd postop day. She was tolerating regular diet well at that time. She did have some issues with tolerance so she was kept in the hospital for a little longer. At time of her discharge however on 12/05/2021, she had good oral intake and had GI function as well. Her incision was well healing and not infected. Time Spent with Patient Time attestation: Total time spent providing and/or coordinating discharge services: Discharge coordination time: Less than 30 minutes Quality: Safe Use of Opioids Does Pt have an Active Cancer Diagnosis on the Problem List?: No Quality: Stroke Does the patient have a stroke diagnosis?: No Physical Exam Vital Signs: Vital Signs: Last Vital Signs Temp 98.3 F 12/05/21 08:00 Pulse 76 12/05/21 08:00 Resp 16 12/05/21 08:00 BP 126/73 12/05/21 08:00 Pulse Ox 98 12/05/21 08:00 O2 Del Method 12/05/21 08:00 O2 Flow Rate 1 12/01/21 07:43 BMI result Body Mass Index 20.9 Const: General: comfortable and no acute distress Orientation/consciousness: patient oriented x3 Neck: Neck: Yes no lymphadenopathy Resp: Auscultation: clear to auscultation bilaterally Cardio: Rhythm: regular rhythm GI: Other: Incisions healing well, not infected Palpation (GI): Soft to palpation, nontender and no guarding Neuro: General: patient oriented x3 DS: Data Data Completed and Pending Completed studies during hospitalization [Text1]: Pending at discharge 11/30/21 10:40 Surgical [PTH] Routine Procedures Bypass Sigmoid Colon to Cutaneous, Open Approach (06/01/21) Excision of Sigmoid Colon, Open Approach (06/01/21) Pending studies at discharge: Laboratory Results WBC 11.0 X10*3/uL (4.8-10.8) H 12/01/21 06:06 RBC 4.19 X10*6/uL (4.20-5.50) L 12/01/21 06:06 Hgb 12.5 g/dl (12.0-16.0) 12/01/21 06:06 Hct 38.1 % (37.0-47.0) 12/01/21 06:06 MCV 90.9 fL (80.0-98.0) 12/01/21 06:06 MCH 29.8 pg (27.0-33.0) 12/01/21 06:06 MCHC 32.8 g/dl (31.0-35.0) 12/01/21 06:06 RDW 12.7 % (11.0-16.0) 12/01/21 06:06 Plt Count 256 X10*3/uL (160-400) 12/01/21 06:06 MPV 10.1 fL (9.4-12.3) 12/01/21 06:06 Immature Gran % (Auto) 0.4 % (0.0-0.4) 12/01/21 06:06 Neut % (Auto) 81.7 % (45-73) H 12/01/21 06:06 Lymph % (Auto) 8.3 % (20-40) L 12/01/21 06:06 [place] % (Auto) 9.4 % (2-11) 12/01/21 06:06 Eos % (Auto) 0.0 % (0-4) 12/01/21 06:06 Baso % (Auto) 0.2 % (0-2) 12/01/21 06:06 Lymph # (Auto) 0.9 X10*3/uL (1.2-4.9) L 12/01/21 06:06 [place] # (Auto) 1.0 X10*3/uL (0.1-1.2) 12/01/21 06:06 Eos # (Auto) 0.0 X10*3/uL (0.0-0.4) 12/01/21 06:06 Baso # (Auto) 0.0 X10*3/uL (0.0-0.2) 12/01/21 06:06 Abs Immat Gran (auto) 0.04 X10*3/uL (0.00-0.03) H 12/01/21 06:06 Absolute Neuts (auto) 9.0 x10*3/uL (2.0-8.3) H 12/01/21 06:06 Absolute Nucleated RBC 0.000 X10*3/uL (0.0-0.012) 12/01/21 06:06 Nucleated RBC % (auto) 0.0 /100WBC (0.0-0.2) 12/01/21 06:06 Sodium 133 mmol/L (135-145) L 12/01/21 06:06 Potassium 4.1 mmol/L (3.3-5.1) 12/01/21 06:06 Chloride 102 mmol/L (96-108) 12/01/21 06:06 Carbon Dioxide 24 mmol/L (22-29) 12/01/21 06:06 Anion Gap 11 (12-20) L 12/01/21 06:06 BUN 11 mg/dL (9-16) 12/01/21 06:06 Creatinine 0.72 mg/dL (0.5-1.4) 12/01/21 06:06 Estim Creat Clear Calc 73.0 12/01/21 06:06 Estimated GFR > 60 12/01/21 06:06 Random Glucose 107 mg/dL (60-115) 12/01/21 06:06 Fasting Glucose 89 mg/dL (60-99) 11/30/21 06:39 Calcium 8.5 mg/dL (8.4-10.2) D 12/01/21 06:06 COVID-19 (LEXI) Negative (Negative) 11/30/21 06:18 COVID-19 Clin Com See Note 11/30/21 06:18 Blood Type A Positive 11/30/21 06:39 Antibody Screen NEGATIVE 11/30/21 06:39 Discharge Plan Discharge Patient Disposition: Home, Self-Care Discharge Diagnosis: reversal of colostomy Referrals: Gibran Wilson MD [Physician] - 1 Week Arina Joe MD [Primary Care Provider] - 1 Week Discharge Medications: New oxycodone-acetaminophen [Percocet] 5-325 mg tablet 1 tab PO Q4-6H PRN (Reason: pain) Qty: 20 0RF Rx Instructions: Partial Fill upon patient request. docusate sodium [Colace] 100 mg capsule 100 mg PO DAILY Qty: 30 0RF Continued bupropion HCl 150 mg tablet extended release 24 hr 1 tab PO QAM loratadine 10 mg Tablet 10 mg PO DAILY PRN (Reason: Allergic Symptoms) bupropion HCl 300 mg tablet extended release 24 hr 450 mg PO BEDTIME Discontinued (DME) colostomy bag, non-sterile 1 /2 (12 ) misc See Rx Instructions .Route Qty: 20 3RF Rx Instructions: As directed (DME) ostomy supplies Powder See Rx Instructions .Route Qty: 28.3 1RF Rx Instructions: prn as directed for skin irritation No Action fluconazole 150 mg tablet 150 mg PO ONCE Qty: 1 0RF Discharge Orders: Discharge Order (Routine); Ordered 12/05/21 Ordered By: David Hill Activity on Discharge: No heavy lifting Stand Alone Forms: Patient Portal Discharge page Activity Restrictions/Additional Instructions: If the incision area is tender, you may apply an ice pack for short intervals (No more than 20 minutes on, followed by at least 20 minutes off). Do not apply heat. Do not use creams, lotions, or topical antibiotics unless instructed to do so by your surgeon. These can cause infection or allergic reaction. OK to shower No lifting more than 20 lbs No strenuous activities Call the office for follow-up in 2 weeks - with Dr. Wilson Call Your Doctor If: -Your temperature exceeds 101.5? F -You experience excessive pain or swelling -You have an unexpected reaction to medication -You have excessive bleeding -You experience continued vomiting/nausea -Your incision begins to separate -Your incision shows signs of infection such as increased redness, swelling, excessive pain, drainage (light blood or clear fluid is normal) or heat Care Plan Goals: pain control Health Concerns: has depressions and anxiety Plan of Treatment: oral pain meds no lifting Assessment: doing well postop Discharge Date/Time: 12/05/21 11:23
== END 2021-12-05 11:23 | disposition home or self-care (01) | DRG 223 ==
LOC: HO.SSSA 06:38 → HO.S3 14:15
PROVIDERS: Nurse Practitioner; Physician Assistant Surgical; Admitting Provider Surgery; PCP Internal Medicine; Visit Provider Surgery
PROC: 0DSN0ZZ Reposition Sigmoid Colon, Open Approach (ICD-10-PCS; CPT 49320; principal; 2021-11-30 07:30)
DX: Z43.3 Encounter for attention to colostomy (principal); F32.A Depression, unspecified; K66.0 Peritoneal adhesions (postprocedural) (postinfection); Z20.822 Contact with and (suspected) exposure to COVID-19; Z86.16 Personal history of COVID-19; Z87.891 Personal history of nicotine dependence; Z91.040 Latex allergy status; Z91.010 Allergy to peanuts; Z79.899 Other long term (current) drug therapy
CPT/HCPCS: 36415; 80048; 85025; 85027; 86850; 86900; 86901; 87635; 88304; C1758; J0131; J1100; J1170; J2250; J2270; J2405; J3010

== ENCOUNTER → 2022-05-02 15:04 | Outpatient (BNVA) | payer OTHER, SELFPAY | PROVIDERS: PCP Internal Medicine; Visit Provider Surgery | DX: L90.5 Scar conditions and fibrosis of skin (principal); R19.4 Change in bowel habit | CPT/HCPCS: 99212 ==

== ENCOUNTER → 2022-05-04 09:14 | Outpatient (BNVA) | payer OTHER, SELFPAY | PROVIDERS: PCP Internal Medicine; Visit Provider Physician Assistant | DX: S16.1XXA Strain of muscle, fascia and tendon at neck level, initial encounter (principal); S39.012A Strain of muscle, fascia and tendon of lower back, initial encounter; S20.219A Contusion of unspecified front wall of thorax, initial encounter; W10.9XXA Fall (on) (from) unspecified stairs and steps, initial encounter | CPT/HCPCS: 99203 ==

== ENCOUNTER → 2022-05-06 11:04 | Outpatient (BNVA) | payer OTHER, SELFPAY | PROVIDERS: PCP Internal Medicine; Visit Provider Physician Assistant | DX: S16.1XXA Strain of muscle, fascia and tendon at neck level, initial encounter (principal); S39.012A Strain of muscle, fascia and tendon of lower back, initial encounter; W10.9XXA Fall (on) (from) unspecified stairs and steps, initial encounter | CPT/HCPCS: 99213 ==

== ENCOUNTER → 2022-07-11 15:08 | Outpatient (BNVA) | payer OTHER, SELFPAY | PROVIDERS: PCP Internal Medicine; Visit Provider Surgery | DX: L90.5 Scar conditions and fibrosis of skin (principal); R19.4 Change in bowel habit | CPT/HCPCS: 99212 ==

== ENCOUNTER 2024-11-02 11:50 | Emergency (ER) | payer OTHER, SELFPAY ==
--- NOTE | ~2024-11-02 | XR_ITS ---
CLINICAL HISTORY: pain Radiographs of the left shoulder, 4 views Comparison: None Findings: No fracture or dislocation. Normal acromiohumeral interval. Mild degenerative change. Bone mineralization is decreased. 1.8 cm calcification at the supraspinatus footplate. Impression: Calcific tendinitis. This document has been electronically signed by: Anny Presley MD on 11/02/2024 13:31:59
--- NOTE | 2024-11-02 12:01 | ED.GENADULT ---
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 Admits put arm straight out to prevent child from hitting another child and arm was shoved backwards. Reports associated pain radiating down LUE with limited ROM secondary to pain. Admits went to [facility] for workman's comp and they prescribed Flexeril/Meloxicam without relief and recommended PT which patient has starts on Monday. Denies numbness, tingling, weakness, CP /SOB Related Data Home Medications ?Medication ?Instructions ?Recorded ?Confirmed bupropion HCl 300 mg 24 hr tablet, 450 mg PO BEDTIME 06/01/21 07/11/22 extended release loratadine 10 mg tablet 10 mg PO DAILY PRN Allergic 06/01/21 07/11/22 Symptoms bupropion HCl 150 mg 24 hr tablet, 1 tab PO QAM 11/30/21 07/11/22 extended release Previous Rx's ?Medication ?Instructions ?Recorded menthol 0.44 %-zinc oxide 20.6 % 1 appl topical QID PRN skin 05/02/22 topical ointment in packet irritation #504 grams (Calmoseptine) menthol 0.44 %-zinc oxide 20.6 % 1 appl topical QID PRN Perianal 07/11/22 topical ointment (Calmoseptine) irritation #113 grams psyllium husk 3.4 gram/5.4 gram 1 tbsp PO BID #660 grams 07/11/22 oral powder (Metamucil) morphine 15 mg immediate release 15 mg PO Q6H PRN pain (scale score 11/02/24 tablet 7-10) 3 days #5 tabs Allergies Allergy/AdvReac Type Severity Reaction Status Date / Time latex [LATEX] Allergy Intermediate HIVES Verified 11/02/24 12:03 Seasonal Allergies Allergy Mild Itchy Eyes Verified 11/02/24 12:03 peanut [PEANUT] AdvReac Mild COLD Verified 11/02/24 12:03 SORES Review of Systems Review of Systems: Yes all other systems are reviewed and are negative Constitutional: Constitutional: Reports as per [facility] Past Medical History Attestation statement: The following information was validated with the patient. Source: old records reviewed Medical History Frequent bowel movements Frequent bowel movements Scar of abdominal wall History of COVID-19 Thyroid disease Depression Diverticulitis Surgical History History of colostomy reversal Hx of colonoscopy S/P colostomy Status post Shayy's procedure H/O hernia repair Social History Social History Household Members: Family Housing: House Are you a primary primary care sales representative to a significant other at home: Yes (children) Do you presently have visiting nurse or other home services: No Patient Tobacco Use Status: Former Tobacco user Tobacco use type: Cigarette Years Smoked: 20 Smoked in Last 30 Days: No Use of substances other than those prescribed or required for medical reasons: No Advance Directives: No Advance Directives Information Provided: Yes service: No Current occupational status: employed Physical Exam ED Vital Signs: Vital Signs - 24 hr 11/02/24 12:02 11/02/24 14:01 Temperature 98.8 F 99.1 F Pulse Rate 91 68 Respiratory Rate 16 16 Blood Pressure 131/86 134/82 Pulse Oximetry 98 98 Oxygen Delivery Method Room Air Room Air BMI result Body Mass Index 23.3 Const General: cooperative, healthy appearing and no acute distress Orientation/consciousness: patient oriented x3 Limitations: no limitations HENMT Head: Yes normal to inspection and Yes atraumatic Ears: hearing grossly normal bilaterally General nose exam: Normal external nose present Face and sinus: Yes normal facial exam Eyes General: appearance normal, both eyes and all related structures EOM: EOMs intact bilaterally Neck Neck: Yes normal visual inspection and Yes no meningeal signs Resp Effort & Inspection: normal respiratory effort and no respiratory distress Cardio Rate: regular rate Skin Rashes: no rashes Wounds: no wounds Neuro General: patient oriented x3, tone normal and no meningeal signs Cranial nerves: Yes CN's II-XII intact bilaterally Gait exam (Neuro): Normal gait present Extrem Other: left shoulder without noted deformity. Diffusely tender greatest to anterior aspect without warmth or erythema. Limited ROM secondary to pain. Neurovascularly intact distally. Left elbow/wrist/hand without tenderness. FROM intact General: Yes normal to inspection Course Course Course Narrative: RME performed by Elda Flores PA-C. Patient is a 59 year old assigned female at presenting to the emergency department with left shoulder pain. Patient states that on 10/31/2024 she had her left upper arm stretched and has had pain and issues with movement ever since. Patient states that she went to [facility] for workmans comp and they recommended PT and gave her meloxicam and flexeril. Detailed physical exam and review of systems are deferred to the recycling sorter. Imaging ordered. Patient placed back in the waiting room pending room availability and results. XR shoulder LT min 2V Impression: Calcific tendinitis > Results discussed with patient including worrisome signs and symptoms and strict return precautions, and when to return to the emergency department. They verbalized understanding and feel safe for discharge at this time. Medications Administered Discontinued Medications Generic Name Dose Route Start Last Admin Trade Name Freq PRN Reason Stop Dose Admin Ketorolac Tromethamine 30 mg 11/02/24 12:55 11/02/24 13:12 Ketorolac Tromethamine 30 Mg/Ml Vial IM 11/02/24 12:56 30 mg ONCE ONE Administration Lidocaine 1 patch 11/02/24 12:55 11/02/24 13:12 Lidocaine 4 % Patch Adh..Patch TRANSDERMA 11/02/24 12:56 1 patch ONCE ONE Administration Protocol Medical Decision Making Medical Decision Making MDM Narrative: 59-year-old female with a past medical history of thyroid disease, depression, diverticulitis, presenting to the ED complaining of left shoulder pain s/p hyperextension injury 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 on exam vital signs stable, NAD, nontoxic appearing, physical exam as noted above. Concern for tendon / ligamental vs rotator cuff injury vs bursitis. Low suspicion for fracture or DVT. No evidence of septic joint /arthritis plan: X-ray, pain control Please refer to course for remaining clinical decision making, interpretation of labs/imaging results, and discussions with consultants and/or family members. Differential Diagnosis Differential Diagnoses: The differential diagnosis associated with the presentation includes As above Independent Interpretation I performed an independent interpretation of an: Plain X-Ray Radiology Impression Discussion of test interpretation with radiology: I have reviewed the radiologist's reading. Independent Historian Clinical information obtained from an independent historian. History obtained from or confirmed by: Other External Record Review External record reviewed: Inpatient record, Office record, Outpatient record, Prior outpatient labs, Prior outpatient radiology, Primary care record and Outside ED record Tests considered The following testing was considered but not selected: As above Prescription Management I considered prescription management with: Pain Medication Chronic Conditions Patient?s care impacted by: Other Social Determinants Patient?s care significantly limited by Social Determinants of Health including: Other Social Determinant of Health Discharge Plan Discharge Clinical Impression: Calcific tendinitis Patient Disposition: Home, Self-Care Instructions: Tendinitis (ED) Additional Instructions: your x-ray shows calcific tendonitis continue taking previously prescribed meloxicam and Flexeril morphine as an opiate pain medication, take your for the next 3 days please continue to follow with [employer] for workmen's comp You may also follow-up with [facility] /your primary care doctor You will likely need an MRI if pain continues Physical therapy is still recommended If pain persists or worsens/ becomes unbearable or area begins to look infected return to the ED Prescriptions: New morphine 15 mg tablet 15 mg PO Q6H PRN (Reason: pain (scale score 7-10)) 3 Days Qty: 5 0RF Rx Instructions: Partial Fill upon patient request. No Action bupropion HCl 150 mg tablet extended release 24 hr 1 tab PO QAM loratadine 10 mg Tablet 10 mg PO DAILY PRN (Reason: Allergic Symptoms) bupropion HCl 300 mg tablet extended release 24 hr 450 mg PO BEDTIME Calmoseptine 0.44-20.6 % ointment in packet 1 appl topical QID PRN (Reason: skin irritation) Qty: 504 0RF menthol-zinc oxide [Calmoseptine] 0.44-20.6 % ointment 1 appl topical QID PRN (Reason: Perianal irritation) Qty: 113 0RF Metamucil 3.4 gram/5.4 gram powder 1 tbsp PO BID Qty: 660 0RF Rx Instructions: mix into at least 8 oz of water or juice before administering Referrals: [facility] [Outside] Arina Joe MD [Primary Care Provider] - 5 days Interventions: ED Discharge Assessment Last Done: 11/02/24 14:01 Discharge Date/Time: 11/02/24 14:02 Print Language: Surinamese
[2024-11-02 12:02] VITALS: BP 131/86; PULSE 91; RESP 16; TEMP 37.1; O2SAT 98; BMI 23.3
[2024-11-02] MEDS: Lidocaine 4 % Patch ADH..PATCH 1 PATCH TRANSDERMA (13:12)
[2024-11-02] MEDS: Ketorolac Tromethamine 30 MG/ML VIAL IM (13:12)
[2024-11-02 14:01] VITALS: BP 134/82; PULSE 68; RESP 16; TEMP 37.3; O2SAT 98
== END 2024-11-02 14:02 | disposition home or self-care (01) ==
PROVIDERS: Emergency Provider Emergency Medicine; PCP Internal Medicine
DX: Z04.2 Encounter for examination and observation following work accident (principal); M75.32 Calcific tendinitis of left shoulder; M25.512 Pain in left shoulder
CPT/HCPCS: 73030; 96372; 99284; J1885

== ENCOUNTER → 2024-11-02 12:10 | Outpatient (BNV) | payer OTHER, SELFPAY | PROVIDERS: Emergency Provider Emergency Medicine; PCP Internal Medicine; Visit Provider Radiology Diagnostic Radiology | DX: M75.32 Calcific tendinitis of left shoulder (principal) | CPT/HCPCS: 73030 ==